=== PATIENT | female | born 1990 | race Caucasian/White ===

== ENCOUNTER → 2022-10-30 | Outpatient (CLI) | payer OTHER, SELFPAY ==
--- NOTE | 2022-10-30 09:00 | CYSPIN_PTH ---
PATIENT: JW JOHNSON LOC: CT U#:[id number] AGE/SX: 32/F ROOM: RE10/30/[address]: Dr. Kacy Mullen MD : 1990 BED: DIS: 10/30/2022 SPEC #: [id number] RECD: 10/31/22 08:38 STATUS: CARLOS MANUEL TRIMBLE #: [id number] SHIN: 10/30/22 09:[address]: Kacy Mullen DEPT: CYTOLOGY RECD BY: Rachel Henry Tissues: Urine Procedures: Pap Stain (control) Special Stain Group II Cytospin Fluid HEADER OPERATION: Not noted PRE-OP DIAGNOSIS: Not noted TISSUE SUBMITTED: Urine for cytology DIAGNOSIS CYTOLOGY Urine for cytology (cytospin): Negative for high-grade urothelial carcinoma (NHGUC), Gricelda System Category II. See comment. MAE:radha 10/31/2022 COMMENT The specimen predominantly consists of squamous epithelial cells. Clinical correlation and appropriate follow up are necessary. The Gricelda System for urine cytology diagnostic categorization was used in the evaluation of this case. CYTOLOGY STUDY Slides are reviewed. CYTOLOGY GROSS Received is 40 ml of cloudy yellow fluid labeled with the patient's name and and designated per the requisition as urine. Submitted for cytology preparation. / radha 10/30/2022 TC:4 CPT: 86415
[2022-10-30 18:26] LABS: Cytology, Body Fluid / CSF SEE PATHOLOGY REPORT
== END | disposition home or self-care (01) ==
PROVIDERS: Referring Provider Urology; Visit Provider Urology
DX: R31.0 Gross hematuria (principal)
CPT/HCPCS: 88108; 88313

== ENCOUNTER → 2022-11-09 | Outpatient (CLI) | payer SELFPAY, OTHER ==
--- NOTE | 2022-11-09 13:00 | CT_ITS ---
STUDY: CT ABDOMEN AND PELVIS WITH AND WITHOUT CONTRAST REASON FOR EXAM: Female, 32 years old. GROSS HEMATURIA RADIATION DOSAGE (If Supplied By Facility): CTDIvol = ( 21.51 ) mGy, DLP = ( 4130.71 ) mGycm TECHNIQUE: Transaxial images were obtained from the dome of the diaphragm to the symphysis pubis without oral contrast. IV 100mL Isovue-300 was administered. Sagittal and coronal images were reconstructed. Individualized dose optimization techniques were used for this CT. COMPARISON: None. FINDINGS: The visualized lung bases are unremarkable. The visualized portions of the heart are within normal limits. Normal liver. Normal gallbladder and extrahepatic biliary system. Normal spleen. Normal pancreas. Normal bilateral adrenal glands. Normal right kidney. Normal left kidney. No definite renal or ureteral stones are seen. There is no hydronephrosis on either side. Evaluation of the GI tract is limited by absence of oral contrast. Cannot exclude stomach wall thickening. No dilated loops of bowel or evidence for obstruction. Cannot exclude segmental thickening of the goodson of the small or large bowel. Cannot exclude enteritis or colitis. Appendix within normal limits. Normal abdominal aorta. Normal inferior vena cava. Normal retroperitoneum. Normal urinary bladder. Normal visualized uterus. 4.5 cm probable right ovarian cyst. Pelvic ultrasound recommended. Normal abdominal wall. Normal osseous structures. CT/CT Abd/Pelvis W/WO Contrast IMPRESSION: 4.5 cm probable right ovarian cyst. Pelvic ultrasound recommended. No other definite acute or significant abnormality seen. Electronically Signed: Merlin Gann MD at 20:01 EDT ,
== END | disposition home or self-care (01) ==
LOC: CT 12:44
PROVIDERS: PCP Physician Assistant; Referring Provider Urology; Visit Provider Urology
DX: R31.0 Gross hematuria (principal)
CPT/HCPCS: 74178; Q9967

== ENCOUNTER 2022-11-15 06:33 | Day surgery (SDC) | payer SELFPAY, OTHER ==
[2022-11-09 13:34] LABS: Hematocrit 43.4 % (37-47); Hemoglobin 13.8 g/dL (12.0-15.0); Mean Corp Hgb Conc 31.8 g/dL (32-36); Mean Corpuscular Hgb 26.8 pg (27.0-32.0); Mean Corpuscular Volume 84.3 fL (81-99); Mean Platelet Vol. 8.9 fl (6.2-12.0); Platelet Count 288 K/mm3 (150-450); RBC Distribution Width CV 14.2 % (11.6-14.6); RBC Distribution Width SD 43.7 fl (35.1-43.9); Red Blood Count 5.15 M/mm3 (4.2-5.4); White Blood Count 9.6 K/mm3 (4.4-11.0)
[2022-11-09 13:49] LABS: Prothrombin Time (Protime)PT. 12.7 SECONDS (11.7-14.9)
[2022-11-09 13:50] LABS: Partial Thromboplast Time 26.2 Seconds (24.1-36.2)
[2022-11-09 13:58] LABS: AST(SGOT) 11 U/L (15-37); Alanine Aminotransfer ALT/SGPT 22 U/L (13-56); Albumin, Serum 3.5 g/dL (3.2-5.0); Alkaline Phosphatase 71 U/L (45-117); Bilirubin, Direct 0.11 mg/dL (0.00-0.30); Globulin 3.7 g/dL (2.2-4.2); Protein, Total 7.2 g/dL (6.4-8.2)
[2022-11-15] VITALS (9 sets, daily range): BP systolic 118–145; BP diastolic 63–84; PULSE 64–82; RESP 16; TEMP 36.4–37.2; O2SAT 92–99; BMI 38.2
[2022-11-15] MEDS: Lactated Ringers 1,000 ML 15 ML IV (06:50)
[2022-11-15 07:29] LABS: Internal QC Validated? YES +Cl - CLEAR BKGD; Pregnancy, Urine Negative Negative
--- NOTE | 2022-11-15 10:10 | DCINST_ITS ---
Discharge Instructions Diet Discharge Diet: No restrictions Activity Discharge Activity: Return to Normal Activity Dressing / Incision Call your doctor if you observe: Fever of 101 or Higher, Inability to urinate and Inability to have a bowel movement Follow Up Care Please Follow Up With: Kacy Mullen MD When: The office will call the patient for follow-up appointment. Test Results: Test results from this visit will be discussed in further detail at your follow- up appointment, if applicable. Discharge Plan Admission Attending Provider: Kacy Mullen Primary Care Provider: Didi Bennett Consulting Providers: Mac Gomez Discharge Orders/Prescriptions Referrals / Follow Up: Didi Bennett PA [Primary Care Provider] - Disposition Disposition (needs filled in before D/C Order can be placed): Home, Self Care
--- NOTE | 2022-11-15 10:10 | SUR.PHASEI ---
WHEN RN ATTEMPTS TO SPEAK WITH PATIENT, SHE TURNS HER HEAD AWAY AND WILL NOT SPEAK, FACIAL EXPRESSION CONVEYS ANNOYANCE. WILL NOT ANSWER QUESTIONS.
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
== END 2022-11-15 11:34 | disposition home or self-care (01) ==
LOC: SDC 06:34 → AC 06:35
PROVIDERS: Anesthesiology; PCP Physician Assistant; Referring Provider Urology; Visit Provider Urology
PROC: 0TBB8ZX Excision of Bladder, Via Natural or Artificial Opening Endoscopic, Diagnostic (ICD-10-PCS; CPT 52000; principal; 2022-11-15 08:30)
DX: R31.0 Gross hematuria (principal); K50.90 Crohn's disease, unspecified, without complications; R35.1 Nocturia; N81.4 Uterovaginal prolapse, unspecified; E78.5 Hyperlipidemia, unspecified
CPT/HCPCS: 52000; 36415; 80076; 81025; 85027; 85610; 85730; 87086; J7120; J2405

== ENCOUNTER → 2022-11-19 | Outpatient (CLI) | payer SELFPAY, OTHER ==
--- NOTE | 2022-11-19 14:38 | US_ITS ---
INDICATION: OVARIAN CYST EXAMINATION: Ultrasound US Pelvis Non-OB Complete TECHNIQUE: Transabdominal and transvaginal pelvic ultrasound was performed. Grayscale, spectral waveform, and color flow Doppler evaluation of the adnexa. COMPARISON: CT abdomen and pelvis November 09, 2022 FINDINGS: UTERUS: Anteverted. The uterus measures 8.02 x 3.05 x 4.79 cm.. There is no uterine mass. The endometrial stripe measures 4.5 mm in AP diameter which is within normal limits. RIGHT OVARY: 2.76 x 1.67 x 2.24 cm. Non-enlarged, normal echogenicity. This includes a well-defined 1.72 x 0.65 x 1.21 cm hypoechogenicity consistent with a follicular cyst, notably smaller in size from the hypodense lesion seen by CT. There is normal arterial inflow and venous outflow present in the right ovary. LEFT OVARY: 3.03 x 1.96 x 2.12 cm.. Non-enlarged, normal echogenicity. There is normal arterial inflow and venous outflow present in the left ovary. URINARY BLADDER: At the time of scanning, the bladder measures 13.85 x 7.6 x 9.16 cm, corresponding to a volume of 445.3 mL. No bladder wall thickening. FREE FLUID: None. US/Pelvic (Non ) IMPRESSION: Unremarkable pelvic ultrasound. There is no cystic lesion in the right ovary specifically correlating to the 4.5 cm hypodense area noted by CT earlier this month. Electronically Signed: Sin Fenton MD at 16:51 EDT Reading Location ID and State: [id number] / Unknown , Service support ,
== END | disposition home or self-care (01) ==
PROVIDERS: PCP Physician Assistant; Referring Provider Urology; Visit Provider Urology
DX: N83.201 Unspecified ovarian cyst, right side (principal)
CPT/HCPCS: 76856

== ENCOUNTER → 2022-12-10 | Outpatient (CLI) | payer OTHER, SELFPAY ==
[2022-12-10 15:00] LABS: Hematocrit 44.7 % (37-47); Hemoglobin 13.9 g/dL (12.0-15.0); Mean Corp Hgb Conc 31.1 g/dL (32-36); Mean Corpuscular Hgb 26.5 pg (27.0-32.0); Mean Corpuscular Volume 85.3 fL (81-99); Mean Platelet Vol. 9.4 fl (6.2-12.0); Platelet Count 235 K/mm3 (150-450); RBC Distribution Width SD 43.5 fl (35.1-43.9); Red Blood Count 5.24 M/mm3 (4.2-5.4); White Blood Count 9.6 K/mm3 (4.4-11.0)
[2022-12-10 15:18] LABS: Follicle Stimulating Hormone 1.1 mIU/mL; Luteinizing Hormone 2.8 mIU/mL; Thyroid Stim Hormone (TSH) 0.91 uIU/mL (0.358-3.74)
[2022-12-10 15:26] LABS: Hemoglobin A1c 5.5 % (3.8-5.6)
== END | disposition home or self-care (01) ==
LOC: WOBLAB 14:13
PROVIDERS: PCP Physician Assistant; Visit Provider Student in an Organized Health Care Education/Training Program
DX: N93.9 Abnormal uterine and vaginal bleeding, unspecified (principal)
CPT/HCPCS: 36415; 83001; 83002; 83036; 84443; 85027

== ENCOUNTER 2022-12-27 08:58 | Day surgery (SDC) | payer SELFPAY, OTHER ==
[2022-12-27] VITALS (11 sets, daily range): BP systolic 110–131; BP diastolic 59–83; PULSE 52–77; RESP 12–18; TEMP 36.1–36.8; O2SAT 92–100; BMI 37.0
--- NOTE | 2022-12-27 07:19 | PCM.HP.BLA ---
History and Physical Date of Admission: 12/27/22 HPI: 32-year-old female with abnormal uterine bleeding, pelvic pain, ovarian cyst plan for hysteroscopy, dilation curettage, laparoscopic ovarian cystectomy. Denies headache or vision changes, chest pain or shortness of breath, nausea or vomiting, diarrhea constipation, fevers or chills. 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 Depression and anxiety 2. GERD Surgical history: 1. Cystoscopy Medications: 1. Omeprazole 2. Duloxetine Allergies: Adhesive tape causes a rash, succinylcholine Family history: Denies history of blood clots or bleeding disorders Social history: Denies tobacco, alcohol, drug use review of system: Negative otherwise stated above Physical exam: Blood pressure 123/83, heart rate 75, respiratory rate 16, temp 97 ?F, oxygen saturation 99% on room air General: No acute distress HEENT: Normal cephalic/atraumatic Cardiac: Regular rate rhythm Respiratory: Clear to auscultation bilaterally Abdomen: Soft, nontender Extremities: No edema Musculoskeletal: Moves all extremities equally Neurologic: No focal deficits Assessment/plan: 32-year-old female with abnormal uterine bleeding, pelvic pain, ovarian cyst plan for hysteroscopy, dilation curettage, laparoscopic ovarian cystectomy. All risk, benefits, alternatives discussed with patient. Risk include but are not limited to: Risk of bleeding to the point of transfusion, infection, injury to surrounding tissue including bowel/bladder potentially requiring prolonged Glasgow catheter use/major abdominal vessels, VTE, ICU admission. Patient aware and consented.
[2022-12-27 09:43] LABS: Internal QC Validated? YES +Cl - CLEAR BKGD; Pregnancy, Urine Negative Negative
[2022-12-27] MEDS: Lactated Ringers 1,000 ML 15 ML IV (09:52)
--- NOTE | 2022-12-27 10:12 | PCM.OPRPT ---
Report of Operation Date of Procedure: 12/27/22 Pre-Operative Diagnosis: Pelvic pain, abnormal bleeding, ovarian cyst Post-Operative Diagnosis: Pelvic pain, abnormal bleeding, ovarian cyst, endometriosis Surgery/Procedure Performed:: Hysteroscopy, dilation curettage, laparoscopic right ovarian cystectomy, lysis of adhesion Description of Surgical Findings:: Normal-appearing external genitalia. Minimal uterine descensus. Normal-appearing cervix. Thickened endometrial lining on hysteroscopy. Enlarged right simple ovarian cyst, drained clear yellow fluid. Adhesion of colon fat to left pelvic sidewall. Endometriosis present in the posterior cul-de-sac. Surgeon: Karishma Good silver buffer: Leo Chavez Type of Anesthesia: General Specimen's removed: Endometrial curetting, right ovarian cyst Estimated Blood Loss (mL): 10cc Fluids Replaced: 800cc Description of Procedure: Indication/risk/benefits: 32-year-old female with abnormal uterine bleeding, pelvic pain, ovarian cyst plan for hysteroscopy, dilation curettage, laparoscopic ovarian cystectomy. All risk, benefits, alternatives discussed with patient. Risk include but are not limited to: Risk of bleeding to the point of transfusion, infection, injury to surrounding tissue including bowel/bladder potentially requiring prolonged Glasgow catheter use/major abdominal vessels, VTE, ICU admission. Patient aware and consented. Procedure: Patient taken to the operating room and placed under general anesthesia. Prepped and draped in the usual sterile fashion in the dorsal lithotomy position. Glasgow catheter placed. Weighted speculum placed in posterior vagina and Herrera retractor used to visualize the cervix. Anterior lip of the cervix grasped with Allis clamp. Cervix sequentially dilated and hysteroscopy completed with findings above. Curettings completed in 360 degree manner. Sargis manipulator placed and Allis clamp removed. Weighted speculum removed. Gloves were changed attention turned to the anterior abdominal wall. Supraumbilical skin incision made with scalpel and trocar placed under direct visualization. Insufflation of the abdomen completed. Right and left lower quadrant trocars placed under direct visualization. Inspection of the abdominal cavity noted findings stated above. Laparoscopic scissors were utilized to dissect colonic adhesions to left pelvic sidewall. Right ovarian cyst grasped and incised, drained. Removed using LigaSure device. Dissection bed hemostatic. Roman placed. Endometriosis noted in the posterior cul-de-sac. No fulguration or excision completed due to location and proximity to left ureter. Ovarian cyst wall removed through the right 8 mm trocar. Abdomen desufflated and trocars removed. Skin closed with subcuticular stitch. Uterine manipulator removed. Glasgow catheter removed. At the end of the procedure all needle, lap, sponge counts were correct. UOP: 50cc clear yellow urine Complications None Admit VTE Documentation VTE Mechan Device Prophylaxis: SCD's
--- NOTE | 2022-12-27 10:35 | EMB_PTH ---
PATIENT: JW JOHNSON LOC: [facility] – [place] U#:[id number] AGE/SX: 32/F ROOM: RE12/27/[address]: Dr. Karishma Good, : 1990 BED: DIS: 12/27/2022 SPEC #: [id number] RECD: 12/27/22 11:49 STATUS: CARLOS MANUEL NAI #: [id number] SHIN: 12/27/22 10:[address]: Karishma Good DEPT: SURGICAL PATHOLOGY RECD BY: Rachel Henry ENTERED: 12/27/22 13:28 SP TYPE: ENDOM BX/C USZANNE DR: SAM Bond Tissues: A - Endometrium, NOS B - OVARIAN CYST Procedures: Surgery Specimen Level IV HEADER OPERATION: Hysteroscopy, dilation and curettage PRE-OP DIAGNOSIS: Abnormal uterine bleeding, pelvic pain, ovarian cyst TISSUE SUBMITTED: A. Endometrial curettings B. Right ovarian cyst MICROSCOPIC DIAGNOSIS A. Endometrial curettings: Proliferative endometrium. B. Right ovarian cyst, cystectomy: Physiologic follicular cyst. SJ: 12/28/2022 MICROSCOPIC DESCRIPTION Slides are reviewed. GROSS DESCRIPTION A. Received in formalin is one container labeled with the patient name and designated endometrial curettings. The specimen consists of multiple fragments of hemorrhagic soft tissue measuring in aggregate 5 x 3 x 0.2 cm. The specimen is totally submitted in two cassettes. B. Received in fixative is one container labeled with the patient's name and designated right ovary cyst. The specimen consists of a previously opened cyst measuring 2.5 x 1.5 x 0.5 cm. Outer surface of cyst is without any appellations. Inner cyst wall ragged. It is serially sectioned. Also present in the container multiple pieces of soft tissue measuring in aggregate1.5 x 0.5 x 0.2 cm. The specimen is totally submitted in two cassettes. /MAE:jaqueline 12/27/22 TC:4 CPT: 26091 x 2
--- NOTE | 2022-12-27 10:37 | PCM.DC ---
Discharge Instructions Diet Discharge Diet: No restrictions Activity Discharge Activity: Return to Normal Activity and May Shower May resume sexual activity in: 2 weeks Weight Bearing Status: Weight bearing as tolerated Lifting Restrictions: No greater than 15 pounds Dressing / Incision Call your doctor if your incision/area has: Continuous Slow Oozing, Increased Pain/ Swelling, Increased Redness and Foul Smelling Discharge Call your doctor if you observe: Fever of 101 or Higher, Inability to urinate, Using more than 1 pad per hour, Shortness of breath, Chest pain, Calf discomfort and Uncontrolled pain Cleanse incision/area with: Soap & Water and Keep Dressing Clean & Dry Follow Up Care Please Follow Up With: Karishma Good DO When: 2 weeks post operative visit. Test Results: Test results from this visit will be discussed in further detail at your follow-up appointment, if applicable. Discharge Plan Admission Primary Reason for Your Visit: Hysteroscopy, laparoscopy Attending Provider: Karishma Good Primary Care Provider: Didi Bennett Discharge Orders/Prescriptions Prescriptions: New oxycodone 5 mg tablet 5 mg PO Q6H PRN (Reason: pain (scale score 7-10)) 3 Days Qty: 5 0RF Continued duloxetine 30 mg capsule,delayed release(DR/EC) 30 mg PO DAILY Patient Comments: TAKE ONE CAPSULE BY MOUTH DAILY omeprazole 20 mg tablet,delayed release (DR/EC) 20 mg PO DAILY PRN (Reason: GERD) Referrals / Follow Up: Didi Bennett PA [Primary Care Provider] - Disposition Disposition (needs filled in before D/C Order can be placed): Home, Self Care
[2022-12-27] MEDS: oxyCODONE 5 MG Tablet PO (15:05)
[2022-12-27] MEDS: Acetaminophen 500 MG Tablet 1000 MG PO (15:05)
== END 2022-12-27 16:46 | disposition home or self-care (01) ==
LOC: SDC 08:59 → AC 09:00
PROVIDERS: Anesthesiology; PCP Physician Assistant; Referring Provider Student in an Organized Health Care Education/Training Program; Visit Provider Student in an Organized Health Care Education/Training Program
PROC: 0UDB8ZZ Extraction of Endometrium, Via Natural or Artificial Opening Endoscopic (ICD-10-PCS; CPT 58558; principal; 2022-12-27 10:25)
PROC: (CPT 58661; 2022-12-27 10:25)
DX: N83.01 Follicular cyst of right ovary (principal); N80.329 Endometriosis of the posterior cul-de-sac, unspecified depth; N93.9 Abnormal uterine and vaginal bleeding, unspecified; R10.2 Pelvic and perineal pain; K21.9 Gastro-esophageal reflux disease without esophagitis; F32.A Depression, unspecified; F41.9 Anxiety disorder, unspecified; Z79.899 Other long term (current) drug therapy
CPT/HCPCS: 58662; 58558; 00840; 81025; 86850; 86900; 86901; 88305; J7120; J2405

== ENCOUNTER 2023-02-07 07:43 | Day surgery (SDC) | payer SELFPAY, OTHER ==
[2023-02-07] VITALS (15 sets, daily range): BP systolic 117–146; BP diastolic 66–95; PULSE 63–87; RESP 16–22; TEMP 36.3–36.8; O2SAT 93–100; BMI 37.5
[2023-02-07 08:08] LABS: Internal QC Validated? YES +Cl - CLEAR BKGD; Pregnancy, Urine Negative Negative
--- NOTE | 2023-02-07 08:08 | PCM.OPRPT ---
Report of Operation Date of Procedure: 02/07/23 Pre-Operative Diagnosis: Gross hematuria and flank pain Post-Operative Diagnosis: Same Surgery/Procedure Performed:: Cystoscopy, bilateral selective cytology, bilateral flexible ureteroscopy, bilateral ureteral stent insertion Surgeon: Kacy Mullen Type of Anesthesia: General Specimen's removed: Bilateral renal pelvis flushings for selective cytology Description of Procedure: The patient is a 33-year-old female with gross hematuria. She has had a negative CT scan, negative cystoscopy. She also has flank and abdominal discomfort. We discussed further evaluation with ureteroscopy and she has agreed to proceed. Informed consent was obtained. The patient was taken the operating room and placed on the operating room table. Anesthesia monitored the head, neck, airway, IV access and vital signs throughout the case. Once anesthesia was appropriately administered, the patient was placed into dorsolithotomy position was prepped and draped in usual sterile fashion. The cystoscope was inserted through the urethra under direct visualization into the urinary bladder. The bladder mucosa was visualized in its entirety revealing no evidence of mass, erythema, foreign body or other abnormality. Using a Pollick catheter, 1 for each side, access was obtained to each renal pelvis and irrigations were performed and the fluid was sent for cytology. At this time a 0.035 Glidewire was inserted into the left renal pelvis as seen on fluoroscopy. The flexible ureteroscope was advanced over the wire into the distal ureter and obstruction was met. After several attempts at advancing the ureteroscope over the Glidewire, the decision was made to place a ureteral stent which was done without difficulty. This process was repeated on the patient's right side also revealing distal ureteral narrowing and inability to advance the ureteroscope past the distal 1 cm of the ureter. After the second ureteral stent was in position with good curling in the renal pelvis and urinary bladder, the patient's bladder was emptied and the case was terminated. She was awakened and taken to the recovery room in good condition. Grafts/Implants Used: 6 x 24 JJ stents x2 Complications None Admit VTE Documentation VTE Present on Admission: Yes VTE Mechan Device Prophylaxis: SCD's VTE Pharm Prophylaxis ordered?: No
[2023-02-07] MEDS: Lactated Ringers 1,000 ML 15 ML IV ×2 (08:22→11:05)
[2023-02-07] MEDS: Cefazolin 2 GM in 0.9% Normal Saline (100mL Bag) 100 ML IV (08:46)
--- NOTE | 2023-02-07 09:00 | FLU_PTH ---
PATIENT: JW JOHNSON LOC: [facility] – [place] U#:[id number] AGE/SX: 33/F ROOM: RE02/07/[address]: Dr. Kacy Mullen MD : 1990 BED: DIS: 02/07/2023 SPEC #: [id number] RECD: 02/07/23 09:30 STATUS: CARLOS MANUEL NAI #: [id number] SHIN: 02/07/23 09:[address]: Kacy Mullen DEPT: CYTOLOGY RECD BY: Rachel Henry ENTERED: 02/07/23 10:43 SP TYPE: Fluid OTHR DR: SAM Bond Tissues: A - Pelvis, NOS B - Pelvis, NOS Procedures: Special Stain Group II Surgery Specimen Level IV Cytospin Fluid HEADER OPERATION: Cysto, bilateral selective cytology, bilateral ureteroscopy PRE-OP DIAGNOSIS: Gross hematuria, overactive bladder, nocturia TISSUE SUBMITTED: A - Right renal pelvic washings, B - Left renal pelvic washings DIAGNOSIS CYTOLOGY A. Right renal pelvic washings fluid (cytospin and cell block): Negative for high-grade urothelial carcinoma (NHGUC), Gricelda System Category II. See comment. B. Left renal pelvic washings fluid (cytospin and cell block): Negative for high-grade urothelial carcinoma (NHGUC), Gricelda System Category II. See comment. SJ:rg 02/08/2023 COMMENT A & B. Clusters of benign urothelial cells are noted. Clinical correlation and appropriate follow up are necessary. The Gricelda System for urine cytology diagnostic categorization was used in the evaluation of this case. Please make reference to previous specimen ([id number]) urine for cytology with diagnosis of negative for high-grade urothelial carcinoma (NHGUC). CYTOLOGY STUDY Slides are reviewed. CYTOLOGY GROSS A - Received is 2 ml of light pink cloudy fluid labeled with the patient's name and and designated per the requisition as right renal pelvic washings. Submitted for cytology preparation including cell block. B - Received is 2 ml of light pink cloudy fluid labeled with the patient's name and and designated per the requisition as left renal pelvic washings. Submitted for cytology preparation including cell block. / radha 02/07/2023 TC:5 CPT: 48061 x2
--- NOTE | 2023-02-07 09:49 | DCINST_ITS ---
Discharge Instructions Diet Discharge Diet: No restrictions Activity Discharge Activity: Return to Normal Activity Dressing / Incision Call your doctor if you observe: Fever of 101 or Higher, Inability to urinate and Inability to have a bowel movement Follow Up Care Please Follow Up With: Kacy Mullen MD When: The office will call to make arrangements for follow-up Test Results: Test results from this visit will be discussed in further detail at your follow- up appointment, if applicable. Discharge Plan Admission Attending Provider: Kacy Mullen Primary Care Provider: Didi Bennett Discharge Orders/Prescriptions Prescriptions: New ondansetron HCl [ondansetron HCl] 8 mg tablet 8 mg PO Q8H PRN PRN (Reason: Nausea) 7 Days Qty: 20 0RF oxycodone-acetaminophen [Percocet] 5-325 mg tablet 1 tab PO Q8H PRN (Reason: pain) 5 Days Qty: 15 0RF cephalexin [cephalexin] 500 mg capsule 500 mg PO Q12 3 Days Qty: 6 0RF phenazopyridine [Pyridium] 200 mg tablet 200 mg PO TID PRN PRN (Reason: Bladder Spasms) 7 Days Qty: 30 0RF Continued duloxetine 30 mg capsule,delayed release(DR/EC) 30 mg PO DAILY Patient Comments: TAKE ONE CAPSULE BY MOUTH DAILY omeprazole 20 mg tablet,delayed release (DR/EC) 20 mg PO DAILY PRN (Reason: GERD) Referrals / Follow Up: Didi Bennett PA [Primary Care Provider] - Disposition Disposition (needs filled in before D/C Order can be placed): Home, Self Care
[2023-02-07] MEDS: Ketorolac 30 MG/ML Syringe IV (11:25)
--- NOTE | 2023-02-07 12:25 | SUR.PHASEI ---
VERY HIGH ANXIETY. ATIVAN 1 MG GIVEN TOTAL, LAST AT 1009 KEEPS STATING SHE'S VERY PAINFUL, MOANING AT INTERVALS WHEN AWAKENING. DILAUDID 1.5 MG. TORADOL GIVEN. UPSET THAT'S SHE'S HAVING ANY PAIN. WAS STARTING TO DESAT AFTER LAST DOSE NARCOTICS GIVEN 1017, BEHAVES SIMILAR TO SLEEP APNEA. NEEDS MUCH REASSURANCE, WAS TRYING TO PULL RN INTO BED FOR CONTINUOUS HUGS REPEATEDLY. PATIENT KNOWN TO THIS RN, RESPONDED TO ANESTHESIA, AWAKENING, PAIN TOLERANCE WITH PREVIOUS SURGERY WHICH THIS RN RECOVERED. DR REID WAS UPDATED, ORDERED THE TORADOL, PO PYRIDIUM AFTER TAKING PO. PATIENT STATES SHE DOES NOT HAVE A RIDE UNTIL 5 PM.
[2023-02-07] MEDS: Phenazopyridine 95 MG Tablet 190 MG PO (13:00)
[2023-02-07] MEDS: Oxycodone/Apap 5/325 Tablet PO (13:19)
[2023-02-19 14:27] LABS: Cytology, Body Fluid / CSF SEE PATHOLOGY REPORT
[2023-02-19 14:27] LABS: Cytology, Body Fluid / CSF SEE PATHOLOGY REPORT
== END 2023-02-07 17:12 | disposition home or self-care (01) ==
LOC: SDC 07:45 → AC 07:46
PROVIDERS: Anesthesiology; PCP Physician Assistant; Referring Provider Urology; Visit Provider Urology
PROC: 0TJ98ZZ Inspection of Ureter, Via Natural or Artificial Opening Endoscopic (ICD-10-PCS; CPT 52352; principal; 2023-02-07 08:50)
DX: N13.5 Crossing vessel and stricture of ureter without hydronephrosis (principal); R31.0 Gross hematuria; E78.5 Hyperlipidemia, unspecified; R35.1 Nocturia; N32.81 Overactive bladder; N83.209 Unspecified ovarian cyst, unspecified side; N80.9 Endometriosis, unspecified; Z79.899 Other long term (current) drug therapy
CPT/HCPCS: 52332; 00910; 76000; 81025; 88108; 88305; 88313; J7120; C2617; J2405

== ENCOUNTER 2023-02-14 12:04 | Inpatient (IN) | payer OTHER, SELFPAY ==
[2023-02-14] VITALS (10 sets, daily range): BP systolic 125–144; BP diastolic 54–90; PULSE 94–143; RESP 15–19; TEMP 36.8–39.4; O2SAT 91–100; BMI 37.2; BMI 37.5
--- NOTE | 2023-02-14 13:01 | EKG12_ITS ---
Test Reason : FEVER Blood Pressure : / mmHG Vent. Rate : 131 BPM Atrial Rate : 131 BPM P-R Int : 148 ms QRS Dur : 084 ms QT Int : 290 ms P-R-T Axes : 026 008 014 degrees QTc Int : 428 ms Sinus tachycardia Possible Anterior infarct , age undetermined Abnormal ECG Confirmed by KOFFI MACHADO, KENNY ([id number]), design editor MICHAEL FLORES ([id number]) on 02/18/2023 2:18:50 PM Referred By: LESLEY Confirmed By:KENNY RAIN MD
--- NOTE | 2023-02-14 13:22 | CT_ITS ---
HISTORY: bilateral flank pain. TECHNIQUE: Helically acquired images were obtained of the abdomen and pelvis after the intravenous administration of 100mL Isovue-370. A radiation dose optimization technique was used for this scan. 438 images. COMPARISON: 11/09/2022. FINDINGS: LOWER CHEST: Lung bases clear. BOWEL: Bowel nondilated. No focal inflammatory change observed. PERITONEUM: No significant ascites. LIVER: No enhancing mass. Enlarged at 20 cm in length. GALLBLADDER/BILIARY TREE: Gallbladder present. SPLEEN/PANCREAS/ADRENAL GLAND: Homogeneous and nonenlarged. KIDNEYS: Interval placement of bilateral ureteral stents without hydronephrosis. Mild left greater than right perinephric stranding. Small region of decreased cortical enhancement in the left renal cortex. 3 mm left renal cyst. VESSELS: No abdominal aortic aneurysm. PELVIC ORGANS: 1.7 cm small cyst or dominant follicle in the right ovary. BONES: Intact. CT/Abdomen/Pelvis W IV Cont ONLY IMPRESSION: Small region of decreased cortical enhancement in the left kidney, concerning for focal pyelonephritis. Left greater than right perinephric edema or inflammation status post ureteral stent placement. No hydronephrosis. Decreased size of right ovarian cyst. Electronically Signed: Court Joy MD at 14:24 EDT ,
--- NOTE | 2023-02-14 13:25 | EDS_ITS ---
HPI History of Present Illness Chief Complaint: Fever Narrative Narrative: 33-year-old female with bilateral flank pain and fever that started last night. She has had the back pain and hematuria and has been seeing urology. She had stents placed on the fifth of this month. She states her back pain worsened last night and she started develop fevers. No constipation or diarrhea. No cough or shortness of breath. PFSH PFSH Medical History Anxiety Back pain Bladder disease Dietary restriction Easy bruising Endometriosis Fatty liver Gastric reflux Gross hematuria History of Crohn's disease History of edema History of GI bleed History of pain when walking Hx of Lyme disease Injury of head and neck Leg cramps Migraine headache Non-smoker Shortness of breath on exertion Syncope Wears glasses Home Medications duloxetine 30 mg capsule,delayed release 30 mg PO DAILY 12/21/22 [History Last Taken Unknown] omeprazole 20 mg tablet,delayed release 20 mg PO DAILY PRN GERD 12/21/22 [History Last Taken Unknown] cephalexin 500 mg capsule 500 mg PO Q12 post-operative 3 days #6 CAPSULES 02/07/23 [Rx Last Taken Unknown] ondansetron HCl 8 mg tablet 8 mg PO Q8H PRN PRN Nausea 7 days #20 TABLETS 02/07/23 [Rx Last Taken Unknown] oxycodone-acetaminophen 5 mg-325 mg tablet (Percocet) 1 tab PO Q8H PRN pain 5 days #15 tabs 02/07/23 [Rx Last Taken Unknown] phenazopyridine 200 mg tablet (Pyridium) 200 mg PO TID PRN PRN Bladder Spasms 7 days #30 tabs 02/07/23 [Rx Last Taken Unknown] Allergy/AdvReac Type Severity Reaction Status Date / Time succinylcholine Allergy Unknown Other Verified 02/14/23 12:07 adhesive tape AdvReac Rash Verified 02/14/23 12:07 Surgical History History of esophagogastroduodenoscopy (EGD) History of removal of Port-a-Cath History of stapedectomy History of surgery Hx of colonoscopy Hx of local excision of skin lesion Hx of oral surgery Social History Smoking Status: Never smoker ROS ROS ED Constitutional Constitutional ED: Reports chills, fever(s) and subjective; Denies sweats Eyes Eyes: Denies blurry vision or change in vision ENT ENT ED: Denies ear pain or sore throat Cardiovascular Cardiovascular: Denies chest pain, palpitations or racing heartbeat Respiratory/Chest Respiratory/Chest: Denies cough, dyspnea or sputum Gastrointestinal Gastrointestinal: Reports abdominal pain and nausea; Denies constipation, diarrhea or vomiting Genitourinary Genitourinary ED: Reports hematuria; Denies dysuria or urinary frequency Musculoskeletal Musculoskeletal: Denies arthralgias, myalgias or neck pain Integumentary Denies abscess, Abrasions or rash Neurologic Neurologic: Denies headache(s), paresthesias or weakness Psychiatric Psychiatric: Denies anxiety, depression, suicidal ideation or suicidal thoughts Endocrine Endocrinology: Denies polydipsia or polyuria EXAM Physical Exam Const Vital Signs: 02/14/23 12:05 02/14/23 12:19 02/14/23 12:24 Temperature 102.9 F H 98.5 F Temperature Source Oral Temporal Pulse Rate 143 H 128 H Respiratory Rate 18 18 Respiratory Effort Normal Non-Labored Respiratory Pattern Normal Blood Pressure 144/90 H 132/75 H Blood Pressure Mean 108 94 Pulse Ox 95 94 Oxygen Delivery Method Room Air Room Air Positive well nourished General Appearance ED: NAD; Negative for pallor HEENT Reports moist mucous membranes Eyes PERRL and EOMs intact bilaterally Chest Wall inspection of chest normal Resp normal respiratory effort and clear to auscultation bilaterally Cardio regular rhythm Rate: tachycardic GI normal to inspection, nondistended, normoactive bowel sounds Back/Spine General Back: CVA tenderness bilateral Extremity normal to inspection Neuro oriented x3 and CN's II-XII intact bilaterally Sensorium / Orientation: alert Motor Exam: strength 5/5 throughout Psych mental status grossly normal Skin no rashes or lesions noted and no wounds General Skin Exam: Negative for jaundice or pallor MDM MDM MDM Narrative Medical decision making narrative: 33-year-old female with history of hematuria with bilateral stents placed by Dr. Mullen on the fifth. She is complaining of fever, chills. She has bilateral flank pain which is worsened. Tmax of 103 at home. She took nothing prior to arrival for a fever. She is 102.3 here. She is given Tylenol. For her flank pain she was given fentanyl and Zofran for nausea. Given that she is tachycardic and febrile sepsis work-up was pursued. Most likely she has UTI/pyelonephritis however differential includes dehydration, electrolyte abnormalities, A-fib, sepsis, pneumonia, urinary outlet obstruction. Sepsis labs were ordered. Patient pancultured. Discharge Plan Triage Chief Complaint: Fever ED Provider: Anthony Burt Dx/Rx/DC Orders Prescriptions: No Action duloxetine 30 mg capsule,delayed release(DR/EC) 30 mg PO DAILY Patient Comments: TAKE ONE CAPSULE BY MOUTH DAILY omeprazole 20 mg tablet,delayed release (DR/EC) 20 mg PO DAILY PRN (Reason: GERD) ondansetron HCl [ondansetron HCl] 8 mg tablet 8 mg PO Q8H PRN PRN (Reason: Nausea) 7 Days Qty: 20 0RF oxycodone-acetaminophen [Percocet] 5-325 mg tablet 1 tab PO Q8H PRN (Reason: pain) 5 Days Qty: 15 0RF cephalexin [cephalexin] 500 mg capsule 500 mg PO Q12 3 Days Qty: 6 0RF phenazopyridine [Pyridium] 200 mg tablet 200 mg PO TID PRN PRN (Reason: Bladder Spasms) 7 Days Qty: 30 0RF Primary Care Provider: Didi Bennett Referrals: Didi Bennett PA [Primary Care Provider] -
--- NOTE | 2023-02-14 13:25 | RAD_ITS ---
HISTORY: sepsis. TECHNIQUE: XR Chest 1 View. COMPARISON: None. FINDINGS: CARDIOMEDIASTINAL BORDERS: Cardiac silhouette within normal limits in size. Mediastinal contour unremarkable. LUNGS: Mild linear left basilar opacity. PLEURA: No pleural effusion or pneumothorax seen. OSSEOUS STRUCTURES: Unremarkable. RAD/Chest 1 View (Portable) IMPRESSION: Mild left basilar atelectasis. Electronically Signed: Court Joy MD at 13:42 EDT ,
--- NOTE | 2023-02-14 13:25 | EX.ED.DYSGE1 ---
HPI History of Present Illness Chief Complaint: Fever Narrative Narrative: 33-year-old female with bilateral flank pain and fever that started last night. She has had the back pain and hematuria and has been seeing urology. She had stents placed on the fifth of this month. She states her back pain worsened last night and she started develop fevers. No constipation or diarrhea. No cough or shortness of breath. PFSH PFSH Medical History Anxiety Back pain Bladder disease Dietary restriction Easy bruising Endometriosis Fatty liver Gastric reflux Gross hematuria History of Crohn's disease History of edema History of GI bleed History of pain when walking Hx of Lyme disease Injury of head and neck Leg cramps Migraine headache Non-smoker Shortness of breath on exertion Syncope Wears glasses Home Medications duloxetine 30 mg capsule,delayed release 30 mg PO DAILY 12/21/22 [History Last Taken Unknown] omeprazole 20 mg tablet,delayed release 20 mg PO DAILY PRN GERD 12/21/22 [History Last Taken Unknown] ondansetron HCl 8 mg tablet 8 mg PO Q8H PRN PRN Nausea 7 days #20 TABLETS 02/07/23 [Rx Last Taken 02/13/23] oxycodone-acetaminophen 5 mg-325 mg tablet (Percocet) 1 tab PO Q8H PRN pain 5 days #15 tabs 02/07/23 [Rx Last Taken 02/13/23] phenazopyridine 200 mg tablet (Pyridium) 200 mg PO TID PRN PRN Bladder Spasms 7 days #30 tabs 02/07/23 [Rx Last Taken 02/13/23] Allergy/AdvReac Type Severity Reaction Status Date / Time succinylcholine Allergy Unknown Other Verified 02/14/23 12:07 adhesive tape AdvReac Rash Verified 02/14/23 12:07 Surgical History History of esophagogastroduodenoscopy (EGD) History of removal of Port-a-Cath History of stapedectomy History of surgery Hx of colonoscopy Hx of local excision of skin lesion Hx of oral surgery Social History Smoking Status: Never smoker ROS ROS ED Constitutional Constitutional ED: Reports chills, fever(s) and subjective; Denies sweats Eyes Eyes: Denies blurry vision or change in vision ENT ENT ED: Denies ear pain or sore throat Cardiovascular Cardiovascular: Denies chest pain, palpitations or racing heartbeat Respiratory/Chest Respiratory/Chest: Denies cough, dyspnea or sputum Gastrointestinal Gastrointestinal: Reports abdominal pain and nausea; Denies constipation, diarrhea or vomiting Genitourinary Genitourinary ED: Reports hematuria; Denies dysuria or urinary frequency Musculoskeletal Musculoskeletal: Denies arthralgias, myalgias or neck pain Integumentary Denies abscess, Abrasions or rash Neurologic Neurologic: Denies headache(s), paresthesias or weakness Psychiatric Psychiatric: Denies anxiety, depression, suicidal ideation or suicidal thoughts Endocrine Endocrinology: Denies polydipsia or polyuria EXAM Physical Exam Const Vital Signs: 02/14/23 12:05 02/14/23 12:19 02/14/23 12:24 Temperature 102.9 F H 98.5 F Temperature Source Oral Temporal Pulse Rate 143 H 128 H Respiratory Rate 18 18 Respiratory Effort Normal Non-Labored Respiratory Pattern Normal Blood Pressure 144/90 H 132/75 H Blood Pressure Mean 108 94 Pulse Ox 95 94 Oxygen Delivery Method Room Air Room Air 02/14/23 13:29 02/14/23 13:29 02/14/23 14:07 Temperature 102.3 F H 99.8 F H Temperature Source Oral Oral Pulse Rate 117 H Respiratory Rate 19 H Respiratory Effort Respiratory Pattern Blood Pressure 134/71 H Blood Pressure Mean 92 Pulse Ox 92 Oxygen Delivery Method Room Air Room Air Positive well nourished General Appearance ED: NAD; Negative for pallor HEENT Reports moist mucous membranes Eyes PERRL and EOMs intact bilaterally Chest Wall inspection of chest normal Resp normal respiratory effort and clear to auscultation bilaterally Cardio regular rhythm Rate: tachycardic GI normal to inspection, nondistended, normoactive bowel sounds Back/Spine General Back: CVA tenderness bilateral Extremity normal to inspection Neuro oriented x3 and CN's II-XII intact bilaterally Sensorium / Orientation: alert Motor Exam: strength 5/5 throughout Psych mental status grossly normal Skin no rashes or lesions noted and no wounds General Skin Exam: Negative for jaundice or pallor MDM MDM MDM Narrative Medical decision making narrative: 33-year-old female with history of hematuria with bilateral stents placed by Dr. Mullen on the fifth. She is complaining of fever, chills. She has bilateral flank pain which is worsened. Tmax of 103 at home. She took nothing prior to arrival for a fever. She is 102.3 here. She is given Tylenol. For her flank pain she was given fentanyl and Zofran for nausea and 30 cc/kg of IV fluids.. Given that she is tachycardic and febrile sepsis work-up was pursued. Most likely she has UTI/pyelonephritis however differential includes dehydration, electrolyte abnormalities, A-fib, sepsis, pneumonia, urinary outlet obstruction. Sepsis labs were ordered. Patient pancultured. CBC shows white blood cell count of 18.7. Hemoglobin stable 14. Platelets normal at 264. Renal function electrolytes within normal limits. LFTs slightly elevated AST 45, ALT 95. EKG sinus tachycardia at a rate of 131 bpm without sign of ischemic change on my interpretation. High-sensitivity troponin 3. Lactic acid 1.4. Urinalysis positive for infection. Chest x-ray in my interpretation shows no obvious infiltrate. Radiologist interprets this as left basilar atelectasis. Patient's pulse ox initially 95% on room air now down to 92%. Her heart rate is come down to 117 from 143. Temperature is now down to 98.8. COVID and influenza swabs are pending. CT of the abdomen pelvis shows pyelonephritis. Discussed with Dr. Mullen from urology who recommended admission. She will admit her under her service. She requests a medicine consult which was obtained. Patient initially given Rocephin however Paz requests ciprofloxacin. This was given. Patient admitted to the floor in stable condition. Impression: 1. Pyelonephritis 2. Sepsis Lab Data Attestation: I reviewed the patient's lab results. Labs: Laboratory Results - last 24 hr 02/14/23 02/14/23 02/14/23 00:21 13:19 13:45 WBC 18.7 H RBC 5.26 Hgb 14.0 Hct 44.3 MCV 84.2 MCH 26.6 L MCHC 31.6 L RDW Std Deviation 41.9 RDW Coeff of Anita 13.7 Plt Count 264 MPV 8.7 Immature Gran % (Auto) 0.600 Neut % (Auto) 83.5 H Lymph % (Auto) 6.5 L [place] % (Auto) 8.8 Eos % (Auto) 0.1 Baso % (Auto) 0.5 Absolute Neuts (auto) 15.6 H Absolute Lymphs (auto) 1.22 Nucleated RBC % 0 Differential Comment SCANNED Diff Path Review September foll PT 13.5 INR 1.0 APTT 26.3 Sodium 137 Potassium 4.0 Chloride 106 Carbon Dioxide 26.0 Anion Gap 5 BUN 14 Creatinine 0.97 Estim Creat Clear Calc 67.60 Est GFR (MDRD) Af Amer 85 Est GFR (MDRD) Non-Af 70 BUN/Creatinine Ratio 14.5 Glucose 118 H Lactic Acid 1.4 Calcium 8.8 Total Bilirubin 1.00 AST 45 H ALT 95 H Alkaline Phosphatase 85 Troponin I High Sens 3 Total Protein 7.6 Albumin 3.5 Globulin 4.1 Albumin/Globulin Ratio 0.9 Urine Color Yellow Urine Clarity Sl. Cloudy Urine pH 6.0 Ur Specific [place] 1.015 Urine Protein 100 H Urine Glucose (UA) Normal Urine Ketones Negative Urine Occult Blood 250 H Urine Nitrite Positive H Urine Bilirubin Negative Urine Urobilinogen Normal Ur Leukocyte Esterase 500 H Urine RBC 10-25 SEEN Urine WBC >100 SEEN Ur Squamous Epith Cells 0-5 SEEN Urine Bacteria 3+ Urine Mucus 0 SEEN Radiography Diagnostic Testing: Clinical Impression(s) from Imaging Studies Abdomen/Pelvis CT 02/14/23 13:22 IMPRESSION: Small region of decreased cortical enhancement in the left kidney, concerning for focal pyelonephritis. Left greater than right perinephric edema or inflammation status post ureteral stent placement. No hydronephrosis. Decreased size of right ovarian cyst. Electronically Signed: Court Joy MD at 14:24 EDT , Chest X-Ray 02/14/23 13:25 IMPRESSION: Mild left basilar atelectasis. Electronically Signed: Court Joy MD at 13:42 EDT , Discharge Plan Triage Chief Complaint: Fever ED Provider: Anthony Burt Dx/Rx/DC Orders Primary Care Provider: Didi Bennett
[2023-02-14 13:30] LABS: Absolute Lymphocyte Count 1.22 X10^3/uL (0.83-4.51); Absolute Neutrophil Count 15.6 X10^3/uL (2.0-7.7); Basophil% 0.5 % (0-1); Eosinophil# 0.01 X10^3/uL; Eosinophils% 0.1 % (0-5); Hematocrit 44.3 % (37-47); Lymphocyte # 1.22 X10^3/ul (0.83-4.51); Lymphocyte % 6.5 % (19-41); Mean Corp Hgb Conc 31.6 g/dL (32-36); Mean Corpuscular Hgb 26.6 pg (27.0-32.0); Mean Corpuscular Volume 84.2 fL (81-99); Mean Platelet Vol. 8.7 fl (6.2-12.0); Monocyte# 1.64 X10^3/uL; Monocyte% 8.8 % (0-10); NRBC Flagged by Analyzer 0 % (0-5); Neutrophil # 15.64 X10^3/uL (2.7-7.7); Neutrophil % 83.5 % (47-70); POSITIVE DIFFERENTIAL YES; Platelet Count 264 K/mm3 (150-450); RBC Distribution Width CV 13.7 % (11.6-14.6); RBC Distribution Width SD 41.9 fl (35.1-43.9); Red Blood Count 5.26 M/mm3 (4.2-5.4); White Blood Count 18.7 K/mm3 (4.4-11.0)
[2023-02-14] MEDS: Acetaminophen 500 MG Tablet 1000 MG PO (13:36)
[2023-02-14 13:37] LABS: Differential Indicated SCAN CRITERIA MET
[2023-02-14] MEDS: 0.9% Normal Saline (1000mL) 1,000 ML 999 ML IV ×2 (13:37→15:12)
[2023-02-14] MEDS: fentaNYL 100 MCG/2 ML Ampul 25 MCG IV (13:37)
[2023-02-14] MEDS: Ondansetron 4 MG/2 ML Vial IV (13:38)
[2023-02-14 13:44] LABS: Partial Thromboplast Time 26.3 Seconds (24.1-36.2); Prothrombin Time (Protime)PT. 13.5 SECONDS (11.7-14.9)
[2023-02-14 13:53] LABS: Mucous, Urine 0 SEEN /hpf (<or=2+)
[2023-02-14 14:00] LABS: Color, Urine Yellow (Yellow); Glucose, Dipstick Normal (Normal); Ketone-Dipstick Negative (Negative); Leukocyte Esterase-Dipstick 500 /ul (Negative); Nitrite-Dipstick Positive (Negative); Occult Blood-Urine 250 /ul (Negative); Protein-Dipstick 100 mg/dl (Negative); Specific Gravity, Urine 1.015 (1.002-1.030); Urine Bilirubin Dipstick Negative (Negative); Urine Clarity Sl. Cloudy (Clear); Urine Urobilinogen Normal (Normal)
[2023-02-14 14:02] LABS: Differential Comment SCANNED
[2023-02-14 14:11] LABS: Lactic Acid 1.4 mmol/L (0.4-1.9)
[2023-02-14 14:12] LABS: Red Blood Cells-Urine 10-25 SEEN /hpf (0-5); White Blood Cells >100 SEEN /hpf (0-5)
[2023-02-14 14:13] LABS: Bacteria 3+ /hpf (None Seen); Squamous Epithelial Cells - UA 0-5 SEEN /hpf (5-10)
[2023-02-14 14:19] LABS: ALB/GLOB Ratio 0.9 RATIO (0.9-2.4); AST(SGOT) 45 U/L (15-37); Alanine Aminotransfer ALT/SGPT 95 U/L (13-56); Albumin, Serum 3.5 g/dL (3.2-5.0); Alkaline Phosphatase 85 U/L (45-117); Anion Gap 5 (5-15); BUN 14 mg/dL (7-18); BUN/Creat Ratio 14.5 RATIO (10-20); Calcium,Total 8.8 mg/dL (8.5-10.1); Chloride 106 mmol/L (98-107); Creatinine, Serum 0.97 mg/dL (0.55-1.02); EST Glomerular Filtration Rate 70 mL/min (>60); Est Glom Filt Rate - Afr Amer 85 mL/min (>60); Globulin 4.1 g/dL (2.2-4.2); Glucose 118 mg/dL (74-106); Protein, Total 7.6 g/dL (6.4-8.2); Sodium Level 137 mmol/L (136-145); Troponin-I HS 3 pg/mL (3.0-54.0)
--- NOTE | 2023-02-14 15:06 | HP.PCM.HOS_ITS ---
HPI - General HPI Narrative WJ JOHNSON, is a 33 F who presents [facility] Medical History Anxiety Back pain Bladder disease Dietary restriction Easy bruising Endometriosis Fatty liver Gastric reflux Gross hematuria History of Crohn's disease History of edema History of GI bleed History of pain when walking Hx of Lyme disease Injury of head and neck Leg cramps Migraine headache Non-smoker Shortness of breath on exertion Syncope Wears glasses Home Medications duloxetine 30 mg capsule,delayed release 30 mg PO DAILY 12/21/22 [History Last Taken Unknown] omeprazole 20 mg tablet,delayed release 20 mg PO DAILY PRN GERD 12/21/22 [History Last Taken Unknown] cephalexin 500 mg capsule 500 mg PO Q12 post-operative 3 days #6 CAPSULES 02/07/23 [Rx Last Taken Unknown] ondansetron HCl 8 mg tablet 8 mg PO Q8H PRN PRN Nausea 7 days #20 TABLETS 02/07/23 [Rx Last Taken Unknown] oxycodone-acetaminophen 5 mg-325 mg tablet (Percocet) 1 tab PO Q8H PRN pain 5 days #15 tabs 02/07/23 [Rx Last Taken Unknown] phenazopyridine 200 mg tablet (Pyridium) 200 mg PO TID PRN PRN Bladder Spasms 7 days #30 tabs 02/07/23 [Rx Last Taken Unknown] Allergy/AdvReac Type Severity Reaction Status Date / Time succinylcholine Allergy Unknown Other Verified 02/14/23 12:07 adhesive tape AdvReac Rash Verified 02/14/23 12:07 Surgical History History of esophagogastroduodenoscopy (EGD) History of removal of Port-a-Cath History of stapedectomy History of surgery Hx of colonoscopy Hx of local excision of skin lesion Hx of oral surgery Social History Smoking Status: Never smoker Vital Signs Vital Signs Vital Signs: 02/14/23 12:05 02/14/23 12:19 02/14/23 12:24 Temperature 102.9 F H 98.5 F Temperature Source Oral Temporal Pulse Rate 143 H 128 H Respiratory Rate 18 18 Respiratory Effort Normal Non-Labored Respiratory Pattern Normal Blood Pressure 144/90 H 132/75 H Blood Pressure Mean 108 94 Pulse Ox 95 94 Oxygen Delivery Method Room Air Room Air 02/14/23 13:29 02/14/23 13:29 02/14/23 14:07 Temperature 102.3 F H 99.8 F H Temperature Source Oral Oral Pulse Rate 117 H Respiratory Rate 19 H Respiratory Effort Respiratory Pattern Blood Pressure 134/71 H Blood Pressure Mean 92 Pulse Ox 92 Oxygen Delivery Method Room Air Room Air Weight Weight: 210 lb Body Mass Index (BMI) 37.2 Results Lab / Micro Data 02/14/23 00:21 02/14/23 13:19 Labs: Laboratory Results - last 24 hr 02/14/23 00:21: WBC 18.7 H, RBC 5.26, Hgb 14.0, Hct 44.3, MCV 84.2, MCH 26.6 L, MCHC 31.6 L, RDW Std Deviation 41.9, RDW Coeff of Anita 13.7, Plt Count 264, MPV 8.7, Immature Gran % (Auto) 0.600, Neut % (Auto) 83.5 H, Lymph % (Auto) 6.5 L, [place] % (Auto) 8.8, Eos % (Auto) 0.1, Baso % (Auto) 0.5, Absolute Neuts (auto) 15.6 H, Absolute Lymphs (auto) 1.22, Nucleated RBC % 0, Differential Comment SCANNED, Diff Path Review September02/14/23 13:19: PT 13.5, INR 1.0, APTT 26.3, Sodium 137, Potassium 4.0, Chloride 106, Carbon Dioxide 26.0, Anion Gap 5, BUN 14, Creatinine 0.97, Estim Creat Clear Calc 67.60, Est GFR (MDRD) Af Amer 85, Est GFR (MDRD) Non-Af 70, BUN/Creatinine Ratio 14.5, Glucose 118 H, Lactic Acid 1.4, Calcium 8.8, Total Bilirubin 1.00, AST 45 H, ALT 95 H, Alkaline Phosphatase 85, Troponin I High Sens 3, Total Protein 7.6, Albumin 3.5, Globulin 4.1, Albumin/Globulin Ratio 0.9 02/14/23 13:45: Urine Color Yellow, Urine Clarity Sl. Cloudy, Urine pH 6.0, Ur Specific [place] 1.015, Urine Protein 100 H, Urine Glucose (UA) Normal, Urine Ketones Negative, Urine Occult Blood 250 H, Urine Nitrite Positive H, Urine Bilirubin Negative, Urine Urobilinogen Normal, Ur Leukocyte Esterase 500 H, Urine RBC 10-25 SEEN, Urine WBC >100 SEEN, Ur Squamous Epith Cells 0-5 SEEN, Urine Bacteria 3+, Urine Mucus 0 SEEN Radiology Impression Abdomen/Pelvis CT 02/14/23 13:22 IMPRESSION: Small region of decreased cortical enhancement in the left kidney, concerning for focal pyelonephritis. Left greater than right perinephric edema or inflammation status post ureteral stent placement. No hydronephrosis. Decreased size of right ovarian cyst. Electronically Signed: Court Joy MD at 14:24 EDT , Chest X-Ray 02/14/23 13:25 IMPRESSION: Mild left basilar atelectasis. Electronically Signed: Court oJy MD at 13:42 EDT ,
[2023-02-14] MEDS: Ceftriaxone 1 GM/50 ML BAG IV (15:12)
--- NOTE | 2023-02-14 15:25 | PN.HOSP_ITS ---
Subjective Subjective 33-year-old female presents to the hospital with significant abdominal pain and fever that worsened last night. She states that about a week ago she had cystoscopy with bilateral ureteral stents placed secondary to gross hematuria. She was discharged on Keflex at that time but now presents with what appears to be a pyelonephritis. She is being admitted by urology however they requested assistance with medical management secondary to her sepsis and borderline low oxygen, she is sitting currently at around 90% on room air and she denies a history of asthma or other respiratory illnesses. Objective Data Objective Data Vital Signs: Vital Signs Temp Pulse Resp BP Pulse Ox O2 Del Method 99.8 F H 117 H 19 H 134/71 H 92 Room Air 02/14/23 14:07 02/14/23 14:07 02/14/23 14:07 02/14/23 14:07 02/14/23 14:07 02/14/23 14:07 Oxygen Delivery Method Room Air Weight: 210 lb Body Mass Index (BMI) 37.2 Intake & Output: Intake and Output for Last 24 Hours 02/13/23 02/14/23 02/15/23 03:59 03:59 03:59 Intake Total 1000 / 1000 Balance 1000 / 1000 Lab / Micro Data 02/14/23 00:21 02/14/23 13:19 Labs: Laboratory Results - last 24 hr 02/14/23 00:21: WBC 18.7 H, RBC 5.26, Hgb 14.0, Hct 44.3, MCV 84.2, MCH 26.6 L, MCHC 31.6 L, RDW Std Deviation 41.9, RDW Coeff of Anita 13.7, Plt Count 264, MPV 8.7, Immature Gran % (Auto) 0.600, Neut % (Auto) 83.5 H, Lymph % (Auto) 6.5 L, [place] % (Auto) 8.8, Eos % (Auto) 0.1, Baso % (Auto) 0.5, Absolute Neuts (auto) 15.6 H, Absolute Lymphs (auto) 1.22, Nucleated RBC % 0, Differential Comment SCANNED, Diff Path Review September02/14/23 13:19: PT 13.5, INR 1.0, APTT 26.3, Sodium 137, Potassium 4.0, Chloride 106, Carbon Dioxide 26.0, Anion Gap 5, BUN 14, Creatinine 0.97, Estim Creat Clear Calc 67.60, Est GFR (MDRD) Af Amer 85, Est GFR (MDRD) Non-Af 70, BUN/Creatinine Ratio 14.5, Glucose 118 H, Lactic Acid 1.4, Calcium 8.8, Total Bilirubin 1.00, AST 45 H, ALT 95 H, Alkaline Phosphatase 85, Troponin I High Sens 3, Total Protein 7.6, Albumin 3.5, Globulin 4.1, Albumin/Globulin Ratio 0.9 02/14/23 13:45: Urine Color Yellow, Urine Clarity Sl. Cloudy, Urine pH 6.0, Ur Specific [place] 1.015, Urine Protein 100 H, Urine Glucose (UA) Normal, Urine Ketones Negative, Urine Occult Blood 250 H, Urine Nitrite Positive H, Urine Bilirubin Negative, Urine Urobilinogen Normal, Ur Leukocyte Esterase 500 H, Urine RBC 10-25 SEEN, Urine WBC >100 SEEN, Ur Squamous Epith Cells 0-5 SEEN, Urine Bacteria 3+, Urine Mucus 0 SEEN Radiography Diagnostic Testing: Radiology Impression Abdomen/Pelvis CT 02/14/23 13:22 IMPRESSION: Small region of decreased cortical enhancement in the left kidney, concerning for focal pyelonephritis. Left greater than right perinephric edema or inflammation status post ureteral stent placement. No hydronephrosis. Decreased size of right ovarian cyst. Electronically Signed: Court Joy MD at 14:24 EDT , Chest X-Ray 02/14/23 13:25 IMPRESSION: Mild left basilar atelectasis. Electronically Signed: Court Joy MD at 13:42 EDT , Physical Exam Narrative General: Alert, Oriented x3, Cooperative, No apparent distress HEENT: Atraumatic, PERRLA, EOMI, Normocephalic Oral: Dry mucosa Neck: Supple, No JVD Lungs: Diminished with fine basilar crackles, Normal air movement, No rhonchi, No wheeze, No rales Cardiovascular: Tachycardic, Regular Rhythm, Normal S1, Normal S2, No murmurs Abdomen: Soft, moderate tender to palpation bilateral flanks, Non-Distended, No Hepato-splenomegaly Extremities: No edema, Capillary Refill Less than 3 Seconds Skin: No rashes, No breakdown Musculoskeletal: No Tenderness to Palpation of Joints or Extremities Neurological: Cranial nerves II-XII grossly intact, Motor Exam 5/5 strength throughout, Sensory exam intact to light touch and pain Psych/Mental Status: Normal Affect, Appropriate Assessment & Plan Assessment/Plan (1) Pyelonephritis: PLAN: Plan 1. Sepsis from UTI with pyelonephritis after cystoscopy with bilateral ureteral stents ? Continue with IV fluids and antibiotics ? Blood culture and urine cultures are pending ? I do believe that currently her low oxygen is due to atelectasis, she states that it hurts to breathe or when she tries to take a deep breath. When she gets to the floor will recommend incentive spirometry 2. Anxiety/depression ? Stable ? Can continue with her home medications 3. GERD ? Stable ? Continue with PPI Charges/Coding Visit Charges Inpatient E&M: 21019 Subs Hosp L2
[2023-02-14] MEDS: Ciprofloxacin 400 MG/200 ML BAG 200 MG IV ×2 (15:41→21:06)
--- NOTE | 2023-02-14 17:20 | PCM.HP.STD ---
HPI - General General Date of Admission: 02/14/23 Date of Service: 02/14/23 Chief Complaint: Fever and flank pain HPI Narrative JW JOHNSON, is a 33 F who underwent a cystoscopy with bilateral ureteral stent insertion 1 week ago for evaluation of gross hematuria. She was having flank pain at home with minimal hematuria and no other significant symptoms until last night when she spiked a fever over 102. When she called the office this morning we sent her into the emergency room for evaluation and management. She denies any nausea, vomiting, but has been having fever and chills. There is some mild dysuria that she says has been improving since she has been into the emergency room. She reports that she has been eating less in the last couple of days but is taking fluids okay. There has been minimal hematuria. There has been bilateral flank pain since the ureteral stents were inserted. She denies symptoms of upper respiratory infection aside from some pain with deep inspiration. We did discuss her using an incentive spirometer which will be ordered to bedside. [facility] Medical History Anxiety Back pain Bladder disease Dietary restriction Easy bruising Endometriosis Fatty liver Gastric reflux Gross hematuria History of Crohn's disease History of edema History of GI bleed History of pain when walking Hx of Lyme disease Injury of head and neck Leg cramps Migraine headache Non-smoker Shortness of breath on exertion Syncope Wears glasses Home Medications duloxetine 30 mg capsule,delayed release 30 mg PO DAILY 12/21/22 [History Last Taken Unknown] omeprazole 20 mg tablet,delayed release 20 mg PO DAILY PRN GERD 12/21/22 [History Last Taken Unknown] ondansetron HCl 8 mg tablet 8 mg PO Q8H PRN PRN Nausea 7 days #20 TABLETS 02/07/23 [Rx Last Taken 02/13/23] oxycodone-acetaminophen 5 mg-325 mg tablet (Percocet) 1 tab PO Q8H PRN pain 5 days #15 tabs 02/07/23 [Rx Last Taken 02/13/23] phenazopyridine 200 mg tablet (Pyridium) 200 mg PO TID PRN PRN Bladder Spasms 7 days #30 tabs 02/07/23 [Rx Last Taken 02/13/23] Allergy/AdvReac Type Severity Reaction Status Date / Time succinylcholine Allergy Unknown Other Verified 02/14/23 12:07 adhesive tape AdvReac Rash Verified 02/14/23 12:07 Surgical History History of esophagogastroduodenoscopy (EGD) History of removal of Port-a-Cath History of stapedectomy History of surgery Hx of colonoscopy Hx of local excision of skin lesion Hx of oral surgery Social History Smoking Status: Never smoker ROS Constitutional Constitutional: Reports chills and fever(s); Denies excessive sweating, headache(s) or weakness Eyes Eyes: Reports systems reviewed and no addt'l complaints, except as documented ENT HEENT: Reports systems reviewed and no addt'l complaints, except as documented Cardiovascular Cardiovascular: Denies chest pain, dizziness or dyspnea Respiratory/Chest Respiratory/Chest: Denies chest congestion, chest tightness, cough or dyspnea Gastrointestinal Gastrointestinal: Denies constipation, diarrhea, nausea or vomiting Genitourinary Genitourinary: Reports dysuria, flank pain, hematuria, low back pain, urinary frequency and urinary urgency; Denies urinary incontinence Musculoskeletal Musculoskeletal: Reports systems reviewed and no addt'l complaints, except as documented Integumentary Integumentary: Reports systems reviewed and no addt'l complaints, except as documented Neurologic Neurologic: Reports systems reviewed and no addt'l complaints, except as documented Psychiatric Psychiatric: Reports systems reviewed and no addt'l complaints, except as documented Endocrine Endocrinology: Reports systems reviewed and no addt'l complaints, except as documented Hematologic/Lymphatic Hematologic/Lymphatic: Reports systems reviewed and no addt'l complaints, except as documented Allergic/Immunologic Allergic/Immunologic: Reports systems reviewed and no addt'l complaints, except as documented Vital Signs Vital Signs Vital Signs: 02/14/23 12:05 02/14/23 12:19 02/14/23 12:24 Temperature 102.9 F H 98.5 F Temperature Source Oral Temporal Pulse Rate 143 H 128 H Respiratory Rate 18 18 Respiratory Effort Normal Non-Labored Respiratory Pattern Normal Blood Pressure 144/90 H 132/75 H Blood Pressure Mean 108 94 Pulse Ox 95 94 Oxygen Delivery Method Room Air Room Air 02/14/23 13:29 02/14/23 13:29 02/14/23 14:07 Temperature 102.3 F H 99.8 F H Temperature Source Oral Oral Pulse Rate 117 H Respiratory Rate 19 H Respiratory Effort Respiratory Pattern Blood Pressure 134/71 H Blood Pressure Mean 92 Pulse Ox 92 Oxygen Delivery Method Room Air Room Air 02/14/23 16:39 Temperature 99.8 F H Temperature Source Pulse Rate 113 H Respiratory Rate 18 Respiratory Effort Respiratory Pattern Blood Pressure 132/76 H Blood Pressure Mean 94 Pulse Ox 92 Oxygen Delivery Method Weight Weight: 95.254 kg Body Mass Index (BMI) 37.2 Physical Exam Const alert, oriented x3 and no apparent distress General Appearance: cooperative and comfortable HEENT normocephalic, head/scalp atraumatic, hearing grossly normal bilaterally, external ears normal and external nose normal Eyes General Eye: normal appearance of both eyes Neck supple General: normal visual inspection and trachea midline Chest inspection of chest normal Chest: symmetrical chest wall rise Resp normal respiratory effort, normal air movement and no retractions Cardio Rate: tachycardic GI soft to palpation, non-tender and non-distended Bladder / Kidney Exam: CVA tenderness bilateral Back/Spine General Back: CVA tenderness bilateral Extremity normal to inspection Skin no rashes or lesions noted, no wounds, skin turgor normal, no jaundice, no petechiae and no mottling Neuro oriented x3, CN's II-XII intact bilaterally and moves all extremities Psych mental status grossly normal, thought process normal and cooperative Results Lab / Micro Data 02/14/23 00:21 02/14/23 13:19 Labs: Laboratory Results - last 24 hr 02/14/23 00:21: WBC 18.7 H, RBC 5.26, Hgb 14.0, Hct 44.3, MCV 84.2, MCH 26.6 L, MCHC 31.6 L, RDW Std Deviation 41.9, RDW Coeff of Anita 13.7, Plt Count 264, MPV 8.7, Immature Gran % (Auto) 0.600, Neut % (Auto) 83.5 H, Lymph % (Auto) 6.5 L, [place] % (Auto) 8.8, Eos % (Auto) 0.1, Baso % (Auto) 0.5, Absolute Neuts (auto) 15.6 H, Absolute Lymphs (auto) 1.22, Nucleated RBC % 0, Differential Comment SCANNED, Diff Path Review September02/14/23 13:19: PT 13.5, INR 1.0, APTT 26.3, Sodium 137, Potassium 4.0, Chloride 106, Carbon Dioxide 26.0, Anion Gap 5, BUN 14, Creatinine 0.97, Estim Creat Clear Calc 67.60, Est GFR (MDRD) Af Amer 85, Est GFR (MDRD) Non-Af 70, BUN/Creatinine Ratio 14.5, Glucose 118 H, Lactic Acid 1.4, Calcium 8.8, Total Bilirubin 1.00, AST 45 H, ALT 95 H, Alkaline Phosphatase 85, Troponin I High Sens 3, Total Protein 7.6, Albumin 3.5, Globulin 4.1, Albumin/Globulin Ratio 0.9 02/14/23 13:45: Urine Color Yellow, Urine Clarity Sl. Cloudy, Urine pH 6.0, Ur Specific [place] 1.015, Urine Protein 100 H, Urine Glucose (UA) Normal, Urine Ketones Negative, Urine Occult Blood 250 H, Urine Nitrite Positive H, Urine Bilirubin Negative, Urine Urobilinogen Normal, Ur Leukocyte Esterase 500 H, Urine RBC 10-25 SEEN, Urine WBC >100 SEEN, Ur Squamous Epith Cells 0-5 SEEN, Urine Bacteria 3+, Urine Mucus 0 SEEN Micro: Microbiology 02/14/23 15:40 Nasal Secretion SARS-CoV-2 & FLU Antigen (Rapid) - Final Radiology Impression Abdomen/Pelvis CT 02/14/23 13:22 IMPRESSION: Small region of decreased cortical enhancement in the left kidney, concerning for focal pyelonephritis. Left greater than right perinephric edema or inflammation status post ureteral stent placement. No hydronephrosis. Decreased size of right ovarian cyst. Electronically Signed: Court Joy MD at 14:24 EDT , Chest X-Ray 02/14/23 13:25 IMPRESSION: Mild left basilar atelectasis. Electronically Signed: Court Joy MD at 13:42 EDT , Assessment & Plan Assessment/Plan (1) Urinary tract infection: (2) Sepsis: PLAN: Plan antibiotics and await culture results fluids and supportive care incentive spirometer, increase pulmonary toilet if no improvement repeat labs in the am appreciate medicine following
[2023-02-14] MEDS: Acetaminophen 325 MG Tablet 650 MG PO (18:21)
[2023-02-14] MEDS: Lactated Ringers 1,000 ML 150 ML IV (18:21)
[2023-02-14] MEDS: Docusate Sodium 100 MG Capsule PO (21:16)
[2023-02-14] MEDS: Enoxaparin 40 MG/0.4 ML Syringe SC (21:25)
[2023-02-15] VITALS (10 sets, daily range): BP systolic 117–137; BP diastolic 58–75; PULSE 95–99; RESP 15–18; TEMP 36.5–38.5; O2SAT 92–96
[2023-02-15] MEDS: Lactated Ringers 1,000 ML 150 ML IV ×3 (01:22→16:20)
[2023-02-15] MEDS: Acetaminophen 325 MG Tablet 650 MG PO ×2 (03:54→21:11)
[2023-02-15] MEDS: oxyCODONE 5 MG Tablet PO ×2 (03:54→16:28)
[2023-02-15 06:14] LABS: Absolute Lymphocyte Count 1.47 X10^3/uL (0.83-4.51); Absolute Neutrophil Count 10.7 X10^3/uL (2.0-7.7); Basophil# 0.06 X10^3/uL; Basophil% 0.4 % (0-1); Eosinophils% 0.7 % (0-5); Hematocrit 36.4 % (37-47); Hemoglobin 11.6 g/dL (12.0-15.0); Lymphocyte # 1.47 X10^3/ul (0.83-4.51); Lymphocyte % 10.8 % (19-41); Mean Corp Hgb Conc 31.9 g/dL (32-36); Mean Corpuscular Hgb 27.4 pg (27.0-32.0); Mean Corpuscular Volume 85.8 fL (81-99); Mean Platelet Vol. 9.1 fl (6.2-12.0); Monocyte# 1.21 X10^3/uL; Monocyte% 8.9 % (0-10); NRBC Flagged by Analyzer 0 % (0-5); Neutrophil # 10.72 X10^3/uL (2.7-7.7); Neutrophil % 78.5 % (47-70); Platelet Count 202 K/mm3 (150-450); RBC Distribution Width CV 14.1 % (11.6-14.6); RBC Distribution Width SD 43.8 fl (35.1-43.9); Red Blood Count 4.24 M/mm3 (4.2-5.4); White Blood Count 13.7 K/mm3 (4.4-11.0)
[2023-02-15 06:42] LABS: Anion Gap 0 (5-15); BUN 9 mg/dL (7-18); Calcium,Total 8.3 mg/dL (8.5-10.1); Chloride 111 mmol/L (98-107); Creatinine, Serum 0.69 mg/dL (0.55-1.02); EST Glomerular Filtration Rate 103 mL/min (>60); Est Glom Filt Rate - Afr Amer 125 mL/min (>60); Estimated Creatinine Clearance 95.03 ml/min; Glucose 115 mg/dL (74-106); Potassium 3.8 mmol/L (3.5-5.1); Sodium Level 138 mmol/L (136-145)
--- NOTE | 2023-02-15 07:40 | PN.HOSP_ITS ---
Subjective Subjective Feeling better, still with general myalgias and bilateral flank pains. Objective Data Objective Data Vital Signs: Vital Signs Temp Pulse Resp BP Pulse Ox O2 Del Method 37.5 C H 95 15 117/58 L 92 Room Air 02/15/23 05:37 02/15/23 05:37 02/15/23 05:37 02/15/23 05:37 02/15/23 05:45 02/15/23 05:45 Oxygen Delivery Method Room Air Weight: 96.162 kg Body Mass Index (BMI) 37.5 Intake & Output: Intake and Output for Last 24 Hours 02/13/23 02/14/23 02/15/23 23:59 23:59 23:59 Intake Total 2450 / 2650 1400 / 1400 Balance 2450 / 2650 1400 / 1400 Lab / Micro Data 02/15/23 05:48 02/15/23 05:48 Labs: Laboratory Results - last 24 hr 02/14/23 00:21: WBC 18.7 H, RBC 5.26, Hgb 14.0, Hct 44.3, MCV 84.2, MCH 26.6 L, MCHC 31.6 L, RDW Std Deviation 41.9, RDW Coeff of Anita 13.7, Plt Count 264, MPV 8.7, Immature Gran % (Auto) 0.600, Neut % (Auto) 83.5 H, Lymph % (Auto) 6.5 L, [place] % (Auto) 8.8, Eos % (Auto) 0.1, Baso % (Auto) 0.5, Absolute Neuts (auto) 15.6 H, Absolute Lymphs (auto) 1.22, Nucleated RBC % 0, Differential Comment SCANNED, Diff Path Review September02/14/23 13:19: PT 13.5, INR 1.0, APTT 26.3, Sodium 137, Potassium 4.0, Chloride 106, Carbon Dioxide 26.0, Anion Gap 5, BUN 14, Creatinine 0.97, Estim Creat Clear Calc 67.60, Est GFR (MDRD) Af Amer 85, Est GFR (MDRD) Non-Af 70, BUN/Creatinine Ratio 14.5, Glucose 118 H, Lactic Acid 1.4, Calcium 8.8, Total Bilirubin 1.00, AST 45 H, ALT 95 H, Alkaline Phosphatase 85, Troponin I High Sens 3, Total Protein 7.6, Albumin 3.5, Globulin 4.1, Albumin/Globulin Ratio 0.9 02/14/23 13:45: Urine Color Yellow, Urine Clarity Sl. Cloudy, Urine pH 6.0, Ur Specific [place] 1.015, Urine Protein 100 H, Urine Glucose (UA) Normal, Urine Ketones Negative, Urine Occult Blood 250 H, Urine Nitrite Positive H, Urine Bilirubin Negative, Urine Urobilinogen Normal, Ur Leukocyte Esterase 500 H, Urine RBC 10-25 SEEN, Urine WBC >100 SEEN, Ur Squamous Epith Cells 0-5 SEEN, Urine Bacteria 3+, Urine Mucus 0 SEEN 02/15/23 05:48: WBC 13.7 H, RBC 4.24, Hgb 11.6 L, Hct 36.4 L, MCV 85.8, MCH 27.4, MCHC 31.9 L, RDW Std Deviation 43.8, RDW Coeff of Anita 14.1, Plt Count 202, MPV 9.1, Immature Gran % (Auto) 0.700, Neut % (Auto) 78.5 H, Lymph % (Auto) 10.8 L, [place] % (Auto) 8.9, Eos % (Auto) 0.7, Baso % (Auto) 0.4, Absolute Neuts (auto) 10.7 H, Absolute Lymphs (auto) 1.47, Nucleated RBC % 0, Sodium 138, Potassium 3.8, Chloride 111 H, Carbon Dioxide 27.0, Anion Gap 0 L, BUN 9, Creatinine 0.69, Estim Creat Clear Calc 95.03, Est GFR (MDRD) Af Amer 125, Est GFR (MDRD) Non-Af 103, BUN/Creatinine Ratio 13.0, Glucose 115 H, Calcium 8.3 L Micro: Microbiology 02/14/23 15:40 Nasal Secretion SARS-CoV-2 & FLU Antigen (Rapid) - Final Radiography Diagnostic Testing: Radiology Impression Abdomen/Pelvis CT 02/14/23 13:22 IMPRESSION: Small region of decreased cortical enhancement in the left kidney, concerning for focal pyelonephritis. Left greater than right perinephric edema or inflammation status post ureteral stent placement. No hydronephrosis. Decreased size of right ovarian cyst. Electronically Signed: Court Joy MD at 14:24 EDT , Chest X-Ray 02/14/23 13:25 IMPRESSION: Mild left basilar atelectasis. Electronically Signed: Court Joy MD at 13:42 EDT , Physical Exam Const alert and no apparent distress Resp normal respiratory effort, no retractions, no use of accessory muscles and clear to auscultation bilaterally Cardio regular rate, regular rhythm, S1 normal heart sound and S2 normal heart sound GI normal to inspection, nondistended, normoactive bowel sounds GI Narrative: bilateral CVA tenderness. Neuro Sensorium / Orientation: awake and alert Assessment & Plan Assessment/Plan (1) Sepsis: QUALIFIERS: Sepsis acute organ dysfunction status: unspecified Sepsis type: sepsis due to unspecified organism Qualified Code(s): A41.9 - Sepsis, unspecified organism PLAN: POA QSOFA 0, SIRS 3/4 (temp 39.1, HR 125, WBC 18.7)\ 2/2 pyelonephritis supportive mgmt BCx pending. UCx showing presumptive E. coli. (2) Pyelonephritis: PLAN: Bilateral on Ciprofloxacin recent bilateral stent placement on 02/07. PLAN: Plan Chronic conditions: * anxiety/depression: continue duloxetine * GERD: continue PPI VTE prophylaxis: LMWH. Charges/Coding Visit Charges Inpatient E&M: 62153 Subs Hosp L2
[2023-02-15] MEDS: Docusate Sodium 100 MG Capsule PO (07:59)
[2023-02-15] MEDS: Enoxaparin 40 MG/0.4 ML Syringe SC (07:59)
[2023-02-15] MEDS: Phenazopyridine 95 MG Tablet 190 MG PO ×2 (07:59→16:30)
[2023-02-15] MEDS: Ciprofloxacin 400 MG/200 ML BAG 200 MG IV ×2 (10:00→21:10)
--- NOTE | 2023-02-15 13:16 | CHAPLAIN ---
Type of Pastoral Visit _x__ Initial Visit ___ Follow-up Visit ___ On-call Visit ___ General Patient Visit ___ Spiritual Assessment ___ Family Conference ___ Bereavement ___ Rapid Response ___ Code Blue ___ Other (describe below) Pastoral Care Referral From _x__ Patient ___ Family ___ Nurse ___ Physician ___ Photovoltaic Panel Installer ___ Polygraph Operator ___ Other (describe below) Sacrament/Intervention _x__ Active listening ___ Anointing ___ Congregational ___ Bereavement ___ Communion ___ Nory exploration ___ ___ Life review ___ Prayer ___ Reconciliation ___ Sacrament of Sick _x__ Supportive presence ___ Wedding ___ Other (describe below) Pastoral Comments patient reports feeling better since yesterday; pt has many family members in the room and states that she has no other particular needs; supportive presence and offer of ongoing support given as needed
[2023-02-15 13:25] LABS: Pathologist Review Reviewed
--- NOTE | 2023-02-15 13:55 | CASEMGMT ---
RN CM Face to Face with patient for initial transition planning/care coordination assessment. RN CM introduced self and role at [facility]. Patient lying in bed, alert and oriented, family at bedside. Patient willing to participate in assessment and is able to answer all questions appropriately. Care providers, pharmacy, and demographics verified. Patient wishes to discharge home, denies need for home health at this time. Patient states she has no further needs or concerns at this time. CM to follow for discharge planning needs that may arise. PCP: Donald Specialists: [facility] Preferred Pharmacy: [facility]; [facility] retail at discharge, Dr. Mullen at bedside and updated Insurance: [facility] Prescription Benefit: none Living Will/HPOA: none LNOK: father Living Arrangements: Patient lives alone in a first floor apartment with no steps. Patient states she is independent at home. Transportation: neighbor, friend DME/HHC: Patient denies DME in the home. No previous HHC or SNF Disposition Plan: Patient to discharge home with family support and follow-up plans in place. Monserrat HUFFMAN, RN, CM
--- NOTE | 2023-02-15 14:03 | PN.URO_ITS ---
Subjective Subjective Feeling better today. Still with intermittent chills, myalgia and flank pain. She is having intermittent dysuria. There is no nausea, vomiting or diarrhea. Objective Data Objective Data Vital Signs: Vital Signs Temp Pulse Resp BP Pulse Ox O2 Del Method 99.5 F H 95 15 117/58 L 92 Room Air 02/15/23 10:00 02/15/23 10:00 02/15/23 10:00 02/15/23 10:00 02/15/23 10:00 02/15/23 10:00 Oxygen Delivery Method Room Air Weight: 96.162 kg Body Mass Index (BMI) 37.5 Intake & Output: Intake and Output for Last 24 Hours 02/13/23 02/14/23 02/15/23 23:59 23:59 23:59 Intake Total 2450 / 2650 2897.5 / 2897.5 Balance 2450 / 2650 2897.5 / 2897.5 Lab / Micro Data 02/15/23 05:48 02/15/23 05:48 Labs: Laboratory Results - last 24 hr 02/14/23 00:21: Differential Comment SCANNED, Diff Path Review Reviewed 02/14/23 13:19: Sodium 137, Potassium 4.0, Chloride 106, Carbon Dioxide 26.0, Anion Gap 5, BUN 14, Creatinine 0.97, Estim Creat Clear Calc 67.60, Est GFR (MDRD) Af Amer 85, Est GFR (MDRD) Non-Af 70, BUN/Creatinine Ratio 14.5, Glucose 118 H, Lactic Acid 1.4, Calcium 8.8, Total Bilirubin 1.00, AST 45 H, ALT 95 H, Alkaline Phosphatase 85, Troponin I High Sens 3, Total Protein 7.6, Albumin 3.5, Globulin 4.1, Albumin/Globulin Ratio 0.9 02/14/23 13:45: Urine Color Yellow, Urine Clarity Sl. Cloudy, Urine pH 6.0, Ur Specific [place] 1.015, Urine Protein 100 H, Urine Glucose (UA) Normal, Urine Ketones Negative, Urine Occult Blood 250 H, Urine Nitrite Positive H, Urine Bilirubin Negative, Urine Urobilinogen Normal, Ur Leukocyte Esterase 500 H, Urine RBC 10-25 SEEN, Urine WBC >100 SEEN, Ur Squamous Epith Cells 0-5 SEEN, Urine Bacteria 3+, Urine Mucus 0 SEEN 02/15/23 05:48: WBC 13.7 H, RBC 4.24, Hgb 11.6 L, Hct 36.4 L, MCV 85.8, MCH 27.4, MCHC 31.9 L, RDW Std Deviation 43.8, RDW Coeff of Anita 14.1, Plt Count 202, MPV 9.1, Immature Gran % (Auto) 0.700, Neut % (Auto) 78.5 H, Lymph % (Auto) 10.8 L, [place] % (Auto) 8.9, Eos % (Auto) 0.7, Baso % (Auto) 0.4, Absolute Neuts (auto) 10.7 H, Absolute Lymphs (auto) 1.47, Nucleated RBC % 0, Sodium 138, Potassium 3 .8, Chloride 111 H, Carbon Dioxide 27.0, Anion Gap 0 L, BUN 9, Creatinine 0.69, Estim Creat Clear Calc 95.03, Est GFR (MDRD) Af Amer 125, Est GFR (MDRD) Non-Af 103, BUN/Creatinine Ratio 13.0, Glucose 115 H, Calcium 8.3 L Micro: Microbiology 02/14/23 13:45 Urine, Clean Catch Urine Culture - Preliminary Presumptive E. coli 02/14/23 15:40 Nasal Secretion SARS-CoV-2 & FLU Antigen (Rapid) - Final Radiography Diagnostic Testing: Radiology Impression Abdomen/Pelvis CT 02/14/23 13:22 IMPRESSION: Small region of decreased cortical enhancement in the left kidney, concerning for focal pyelonephritis. Left greater than right perinephric edema or inflammation status post ureteral stent placement. No hydronephrosis. Decreased size of right ovarian cyst. Electronically Signed: Court Joy MD at 14:24 EDT , Physical Exam Const alert, oriented x3 and no apparent distress HEENT normocephalic and head/scalp atraumatic Eyes conjunctivae normal General Eye: normal appearance of both eyes Neck General: normal visual inspection and trachea midline Lymph Lymphatic: no lymphedema noted Chest inspection of chest normal Resp normal respiratory effort, normal air movement and no retractions Cardio regular rate and regular rhythm GI soft to palpation, non-tender and non-distended Bladder / Kidney Exam: CVA tenderness bilateral Extremity normal to inspection Extremity Narrative: SCDs are in place Skin no rashes or lesions noted, no wounds, skin turgor normal, no jaundice, no petechiae and no mottling Neuro oriented x3, CN's II-XII intact bilaterally and moves all extremities Psych mental status grossly normal and thought process normal Assessment & Plan Assessment/Plan (1) Sepsis: QUALIFIERS: Sepsis type: sepsis due to unspecified organism Sepsis acute organ dysfunction status: unspecified Qualified Code(s): A41.9 - Sepsis, unspecified organism (2) Pyelonephritis: (3) Gross hematuria: PLAN: Plan Continue antibiotics, cultures appear to be growing presumably E. coli from the urine, blood cultures are still completely pending Continue supportive care Ambulation Discharge planning for tomorrow pending blood work and vital signs
--- NOTE | 2023-02-15 14:08 | DCINST_ITS ---
Discharge Instructions Diet Discharge Diet: No restrictions Activity Discharge Activity: Return to Normal Activity Dressing / Incision Call your doctor if you observe: Fever of 101 or Higher, Inability to urinate and Inability to have a bowel movement Follow Up Care Please Follow Up With: Kacy Mullen MD When: the office will call to make arrangements Test Results: Test results from this visit will be discussed in further detail at your follow- up appointment, if applicable. Discharge Plan Admission Admit Date/Time: 02/14/23 15:21 Attending Provider: Kacy Mullen Primary Care Provider: Didi Bennett Discharge Orders/Prescriptions Prescriptions: New ciprofloxacin HCl [ciprofloxacin HCl] 500 mg tablet 500 mg PO BID Qty: 16 0RF Continued duloxetine 30 mg capsule,delayed release(DR/EC) 30 mg PO DAILY Hold Instructions: Ordered Patient Comments: TAKE ONE CAPSULE BY MOUTH DAILY omeprazole 20 mg tablet,delayed release (DR/EC) 20 mg PO DAILY PRN (Reason: GERD) ondansetron HCl 8 mg tablet 8 mg PO Q8H PRN PRN (Reason: Nausea) 7 Days Qty: 20 0RF oxycodone-acetaminophen [Percocet] 5-325 mg tablet 1 tab PO Q8H PRN (Reason: pain) 5 Days Qty: 15 0RF phenazopyridine [Pyridium] 200 mg tablet 200 mg PO TID PRN PRN (Reason: Bladder Spasms) 7 Days Qty: 30 0RF Referrals / Follow Up: Didi Bennett PA [Primary Care Provider] - Disposition Disposition (needs filled in before D/C Order can be placed): Home, Self Care
[2023-02-16] VITALS (7 sets, daily range): BP systolic 131–146; BP diastolic 80–88; PULSE 76–92; RESP 15–18; TEMP 36.4–37.4; O2SAT 94–97
[2023-02-16] MEDS: oxyCODONE 5 MG Tablet PO ×2 (01:13→09:18)
[2023-02-16] MEDS: Lactated Ringers 1,000 ML 150 ML IV ×4 (01:15→20:58)
[2023-02-16] MEDS: Acetaminophen 325 MG Tablet 650 MG PO ×2 (05:39→20:52)
[2023-02-16 07:58] LABS: Absolute Lymphocyte Count 0.95 X10^3/uL (0.83-4.51); Absolute Neutrophil Count 5.2 X10^3/uL (2.0-7.7); Basophil# 0.03 X10^3/uL; Basophil% 0.4 % (0-1); Eosinophil# 0.13 X10^3/uL; Eosinophils% 1.9 % (0-5); Hematocrit 35.2 % (37-47); Lymphocyte # 0.95 X10^3/ul (0.83-4.51); Lymphocyte % 13.6 % (19-41); Mean Corp Hgb Conc 31.3 g/dL (32-36); Mean Corpuscular Hgb 26.9 pg (27.0-32.0); Mean Corpuscular Volume 86.1 fL (81-99); Mean Platelet Vol. 9.1 fl (6.2-12.0); Monocyte# 0.65 X10^3/uL; Monocyte% 9.3 % (0-10); NRBC Flagged by Analyzer 0 % (0-5); Neutrophil # 5.19 X10^3/uL (2.7-7.7); Neutrophil % 74.4 % (47-70); Platelet Count 173 K/mm3 (150-450); RBC Distribution Width SD 44.2 fl (35.1-43.9); Red Blood Count 4.09 M/mm3 (4.2-5.4)
[2023-02-16 08:14] LABS: Anion Gap 6 (5-15); BUN 7 mg/dL (7-18); BUN/Creat Ratio 11.3 RATIO (10-20); Calcium,Total 8.3 mg/dL (8.5-10.1); Chloride 112 mmol/L (98-107); Creatinine, Serum 0.62 mg/dL (0.55-1.02); EST Glomerular Filtration Rate 118 mL/min (>60); Est Glom Filt Rate - Afr Amer 142 mL/min (>60); Estimated Creatinine Clearance 105.76 ml/min; Glucose 98 mg/dL (74-106); Potassium 3.6 mmol/L (3.5-5.1); Sodium Level 141 mmol/L (136-145)
--- NOTE | 2023-02-16 08:59 | PCM.PN.HOSP ---
Reason for Visit Reason for Visit: Diagnoses Sepsis, unspecified organism (02/14/23) Tubulo-interstitial nephritis, not specified as acute or chronic (02/14/23) Urinary tract infection, site not specified (02/14/23) Gross hematuria (02/14/23) Subjective Subjective Fever overnight. Still complains of myalgias and weakness. Very anxious about going home where she lives by herself Objective Data Objective Data Vital Signs: Vital Signs Temp Pulse Resp BP Pulse Ox O2 Del Method 37.4 C H 86 15 131/88 H 96 Room Air 02/16/23 03:27 02/16/23 03:27 02/16/23 03:27 02/16/23 03:27 02/16/23 07:55 02/16/23 07:56 Oxygen Delivery Method Room Air Weight: 96.162 kg Body Mass Index (BMI) 37.5 Intake & Output: Intake and Output for Last 24 Hours 02/14/23 02/15/23 02/16/23 23:59 23:59 23:59 Intake Total 2450 / 2650 5600.0 / 5600.0 1050 / 1050 Balance 2450 / 2650 5600.0 / 5600.0 1050 / 1050 Lab / Micro Data 02/16/23 07:07 02/16/23 07:07 Labs: Laboratory Results - last 24 hr 02/14/23 00:21: Diff Path Review Reviewed 02/16/23 07:07: WBC 7.0 02/16/23 07:07: WBC Cancelled, Corrected WBC Cancelled, RBC 4.09 L 02/16/23 07:07: RBC Cancelled, Hgb 11.0 L 02/16/23 07:07: Hgb Cancelled, Hct 35.2 L 02/16/23 07:07: Hct Cancelled, MCV 86.1 02/16/23 07:07: MCV Cancelled, MCH 26.9 L 02/16/23 07:07: MCH Cancelled, MCHC 31.3 L 02/16/23 07:07: MCHC Cancelled, RDW Std Deviation 44.2 H 02/16/23 07:07: RDW Std Deviation Cancelled, RDW Coeff of Anita 14.0 02/16/23 07:07: RDW Coeff of Anita Cancelled, Plt Count 173 02/16/23 07:07: Plt Count Cancelled, MPV 9.1 02/16/23 07:07: MPV Cancelled, Immature Gran % (Auto) 0.400 02/16/23 07:07: Immature Gran % (Auto) Cancelled, Neut % (Auto) 74.4 H 02/16/23 07:07: Neut % (Auto) Cancelled, Lymph % (Auto) 13.6 L 02/16/23 07:07: Lymph % (Auto) Cancelled, [place] % (Auto) 9.3 02/16/23 07:07: [place] % (Auto) Cancelled, Eos % (Auto) 1.9 02/16/23 07:07: Eos % (Auto) Cancelled, Baso % (Auto) 0.4 02/16/23 07:07: Baso % (Auto) Cancelled, Absolute Neuts (auto) 5.2 02/16/23 07:07: Absolute Neuts (auto) Cancelled, Absolute Lymphs (auto) 0.95 02/16/23 07:07: Absolute Lymphs (auto) Cancelled, Total Counted Cancelled, Neutrophils % (Manual) Cancelled, Band Neutrophils % Cancelled, Lymphocytes % (Manual) Cancelled, Monocytes % (Manual) Cancelled, Eosinophils % (Manual) Cancelled, Basophils % (Manual) Cancelled, Metamyelocytes % Cancelled, Myelocytes % Cancelled, Promyelocytes % Cancelled, Blast Cells % Cancelled, Plasma Cell % (Manual) Cancelled, Other Cells % Cancelled, Nucleated RBC % 0 02/16/23 07:07: Nucleated RBC % Cancelled, Nucleated RBCs/100 WBC Cancelled, Differential Comment Cancelled, Diff Path Review Cancelled, Hypersegmented Neuts Cancelled, Atypical Lymphocytes Cancelled, Reactive Lymphocytes Cancelled, Smudge Cells Cancelled, Toxic Granulation Cancelled, Toxic Vacuolation Cancelled, Dohle Bodies Cancelled, Subhash Rods Cancelled, Platelet Estimate Cancelled, Plt Morphology Comment Cancelled, RBC Morphology Cancelled 02/16/23 07:07: RBC Morphology Cancelled, Polychromasia Cancelled, Hypochromasia Cancelled, Poikilocytosis Cancelled, Basophilic Stippling Cancelled, Anisocytosis Cancelled, Microcytosis Cancelled, Macrocytosis Cancelled, Spherocytes Cancelled, Sickle Cells Cancelled, Target Cells Cancelled, Tear Drop Cells Cancelled, Ovalocytes Cancelled, Stomatocytes Cancelled, Neri-[place] Bodies Cancelled, [place] Cells Cancelled, Bite Cells Cancelled, Crenated Cell Cancelled, Acanthocytes (Spur) Cancelled, Rouleaux Cancelled, Schistocytes Cancelled, Sodium 141, Potassium 3.6, Chloride 112 H, Carbon Dioxide 23.0, Anion Gap 6, BUN 7, Creatinine 0.62, Estim Creat Clear Calc 105.76, Est GFR (MDRD) Af Amer 142, Est GFR (MDRD) Non-Af 118, BUN/Creatinine Ratio 11.3, Glucose 98, Calcium 8.3 L Micro: Microbiology 02/14/23 13:45 Urine, Clean Catch Urine Culture - Final Presumptive E. coli 02/14/23 15:40 Nasal Secretion SARS-CoV-2 & FLU Antigen (Rapid) - Final Physical Exam Const alert and no apparent distress HEENT head/scalp atraumatic and moist oral mucous membranes Resp normal respiratory effort, no retractions, no use of accessory muscles and clear to auscultation bilaterally Cardio regular rate, regular rhythm, S1 normal heart sound and S2 normal heart sound GI normal to inspection, nondistended, normoactive bowel sounds GI Narrative: Bilateral CVA tenderness Extremity normal to inspection Assessment & Plan Assessment/Plan (1) Sepsis: QUALIFIERS: Sepsis acute organ dysfunction status: unspecified Sepsis type: sepsis due to unspecified organism Qualified Code(s): A41.9 - Sepsis, unspecified organism PLAN: POA QSOFA 0, SIRS 3/4 (temp 39.1, HR 125, WBC 18.7) 2/2 pyelonephritis supportive mgmt BCx pending. UCx showing presumptive E. coli, pansensitive. Given the serevity of her illness, recent instumentation, would recommend treatment with ciprofloxacin 500 BID through the (total of 14 days including her time here) (2) Pyelonephritis: PLAN: Bilateral on Ciprofloxacin recent bilateral stent placement on 02/07. 2/2 E. coli Antibiotic recommendations as above. PLAN: Plan Chronic conditions: anxiety/depression: continue duloxetine GERD: continue PPI VTE prophylaxis: LMWH. Medically stable for discharge. Tentative plan for discharge on the . Charges/Coding Visit Charges Inpatient E&M: 10866 Subs Hosp L2
[2023-02-16] MEDS: Ciprofloxacin 400 MG/200 ML BAG 200 MG IV ×2 (09:18→20:59)
--- NOTE | 2023-02-16 11:14 | PCM.PN.GU ---
Subjective Subjective The patient had a rough night with fever, pain and some nausea, no vomiting. She is anxious about being discharged as she lives alone. She is complaining of some left lower extremity burning pain that started last night. No shortness of breath, upper respiratory symptoms. Objective Data Objective Data Vital Signs: Vital Signs Temp Pulse Resp BP Pulse Ox O2 Del Method 97.6 F L 76 18 144/84 H 94 Room Air 02/16/23 09:20 02/16/23 09:20 02/16/23 09:20 02/16/23 09:20 02/16/23 09:20 02/16/23 09:20 Oxygen Delivery Method Room Air Weight: 96.162 kg Body Mass Index (BMI) 37.5 Intake & Output: Intake and Output for Last 24 Hours 02/14/23 02/15/23 02/16/23 23:59 23:59 23:59 Intake Total 2450 / 2650 5600.0 / 5600.0 1457.5 / 1457.5 Balance 2450 / 2650 5600.0 / 5600.0 1457.5 / 1457.5 Lab / Micro Data 02/16/23 07:07 02/16/23 07:07 Labs: Laboratory Results - last 24 hr 02/14/23 00:21: Diff Path Review Reviewed 02/16/23 07:07: WBC 7.0 02/16/23 07:07: WBC Cancelled, Corrected WBC Cancelled, RBC 4.09 L 02/16/23 07:07: RBC Cancelled, Hgb 11.0 L 02/16/23 07:07: Hgb Cancelled, Hct 35.2 L 02/16/23 07:07: Hct Cancelled, MCV 86.1 02/16/23 07:07: MCV Cancelled, MCH 26.9 L 02/16/23 07:07: MCH Cancelled, MCHC 31.3 L 02/16/23 07:07: MCHC Cancelled, RDW Std Deviation 44.2 H 02/16/23 07:07: RDW Std Deviation Cancelled, RDW Coeff of Anita 14.0 02/16/23 07:07: RDW Coeff of Anita Cancelled, Plt Count 173 02/16/23 07:07: Plt Count Cancelled, MPV 9.1 02/16/23 07:07: MPV Cancelled, Immature Gran % (Auto) 0.400 02/16/23 07:07: Immature Gran % (Auto) Cancelled, Neut % (Auto) 74.4 H 02/16/23 07:07: Neut % (Auto) Cancelled, Lymph % (Auto) 13.6 L 02/16/23 07:07: Lymph % (Auto) Cancelled, [place] % (Auto) 9.3 02/16/23 07:07: [place] % (Auto) Cancelled, Eos % (Auto) 1.9 02/16/23 07:07: Eos % (Auto) Cancelled, Baso % (Auto) 0.4 02/16/23 07:07: Baso % (Auto) Cancelled, Absolute Neuts (auto) 5.2 02/16/23 07:07: Absolute Neuts (auto) Cancelled, Absolute Lymphs (auto) 0.95 02/16/23 07:07: Absolute Lymphs (auto) Cancelled, Total Counted Cancelled, Neutrophils % (Manual) Cancelled, Band Neutrophils % Cancelled, Lymphocytes % (Manual) Cancelled, Monocytes % (Manual) Cancelled, Eosinophils % (Manual) Cancelled, Basophils % (Manual) Cancelled, Metamyelocytes % Cancelled, Myelocytes % Cancelled, Promyelocytes % Cancelled, Blast Cells % Cancelled, Plasma Cell % (Manual) Cancelled, Other Cells % Cancelled, Nucleated RBC % 0 02/16/23 07:07: Nucleated RBC % Cancelled, Nucleated RBCs/100 WBC Cancelled, Differential Comment Cancelled, Diff Path Review Cancelled, Hypersegmented Neuts Cancelled, Atypical Lymphocytes Cancelled, Reactive Lymphocytes Cancelled, Smudge Cells Cancelled, Toxic Granulation Cancelled, Toxic Vacuolation Cancelled, Dohle Bodies Cancelled, Subhash Rods Cancelled, Platelet Estimate Cancelled, Plt Morphology Comment Cancelled, RBC Morphology Cancelled 02/16/23 07:07: RBC Morphology Cancelled, Polychromasia Cancelled, Hypochromasia Cancelled, Poikilocytosis Cancelled, Basophilic Stippling Cancelled, Anisocytosis Cancelled, Microcytosis Cancelled, Macrocytosis Cancelled, Spherocytes Cancelled, Sickle Cells Cancelled, Target Cells Cancelled, Tear Drop Cells Cancelled, Ovalocytes Cancelled, Stomatocytes Cancelled, Neri-[place] Bodies Cancelled, [place] Cells Cancelled, Bite Cells Cancelled, Crenated Cell Cancelled, Acanthocytes (Spur) Cancelled, Rouleaux Cancelled, Schistocytes Cancelled, Sodium 141, Potassium 3.6, Chloride 112 H, Carbon Dioxide 23.0, Anion Gap 6, BUN 7, Creatinine 0.62, Estim Creat Clear Calc 105.76, Est GFR (MDRD) Af Amer 142, Est GFR (MDRD) Non-Af 118, BUN/Creatinine Ratio 11.3, Glucose 98, Calcium 8.3 L Micro: Microbiology 02/14/23 13:45 Urine, Clean Catch Urine Culture - Final Presumptive E. coli 02/14/23 15:40 Nasal Secretion SARS-CoV-2 & FLU Antigen (Rapid) - Final Physical Exam Const alert, oriented x3 and no apparent distress HEENT normocephalic and head/scalp atraumatic Eyes General Eye: normal appearance of both eyes Neck General: normal visual inspection Lymph Lymphatic: no lymphedema noted Chest inspection of chest normal Resp normal respiratory effort, normal air movement, no retractions and no use of accessory muscles Cardio regular rate and regular rhythm GI soft to palpation, non-tender and non-distended Narrative: Bilateral CVA tenderness on exam, no Glasgow catheter in place Extremity Extremity Narrative: SCDs are in place. The left leg is not edematous and there is no tenderness on calf palpation. Skin no rashes or lesions noted, no wounds and skin turgor normal Neuro oriented x3 and CN's II-XII intact bilaterally Psych mental status grossly normal and thought process normal Assessment & Plan Assessment/Plan (1) Pyelonephritis: (2) Sepsis: QUALIFIERS: Sepsis type: sepsis due to unspecified organism Sepsis acute organ dysfunction status: unspecified Qualified Code(s): A41.9 - Sepsis, unspecified organism PLAN: Plan Urine cultures are back, continue Cipro Blood cultures are pending She continues to be febrile today with normalization of her blood work Left lower extremity Doppler Discharge planning for tomorrow morning
--- NOTE | 2023-02-16 11:22 | VDLE_ITS ---
Reason For Study: Pain LLE Procedure LEFT This is a venous duplex using B-mode, color GSV is normal. flow and spectral Doppler. CFV is compressible, spontaneous, phasic, Exam performed portable in patient room. competent, and demonstrates normal A preliminary report was called and/or faxed augmentation. to Jesus Manuel ARREOLA. FV is compressible, spontaneous, phasic, competent and demonstrates normal augmentation. POP V is compressible, spontaneous, phasic, competent and demonstrates normal augmentation. T/P Trunk is compressible. PTV is compressible. LT PerV is compressible. VL/Venous Duplex US, Unilateral Interpretation Summary Deep veins of the left lower extremity are patent and compressible segmentally. There is no evidence of left lower extremity deep vein thrombosis. The left great saphenous vein malik ears patent and compressible segmentally. Ordering Physician: Kacy Mullen Referring Physician: Didi Bennett Performed By: Molly Avitia, JOSÉ, RVT
[2023-02-16] MEDS: Enoxaparin 40 MG/0.4 ML Syringe SC (11:34)
[2023-02-16] MEDS: Docusate Sodium 100 MG Capsule PO (20:54)
[2023-02-17 02:56] VITALS: BP 129/72; PULSE 78; RESP 18; TEMP 36.7; O2SAT 97
[2023-02-17] MEDS: Lactated Ringers 1,000 ML 150 ML IV (05:18)
[2023-02-17] MEDS: 0.9% Saline Lock 10 ML Syringe IV (05:19)
[2023-02-17] MEDS: Acetaminophen 325 MG Tablet 650 MG PO (05:24)
[2023-02-17] MEDS: Phenazopyridine 95 MG Tablet 190 MG PO (05:24)
[2023-02-17] MEDS: Ciprofloxacin 400 MG/200 ML BAG 200 MG IV (08:48)
[2023-02-17] MEDS: Enoxaparin 40 MG/0.4 ML Syringe SC (08:51)
[2023-02-17 08:55] VITALS: BP 140/96; PULSE 81; RESP 18; TEMP 36.4; O2SAT 97
--- NOTE | 2023-02-17 09:11 | PCM.PN.GU ---
Subjective Subjective No issues overnight, feeling much better this morning. Objective Data Objective Data Vital Signs: Vital Signs Temp Pulse Resp BP Pulse Ox O2 Del Method 97.6 F L 81 18 140/96 H 97 Room Air 02/17/23 08:55 02/17/23 08:55 02/17/23 08:55 02/17/23 08:55 02/17/23 08:55 02/17/23 08:55 Oxygen Delivery Method Room Air Weight: 96.162 kg Body Mass Index (BMI) 37.5 Intake & Output: Intake and Output for Last 24 Hours 02/15/23 02/16/23 02/17/23 23:59 23:59 23:59 Intake Total 5600.0 / 5600.0 3862.5 / 3862.5 997.5 / 997.5 Balance 5600.0 / 5600.0 3862.5 / 3862.5 997.5 / 997.5 Lab / Micro Data Attestation: I reviewed the patient's lab results. Lab results narrative: Lower extremity Dopplers negative for clot or abnormality 02/16/23 07:07 02/16/23 07:07 Micro: Microbiology 02/14/23 14:15 Blood Culture (Wb) - Venous Blood Culture - Preliminary No growth in 48 hours. 02/14/23 13:15 Blood Culture (Wb) - Venous Blood Culture - Preliminary No growth in 48 hours. 02/14/23 13:45 Urine, Clean Catch Urine Culture - Final Presumptive E. coli 02/14/23 15:40 Nasal Secretion SARS-CoV-2 & FLU Antigen (Rapid) - Final Physical Exam Narrative Alert and oriented x3, no acute distress Abdomen soft nontender nondistended Assessment & Plan Assessment/Plan (1) Sepsis: QUALIFIERS: Sepsis type: sepsis due to unspecified organism Sepsis acute organ dysfunction status: unspecified Qualified Code(s): A41.9 - Sepsis, unspecified organism (2) Urinary tract infection: (3) Pyelonephritis: (4) Gross hematuria: PLAN: Plan Discharge home on Cipro Plan to postpone surgical intervention with ureteroscopy by 1 week Will repeat urine culture later this week
--- NOTE | 2023-02-17 09:12 | PCM.DC.SUM ---
Providers Date of Admission: 02/14/23 Date of Discharge: 02/17/23 Primary Care Physician: SAM Bond Reason For Visit: PYELONEPHRITIS Diagnosis Discharge Diagnosis (1) Sepsis: Status: Acute Code(s): A41.9 - Sepsis, unspecified organism Qualifiers: Sepsis type: sepsis due to unspecified organism Sepsis acute organ dysfunction status: unspecified Qualified Code(s): A41.9 - Sepsis, unspecified organism (2) Urinary tract infection: Status: Acute Code(s): N39.0 - Urinary tract infection, site not specified Qualifiers: Urinary tract infection type: acute pyelonephritis Qualified Code(s): N10 - Acute pyelonephritis (3) Pyelonephritis: Status: Acute Code(s): N12 - Tubulo-interstitial nephritis, not specified as acute or chronic (4) Gross hematuria: Status: Acute Code(s): R31.0 - Gross hematuria Plan Discharge home on Cipro Plan to postpone surgical intervention with ureteroscopy by 1 week Will repeat urine culture later this week Medications at Discharge Home Medications duloxetine 30 mg capsule,delayed release 30 mg PO DAILY 12/21/22 omeprazole 20 mg tablet,delayed release 20 mg PO DAILY PRN GERD 12/21/22 ondansetron HCl 8 mg tablet 8 mg PO Q8H PRN PRN Nausea 7 days #20 TABLETS 02/07/23 oxycodone-acetaminophen 5 mg-325 mg tablet (Percocet) 1 tab PO Q8H PRN pain 5 days #15 tabs 02/07/23 phenazopyridine 200 mg tablet (Pyridium) 200 mg PO TID PRN PRN Bladder Spasms 7 days #30 tabs 02/07/23 ciprofloxacin HCl 500 mg tablet 500 mg PO BID #16 TABLETS 02/15/23 Hospital Course Operations None Procedures None Summary of Care Provided Hospital Course: Rossy was admitted with a diagnosis of acute pyelonephritis which was confirmed by urine cultures. She was treated with intravenous antibiotic administration, intravenous fluids and supportive care. She complained of left lower extremity discomfort on 02/16 and Dopplers revealed no abnormalities. She was discharged home in good condition on 02/17. Physical Exam Const alert, oriented x3 and no apparent distress HEENT normocephalic and head/scalp atraumatic Eyes General Eye: normal appearance of both eyes Neck General: normal visual inspection and trachea midline Lymph Lymphatic: no lymphedema noted Chest inspection of chest normal Resp normal respiratory effort, normal air movement and no retractions Cardio regular rate and regular rhythm GI soft to palpation, non-tender and non-distended Narrative: Mild bilateral CVA tenderness to palpation Extremity normal to inspection Skin no rashes or lesions noted, no wounds, skin turgor normal, no jaundice, no petechiae and no mottling Neuro oriented x3, CN's II-XII intact bilaterally and moves all extremities Psych mental status grossly normal Psych Narrative: She has a lot of anxiety at baseline and this has continued Weight / BMI Weight Weight: 96.162 kg Body Mass Index (BMI) 37.5 ABG / Lab / Microbiology Data 02/16/23 07:07 02/16/23 07:07 Microbiology: Microbiology 02/14/23 14:15 Blood Culture (Wb) - Venous Blood Culture - Preliminary No growth in 48 hours. 02/14/23 13:15 Blood Culture (Wb) - Venous Blood Culture - Preliminary No growth in 48 hours. 02/14/23 13:45 Urine, Clean Catch Urine Culture - Final Presumptive E. coli 02/14/23 15:40 Nasal Secretion SARS-CoV-2 & FLU Antigen (Rapid) - Final D/C Instructions Discharge Diet: No restrictions Call your doctor if you observe: Fever of 101 or Higher, Inability to urinate and Inability to have a bowel movement Please Follow Up With: Kacy Mullen MD When: the office will call to make arrangements Meaningful Use Info Meaningful Use Diagnoses (Choose all that apply): None applicable Discharge Plan Admission Admit Date/Time: 02/14/23 15:21 Attending Provider: Kacy Mullen Primary Care Provider: Didi Bennett Discharge Orders/Prescriptions Prescriptions: New ciprofloxacin HCl [ciprofloxacin HCl] 500 mg tablet 500 mg PO BID Qty: 16 0RF Continued duloxetine 30 mg capsule,delayed release(DR/EC) 30 mg PO DAILY Hold Instructions: Ordered Patient Comments: TAKE ONE CAPSULE BY MOUTH DAILY omeprazole 20 mg tablet,delayed release (DR/EC) 20 mg PO DAILY PRN (Reason: GERD) ondansetron HCl 8 mg tablet 8 mg PO Q8H PRN PRN (Reason: Nausea) 7 Days Qty: 20 0RF oxycodone-acetaminophen [Percocet] 5-325 mg tablet 1 tab PO Q8H PRN (Reason: pain) 5 Days Qty: 15 0RF phenazopyridine [Pyridium] 200 mg tablet 200 mg PO TID PRN PRN (Reason: Bladder Spasms) 7 Days Qty: 30 0RF Referrals / Follow Up: Didi Bennett PA [Primary Care Provider] - Disposition Disposition (needs filled in before D/C Order can be placed): Home, Self Care
[2023-02-17 10:11] VITALS: BP 140/96; PULSE 81; RESP 18; TEMP 36.4; O2SAT 97
== END 2023-02-17 13:24 | disposition home or self-care (01) | DRG 862 ==
LOC: ED 13:43 → PCU 02-15 08:25
PROVIDERS: Admitting Provider Urology; Emergency Provider Student in an Organized Health Care Education/Training Program; PCP Physician Assistant; Visit Provider Urology
DX: T81.44XA Sepsis following a procedure, initial encounter (principal); A41.9 Sepsis, unspecified organism; N10 Acute pyelonephritis; F32.A Depression, unspecified; K21.9 Gastro-esophageal reflux disease without esophagitis; F41.9 Anxiety disorder, unspecified; Y83.8 Other surgical procedures as the cause of abnormal reaction of the patient, or of later complication, without mention of misadventure at the time of the procedure; R31.0 Gross hematuria
CPT/HCPCS: 36415; 71045; 74177; 80048; 80053; 81001; 83605; 84484; 85025; 85610; 85730; 87040; 87086; 87088; 87186; 87428; 93005; 93971; 94668; 99285; J7030; J7120; Q9967; A4216; J0744; J2405

== ENCOUNTER 2023-02-28 09:33 | Day surgery (SDC) | payer SELFPAY, OTHER ==
[2023-02-28] VITALS (8 sets, daily range): BP systolic 104–135; BP diastolic 64–97; PULSE 66–96; RESP 16–18; TEMP 36.1–36.6; O2SAT 92–97; BMI 37.8
[2023-02-28] MEDS: Lactated Ringers 1,000 ML 15 ML IV (10:19)
--- NOTE | 2023-02-28 10:21 | PCM.OPRPT ---
Problems Associated Problem List Diagnoses (1) Gross hematuria: Report of Operation Date of Procedure: 02/28/23 Pre-Operative Diagnosis: Gross hematuria Post-Operative Diagnosis: Same Surgery/Procedure Performed:: Cystoscopy, bilateral ureteral stent removal, bilateral ureteroscopy Surgeon: Kacy Mullen Type of Anesthesia: General Description of Procedure: The patient is a 33-year-old female with episodes of gross hematuria without etiology known. She underwent a cystoscopy and attempt at bilateral ureteroscopy, however she ended up with stent secondary to inability to advance the ureteroscope easily. At this time she presents for the ureteroscopic portion of the evaluation. Informed consent was obtained. The patient was taken to the operating room placed on the operating room table. Anesthesia monitored the head, neck, airway, IV access and vital signs throughout the case. Once anesthesia was appropriately ministered, the patient was placed into dorsolithotomy position was prepped and draped in usual sterile fashion. At this time the cystoscope was inserted through the urethra under direct visualization into the urinary bladder. The left ureteral stent was identified and grasped with grasping forceps. It was pulled to the urethral meatus where it was loaded with an 0.035 Glidewire and then removed. At this time the flexible ureteroscope was placed over the Glidewire and easily advanced all the way to the renal pelvis. Direct visualization of the entire renal pelvis and the entire length of the left ureter was performed revealing no evidence of mass, erythema, foreign body, stone or other etiology for hematuria. This process was repeated on the patient's right side with same findings. The patient's bladder was then emptied and the procedure was terminated. She was awakened and taken to the recovery room in good condition. There were no complications during this procedure. Complications None Admit VTE Documentation VTE Present on Admission: Yes VTE Mechan Device Prophylaxis: SCD's VTE Pharm Prophylaxis ordered?: No Reason prophylaxis not ordered:: Treatment Not Indicated
[2023-02-28 10:23] LABS: Internal QC Validated? YES +Cl - CLEAR BKGD; Pregnancy, Urine Negative Negative; Record Kit Lot#,Urine Preg HCG0000667200
--- NOTE | 2023-02-28 10:23 | EX.PCM.DISCH ---
Discharge Instructions Diet Discharge Diet: No restrictions Activity Discharge Activity: Return to Normal Activity Dressing / Incision Call your doctor if you observe: Fever of 101 or Higher, Inability to urinate and Inability to have a bowel movement Follow Up Care Please Follow Up With: Kacy Mullen MD When: The office will call the patient to set up follow-up appointment Test Results: Test results from this visit will be discussed in further detail at your follow-up appointment, if applicable. Discharge Plan Admission Attending Provider: Kacy Mullen Primary Care Provider: Didi Bennett Discharge Orders/Prescriptions Prescriptions: New oxycodone-acetaminophen [Percocet] 5-325 mg tablet 1 tab PO Q8H PRN (Reason: pain) 2 Days Qty: 6 0RF cephalexin [cephalexin] 500 mg capsule 500 mg PO Q12 3 Days Qty: 6 0RF Continued duloxetine 30 mg capsule,delayed release(DR/EC) 30 mg PO DAILY Hold Instructions: MD Ordered Patient Comments: TAKE ONE CAPSULE BY MOUTH DAILY omeprazole 20 mg tablet,delayed release (DR/EC) 20 mg PO DAILY PRN (Reason: GERD) ondansetron HCl 8 mg tablet 8 mg PO Q8H PRN PRN (Reason: Nausea) 7 Days Qty: 20 0RF oxycodone-acetaminophen [Percocet] 5-325 mg tablet 1 tab PO Q8H PRN (Reason: pain) 5 Days Qty: 15 0RF phenazopyridine [Pyridium] 200 mg tablet 200 mg PO TID PRN PRN (Reason: Bladder Spasms) 7 Days Qty: 30 0RF Discontinued ciprofloxacin HCl [ciprofloxacin HCl] 500 mg tablet 500 mg PO BID Qty: 16 0RF Referrals / Follow Up: Didi Bennett PA [Primary Care Provider] - Disposition Disposition (needs filled in before D/C Order can be placed): Home, Self Care
[2023-02-28] MEDS: Cefazolin 2 GM in 0.9% Normal Saline (100mL Bag) 100 ML IV (11:33)
== END 2023-02-28 15:40 | disposition home or self-care (01) ==
LOC: SDC 09:35 → AC 09:36
PROVIDERS: Anesthesiology; PCP Physician Assistant; Referring Provider Urology; Visit Provider Urology
PROC: (CPT 52310; principal; 2023-02-28 10:55)
DX: Z46.6 Encounter for fitting and adjustment of urinary device (principal); R31.0 Gross hematuria; E78.5 Hyperlipidemia, unspecified; Z79.899 Other long term (current) drug therapy
CPT/HCPCS: 52310; 00910; 76000; 81025; J7120; J2405

== ENCOUNTER 2023-03-03 20:29 | Emergency (ER) | payer OTHER, SELFPAY ==
[2023-03-03 20:30] VITALS: BP 145/91; PULSE 112; RESP 16; TEMP 36.2; O2SAT 94; BMI 38.2
--- NOTE | 2023-03-03 21:12 | ED.VIS.LOWEX ---
HPI History of Present Illness Chief Complaint: Lower Extremity Injury Detail of Chief Complaint: Right calf pain and swelling that started last evening Informant: patient Occured/Mechanism Comment: There is no history of trauma Onset/Context/Timing Onset: Yesterday Context: Sudden Onset Timing: Continuous Quality of Pain: Dull and Aching Location: Right lower extremity pain is located in the calf Current Severity: Mild Maximum Severity: Moderate Worsened by: Walking and palpation Relieved by: Nothing Associated Symptoms Associated Symptoms: Negative for Parasthesia, Weakness or Loss of Funtion Narrative Narrative: Patient is a 33-year-old woman who was admitted on February 14 and discharged on February 17. She was admitted for sepsis due to pyelonephritis. She required stents per Dr. Kacy Garcia. Stents were removed February 28. Patient has not been active. She now presents with atraumatic right calf pain. She denies shortness of breath. She denies hemoptysis. She denies pleuritic chest pain. She denies fever, chills night sweats. Denies headache, visual, ocular auditory symptoms. She denies GI symptoms. She denies urologic symptoms. Tetanus Immunization: 5-10 years Prior similar symptoms: No Recent Illness/Hospitalization: [facility] Medical History Anxiety Back pain Bladder disease Dietary restriction Easy bruising Endometriosis Fatty liver Gastric reflux Gross hematuria History of Crohn's disease History of edema History of GI bleed History of pain when walking Hx of Lyme disease Injury of head and neck Leg cramps Migraine headache Non-smoker Shortness of breath on exertion Syncope Wears glasses Home Medications duloxetine 30 mg capsule,delayed release 30 mg PO DAILY 12/21/22 [History Last Taken Unknown] omeprazole 20 mg tablet,delayed release 20 mg PO DAILY PRN GERD 12/21/22 [History Last Taken Unknown] ondansetron HCl 8 mg tablet 8 mg PO Q8H PRN PRN Nausea 7 days #20 TABLETS 02/07/23 [Rx Last Taken 02/13/23] oxycodone-acetaminophen 5 mg-325 mg tablet (Percocet) 1 tab PO Q8H PRN pain 5 days #15 tabs 02/07/23 [Rx Last Taken 02/13/23] phenazopyridine 200 mg tablet (Pyridium) 200 mg PO TID PRN PRN Bladder Spasms 7 days #30 tabs 02/07/23 [Rx Last Taken 02/13/23] cephalexin 500 mg capsule 500 mg PO Q12 post-operative 3 days #6 CAPSULES 02/28/23 [Rx Last Taken Unknown] oxycodone-acetaminophen 5 mg-325 mg tablet (Percocet) 1 tab PO Q8H PRN pain 2 days #6 tabs 02/28/23 [Rx Last Taken Unknown] Allergy/AdvReac Type Severity Reaction Status Date / Time succinylcholine Allergy Unknown Other Verified 03/03/23 20:30 adhesive tape AdvReac Rash Verified 03/03/23 20:30 Surgical History History of cystoscopy History of esophagogastroduodenoscopy (EGD) History of removal of Port-a-Cath History of stapedectomy History of surgery Hx of colonoscopy Hx of local excision of skin lesion Hx of oral surgery Social History Smoking Status: Never smoker ROS ROS ED Constitutional Constitutional ED: Denies chills, fever(s), subjective, sweats or weight loss Eyes Eyes: Denies blurry vision, change in vision or diplopia ENT ENT ED: Denies ear pain, rhinorrhea or sore throat Cardiovascular Cardiovascular: Denies chest pain or palpitations Respiratory/Chest Respiratory/Chest: Denies cough, dyspnea or dyspnea on exertion Gastrointestinal Gastrointestinal: Denies abdominal pain, nausea or vomiting Genitourinary Genitourinary ED: Denies dysuria, hematuria or urinary frequency Musculoskeletal Musculoskeletal: Denies arthralgias, back pain or myalgias Integumentary Denies rash Neurologic Neurologic: Denies paresthesias or weakness Hematologic/Lymphatic Hematologic/Lymphatic: Denies easy bleeding or easy bruising EXAM Physical Exam Const Vital Signs: 03/03/23 20:30 Temperature 97.2 F L Temperature Source Temporal Pulse Rate 112 H Respiratory Rate 16 Blood Pressure 145/91 H Blood Pressure Mean 109 Pulse Ox 94 Positive well nourished, well developed and obese General Appearance ED: well developed and NAD Nutritional Appearance: obese HEENT normocephalic and atraumatic Eyes PERRL Eyes Narrative: Extract muscles are intact. Sclera is anicteric. Conjunctive is pink. Neck full ROM and supple Resp normal respiratory effort, no retractions and clear to auscultation bilaterally Cardio regular rate, regular rhythm, S1 normal heart sound, S2 normal heart sound and no murmurs Cardio Narrative: Patient is not tachycardic when examined by me. GI non-tender, non-distended and no masses Auscultation: normoactive bowel sounds Palpation: soft Extremity full ROM; Negative for normal to inspection Extremity Narrative: The right lower extremity is significantly swollen in comparison to the left. There is tenderness on the distribution deep venous system. There may be slight leg vein distention. There is no palpable cords. Neuro oriented x3, CN's II-XII intact bilaterally, moves all extremities and no sensory deficits noted Motor Exam: strength 5/5 throughout Psych Mood & Affect: anxious Skin no wounds Lesions: no lesions Rashes: no rashes MDM MDM MDM Narrative Medical decision making narrative: Wells criteria for DVT is significant and patient has high pretest probability. D-dimer is not indicated. Patient has venous duplex study. Venous duplex study is not available at this hour. Since patient has no contraindication to anticoagulation she received 10 mg of Eliquis in the department. She was scheduled for venous duplex study in the morning. Treatment and Re-Evaluation Narrative: Patient was informed that there is a concern that she has a blood clot in her leg. She will was started on anticoagulation therapy since she has no contraindication. She was instructed to return if she develops acute shortness of breath, chest pain with breathing or coughing that is productive of blood or streaks of blood. Discharge Plan Triage Chief Complaint: Lower Extremity Injury ED Provider: Abdelrahman Gomez Dx/Rx/DC Orders Clinical Impression: Pain and swelling of right lower extremity Instructions: ED Peripheral Edema, Unilateral Prescriptions: No Action oxycodone-acetaminophen [Percocet] 5-325 mg tablet 1 tab PO Q8H PRN (Reason: pain) 2 Days Qty: 6 0RF cephalexin [cephalexin] 500 mg capsule 500 mg PO Q12 3 Days Qty: 6 0RF duloxetine 30 mg capsule,delayed release(DR/EC) 30 mg PO DAILY Hold Instructions: MD Ordered Patient Comments: TAKE ONE CAPSULE BY MOUTH DAILY omeprazole 20 mg tablet,delayed release (DR/EC) 20 mg PO DAILY PRN (Reason: GERD) ondansetron HCl 8 mg tablet 8 mg PO Q8H PRN PRN (Reason: Nausea) 7 Days Qty: 20 0RF oxycodone-acetaminophen [Percocet] 5-325 mg tablet 1 tab PO Q8H PRN (Reason: pain) 5 Days Qty: 15 0RF phenazopyridine [Pyridium] 200 mg tablet 200 mg PO TID PRN PRN (Reason: Bladder Spasms) 7 Days Qty: 30 0RF Primary Care Provider: Didi Bennett Referrals: Didi Bennett PA [Primary Care Provider] - 1-2 Weeks Activity Restrictions/Additional Instructions: You will need to contact the venous duplex quality assurance/r&d lab technician in the morning to rule out a clot. They will contact you in the morning. If you do not hear from them by 9 AM please call [phone] and ask for the nurse he supervisor reclamation. If you have abrupt onset of shortness of breath or chest pain or cough and you note blood return to the emergency department immediately. The medication you received this evening will make you bleed more easily. Disposition Disposition: Home, Self Care
[2023-03-03] MEDS: APIXABAN 5 MG TABLET 10 MG PO (21:48)
== END 2023-03-03 21:55 | disposition home or self-care (01) ==
PROVIDERS: Emergency Provider Emergency Medicine; PCP Physician Assistant; Visit Provider Emergency Medicine
DX: M79.89 Other specified soft tissue disorders (principal); M79.661 Pain in right lower leg; E66.9 Obesity, unspecified
CPT/HCPCS: 99282

== ENCOUNTER → 2023-03-04 | Outpatient (CLI) | payer SELFPAY, OTHER ==
--- NOTE | 2023-03-04 11:12 | VDLE_ITS ---
Reason For Study: Right leg pain RIGHT GSV is normal. CFV is compressible, spontaneous, phasic, competent and demonstrates normal augmentation. FV is compressible, spontaneous, phasic, competent and demonstrates normal augmentation. POP V is compressible, spontaneous, phasic, competent and demonstrates normal augmentation. T/P Trunk is compressible. PTV is compressible. RT PerV is compressible. Procedure This is a venous duplex using B-mode, color flow and spectral Doppler. Exam performed in department. A preliminary report was called and/or faxed to PCP: Donald VARGAS. VL/Venous Duplex US, Unilateral Interpretation Summary Deep veins of the right lower extremity are patent and compressible segmentally . There is no evidence of right lower extremity deep vein thrombosis. Valvular competence malik ears intact within the proximal deep venous system on the right . The right great saphenous vein a ppears patent and compressible segmentally. Ordering Physician: Abdelrahman Gomez Referring Physician: Didi Bennett Performed By: Monserrat Navarro RVT
== END | disposition home or self-care (01) ==
PROVIDERS: PCP Physician Assistant; Referring Provider Emergency Medicine; Visit Provider Emergency Medicine
DX: M79.661 Pain in right lower leg (principal)
CPT/HCPCS: 93971

== ENCOUNTER 2023-04-28 21:26 | Emergency (ER) | payer OTHER, SELFPAY ==
[2023-04-28 21:27] VITALS: BP 138/84; PULSE 125; RESP 16; TEMP 36.8; O2SAT 97; BMI 36.1
--- NOTE | 2023-04-28 22:03 | EX.ED.DYSGE1 ---
HPI History of Present Illness Chief Complaint: Allergic Reaction Informant: patient Onset/Context/Timing Onset: Days (3) Context: Sudden Onset Timing: Continuous Quality: Numbness, swelling Location: Mouth and lips Worsened by: Nothing Relieved by: Baking soda and vinegar Narrative Narrative: Patient presents with hives that have been getting worse over the past 3 days. Patient states it began rather suddenly. Patient states that tonight she noticed some numbness and swelling of her mouth and lips. Patient denies any difficulty breathing or difficulty swallowing. Patient states she took a bath and baking soda and vinegar which did help with some of the itching and hives. Patient denies any new soaps, laundry detergents, foods, or other exposures. Patient admits to nausea but denies any vomiting. [facility] Medical History Anxiety Back pain Bladder disease Dietary restriction Easy bruising Endometriosis Fatty liver Gastric reflux Gross hematuria History of Crohn's disease History of edema History of GI bleed History of pain when walking Hx of Lyme disease Injury of head and neck Leg cramps Migraine headache Non-smoker Shortness of breath on exertion Syncope Wears glasses Home Medications duloxetine 30 mg capsule,delayed release 30 mg PO DAILY 12/21/22 [History Last Taken Unknown] omeprazole 20 mg tablet,delayed release 20 mg PO DAILY PRN GERD 12/21/22 [History Last Taken Unknown] ondansetron HCl 8 mg tablet 8 mg PO Q8H PRN PRN Nausea 7 days #20 TABLETS 02/07/23 [Rx Last Taken 02/13/23] oxycodone-acetaminophen 5 mg-325 mg tablet (Percocet) 1 tab PO Q8H PRN pain 5 days #15 tabs 02/07/23 [Rx Last Taken 02/13/23] phenazopyridine 200 mg tablet (Pyridium) 200 mg PO TID PRN PRN Bladder Spasms 7 days #30 tabs 02/07/23 [Rx Last Taken 02/13/23] cephalexin 500 mg capsule 500 mg PO Q12 post-operative 3 days #6 CAPSULES 02/28/23 [Rx Last Taken Unknown] oxycodone-acetaminophen 5 mg-325 mg tablet (Percocet) 1 tab PO Q8H PRN pain 2 days #6 tabs 02/28/23 [Rx Last Taken Unknown] Allergy/AdvReac Type Severity Reaction Status Date / Time succinylcholine Allergy Unknown Other Verified 04/28/23 21:29 adhesive tape AdvReac Rash Verified 04/28/23 21:29 Surgical History History of cystoscopy History of esophagogastroduodenoscopy (EGD) History of removal of Port-a-Cath History of stapedectomy History of surgery Hx of colonoscopy Hx of local excision of skin lesion Hx of oral surgery Social History Smoking Status: Never smoker ROS ROS ED Constitutional Constitutional ED: Denies chills or fever(s) Eyes Eyes: Denies blurry vision or change in vision ENT ENT ED: Reports sore throat; Denies rhinorrhea Cardiovascular Cardiovascular: Denies chest pain or palpitations Respiratory/Chest Respiratory/Chest: Denies cough or dyspnea Gastrointestinal Gastrointestinal: Reports nausea; Denies vomiting Genitourinary Genitourinary ED: Denies dysuria or hematuria Musculoskeletal Musculoskeletal: Reports back pain; Denies neck pain Integumentary Reports rash; Denies abscess Neurologic Neurologic: Reports headache(s); Denies weakness Allergic/Immunologic Allergic/Immunologic ED: Reports mouth swelling and urticaria EXAM Physical Exam Const Vital Signs: 04/28/23 21:27 Temperature 98.2 F Temperature Source Temporal Pulse Rate 125 H Respiratory Rate 16 Blood Pressure 138/84 H Blood Pressure Mean 102 Pulse Ox 97 Oxygen Delivery Method Room Air Positive well nourished, well developed and obese General Appearance ED: well developed and NAD Nutritional Appearance: obese HEENT Reports moist mucous membranes HEENT Narrative: Oropharynx is clear. Airway is patent. There is some mild edema of the lips. Neck is supple. Trachea is midline. There is no JVD noted. Neck supple and no JVD Resp normal respiratory effort and clear to auscultation bilaterally Cardio regular rate and regular rhythm GI non-tender and non-distended Palpation: soft Neuro oriented x3, CN's II-XII intact bilaterally and no sensory deficits noted Sensorium / Orientation: alert Motor Exam: strength 5/5 throughout Psych mental status grossly normal Skin Skin Narrative: There is patchy urticarial rash noted. There are no vesicles or pustules. There is no involvement of the palms or soles. There is no involvement of mucous membranes. There are no petechia noted. MDM MDM MDM Narrative Medical decision making narrative: Differential diagnosis includes allergic reaction, urticaria, infection, and electrolyte abnormality. CBC will be obtained to assess for leukocytosis and anemia. Basic metabolic profile will be obtained to assess for electrolyte abnormality and renal function. Urinalysis will be obtained to assess for urinary tract infection and hematuria. Lab Data Attestation: I reviewed the patient's lab results. Lab results narrative: CBC was reviewed. There is a slight leukocytosis of 11.7. The remainder was within normal limits. Basic metabolic profile was reviewed. Glucose was slightly elevated at 122. Potassium slightly low at 3.0 and chloride was 108. Urinalysis was reviewed. There is no evidence of urinary tract infection or hematuria. Labs: Laboratory Results - last 24 hr 04/28/23 22:14 WBC 11.7 H RBC 4.97 Hgb 13.3 Hct 40.7 MCV 81.9 MCH 26.8 L MCHC 32.7 RDW Std Deviation 41.3 RDW Coeff of Anita 14.1 Plt Count 276 MPV 8.9 Immature Gran % (Auto) 0.300 Neut % (Auto) 79.5 H Lymph % (Auto) 16.2 L [place] % (Auto) 3.3 Eos % (Auto) 0.6 Baso % (Auto) 0.1 Absolute Neuts (auto) 9.3 H Absolute Lymphs (auto) 1.90 Nucleated RBC % 0 Treatment and Re-Evaluation :: Patient was given a dose of Solu-Medrol and Benadryl here. Patient was given a dose of potassium. Patient was advised of her findings. Patient is feeling better on reevaluation. Patient was given a prescription for a short course of prednisone. Patient was instructed to follow-up with her primary care physician in 3 to 5 days for reevaluation. Patient understood and was agreeable with the plan. All questions were answered. Discharge Plan Triage Chief Complaint: Allergic Reaction ED Provider: Mac Devine Dx/Rx/DC Orders Clinical Impression: Urticaria, Hypokalemia Instructions: ED Hives (Adult) Prescriptions: No Action oxycodone-acetaminophen [Percocet] 5-325 mg tablet 1 tab PO Q8H PRN (Reason: pain) 2 Days Qty: 6 0RF cephalexin [cephalexin] 500 mg capsule 500 mg PO Q12 3 Days Qty: 6 0RF duloxetine 30 mg capsule,delayed release(DR/EC) 30 mg PO DAILY Hold Instructions: MD Ordered Patient Comments: TAKE ONE CAPSULE BY MOUTH DAILY omeprazole 20 mg tablet,delayed release (DR/EC) 20 mg PO DAILY PRN (Reason: GERD) ondansetron HCl 8 mg tablet 8 mg PO Q8H PRN PRN (Reason: Nausea) 7 Days Qty: 20 0RF oxycodone-acetaminophen [Percocet] 5-325 mg tablet 1 tab PO Q8H PRN (Reason: pain) 5 Days Qty: 15 0RF phenazopyridine [Pyridium] 200 mg tablet 200 mg PO TID PRN PRN (Reason: Bladder Spasms) 7 Days Qty: 30 0RF Primary Care Provider: Didi Bennett Referrals: Didi Bennett PA [Primary Care Provider] - 3-5 Days Disposition Disposition: Home, Self Care
[2023-04-28 22:21] LABS: Absolute Neutrophil Count 9.3 X10^3/uL (2.0-7.7); Basophil# 0.01 X10^3/uL; Basophil% 0.1 % (0-1); Eosinophil# 0.07 X10^3/uL; Eosinophils% 0.6 % (0-5); Hematocrit 40.7 % (37-47); Hemoglobin 13.3 g/dL (12.0-15.0); Lymphocyte % 16.2 % (19-41); Mean Corp Hgb Conc 32.7 g/dL (32-36); Mean Corpuscular Hgb 26.8 pg (27.0-32.0); Mean Corpuscular Volume 81.9 fL (81-99); Mean Platelet Vol. 8.9 fl (6.2-12.0); Monocyte# 0.39 X10^3/uL; Monocyte% 3.3 % (0-10); NRBC Flagged by Analyzer 0 % (0-5); Neutrophil # 9.29 X10^3/uL (2.7-7.7); Neutrophil % 79.5 % (47-70); Platelet Count 276 K/mm3 (150-450); RBC Distribution Width CV 14.1 % (11.6-14.6); RBC Distribution Width SD 41.3 fl (35.1-43.9); Red Blood Count 4.97 M/mm3 (4.2-5.4); White Blood Count 11.7 K/mm3 (4.4-11.0)
[2023-04-28] MEDS: MethylPREDNISolone 125 MG/2 ML Vial 60 MG IV (22:22)
[2023-04-28] MEDS: 0.9% Normal Saline (1000mL) 1,000 ML 1000 ML IV (22:22)
[2023-04-28] MEDS: DiphenhydrAMINE 50 MG/ML Syringe 25 MG IV (22:23)
[2023-04-28 22:27] VITALS: PULSE 104
[2023-04-28 22:38] LABS: Anion Gap 6 (5-15); BUN 13 mg/dL (7-18); BUN/Creat Ratio 17.7 RATIO (10-20); Calcium,Total 8.9 mg/dL (8.5-10.1); Chloride 108 mmol/L (98-107); Creatinine, Serum 0.74 mg/dL (0.55-1.02); EST Glomerular Filtration Rate 96 mL/min (>60); Est Glom Filt Rate - Afr Amer 116 mL/min (>60); Estimated Creatinine Clearance 88.61 ml/min; Glucose 122 mg/dL (74-106); Sodium Level 139 mmol/L (136-145)
[2023-04-28 22:40] LABS: White Blood Cells 0 SEEN /hpf (0-5)
[2023-04-28 22:45] LABS: Color, Urine Yellow (Yellow); Glucose, Dipstick Normal (Normal); Ketone-Dipstick 15 mg/dl (Negative); Leukocyte Esterase-Dipstick 25 /ul (Negative); Nitrite-Dipstick Negative (Negative); Occult Blood-Urine 25 /ul (Negative); Protein-Dipstick 15 mg/dl (Negative); Specific Gravity, Urine 1.025 (1.002-1.030); Urine Bilirubin Dipstick Negative (Negative); Urine Clarity Clear (Clear); Urine Urobilinogen Normal (Normal)
[2023-04-28 22:54] LABS: Bacteria RARE /hpf (None Seen); Mucous, Urine 1+ /hpf (<or=2+); Red Blood Cells-Urine 0-5 SEEN /hpf (0-5); Squamous Epithelial Cells - UA 0-5 SEEN /hpf (5-10)
[2023-04-28] MEDS: Potassium Chloride Oral Tablet 20 MEQ 40 MEQ PO (23:02)
[2023-04-29 00:28] VITALS: BP 130/65; PULSE 99; RESP 18; O2SAT 98
== END 2023-04-29 00:28 | disposition home or self-care (01) ==
PROVIDERS: Emergency Provider Emergency Medicine; PCP Physician Assistant; Visit Provider Emergency Medicine
DX: L50.9 Urticaria, unspecified (principal); R60.9 Edema, unspecified; E87.6 Hypokalemia; R11.0 Nausea; E66.9 Obesity, unspecified; Z79.899 Other long term (current) drug therapy
CPT/HCPCS: 80048; 81001; 85025; 96361; 96374; 96375; 99283; J7030; A4216

== ENCOUNTER → 2023-06-04 | Outpatient (CLI) | payer SELFPAY, OTHER ==
--- OUTSIDE RECORDS SUMMARY | 2023-06-04 10:52 | XMS RPT_ITS | CCD ---
Author Name Unknown Address [address] [place] [address] Organization [facility] Care Team Providers Care Extension Forester Name Role Phone Unavailable Primary Care Provider Unavailabl e [facility], Sean J Unavailable [facility], Sean J Unavailable [phone] [facility] Unavailable Gastroenterology Provider Unavailable Elizabeth Krause JIG AND FIXTURE REPAIRER, Anna Unavailable Unavailable [facility] [employer] SOFTWARE TESTERRosa M Unavailable Unavailab le Infectious Disease Provider Unavailable Unav ailable Rheumatolgy Provider Unavailable Unavailable LEONARDO GRIGGS DR Admitting Unavailable LEONARDO GRIGGS DR Primary Care Unavailable LEONARDO GRIGGS DR Attending Unavailable BENNETT, SEAN J Consulting Unavailable PROVIDER, UNKNOWN Consulting Unavailable LEONARDO GRIGGS DR Admitting Unavailable LEONARDO RGIGGS DR Primary Care Unavailable LEONARDO GRIGGS DR Attending Unavailable BENNETT, SEAN J Consulting Unavailable PROVIDER, UNKNOWN Consulting Unavailable OMISMAEL, YANCI A Admitting Unavailable OMLOR, YANCI A Primary Care Unavailable OMISMAEL, YANCI A Attending Unavailable BENNETT, SEAN J Consulting Unavailable PROVIDER, UNKNOWN Consulting Unavailable BENNETTSEAN J Attending Unavailable BENNETT, SEAN J Admitting Unavailable BENNETT, SEAN J Primary Care Unavailable BENNETT, SEAN J Consulting Unavailable PROVIDER, UNKNOWN Consulting Unavailable ROSA CLARKE Admitting Unavailable TRICIA ROSA Primary Care Unavailable LINDA CLARKEA Attending Unavailable BENNETT, SEAN J Consulting Unavailable PROVIDER, UNKNOWN Consulting Unavailable RICHA MARINO Admitting Unavailable RICHA MARINO Primary Care Unavailable RICHA MARINO Attending Unavailable BENNETT, SEAN J Consulting Unavailable PROVIDER, UNKNOWN Consulting Unavailable Unavailable Unavailable BENNETT, SEAN J Referring Unavailable BENNETT, SEAN J Primary Care Unavailable SETH COLMENARES I Attending Unavailable BENNETT, SEAN J Referring Unavailable SETH COLMENARES I Attending Unavailable SEAN BENNETT Primary Care Unavailable SETH COLMENARES I Attending Unavailable SEAN BENNETT Primary Care Unavailable SETH COLMENARES I Referring Unavailable SETH COLMENARES I Attending Unavailable Medications Current Medications Medication Drug Class(es) Dates Sig (Normalized) Sig (Original) Cholecalciferol (7 sources) Vitamin D Vitamin D doxycycline hyclate 100 mg oral tablet (6 sources) Tetracycline-cla ss Drug Start: 05-08-2023 doxycycline hyclate 100 mg tablet ; 1 (one) tablet BID for 28 days Quantity: 56 {Tablet} Refills: 0 Ordered: 08-May-2023 JENI Bennett Start: 08-May-2023 omeprazole 40 mg delayed release oral capsule (4 sources) Proton Pump Inhibitor Start: 05-17-2023 omeprazole 40 mg capsule,delayed release ; 1 (one) capsule daily for 0 days Quantity: 30 {Capsule} Refills: 0 Ordered: 17-May-2023 ALESSIA Graves Start: 17-May-2023 Completed/Discontinued Medications Medication Drug Class(es) Dates Sig (Normalized) Sig (Original) amoxicillin 875 mg / clavulanate 125 mg oral tablet (7 sources) Penicillin-class Antibacterial Start: 09-13-2021 End: 09-23-2021 take 1 tablet by mouth twice daily Amoxicillin-Pot Clavulanate 875-125 MG Oral Tablet ; 1 (one) Tablet BID for 10 days Quantity: 20 {Tablet} Refills: 0 Ordered: 13-Sep-2021 JENI Bennett Start: 13-Sep-2021 End: 23-Sep-2021 Status: Inactive DULoxetine 30 mg delayed release oral capsule (2 sources) Serotonin and Norepinephrine Reuptake Inhibitor Start: 02-28-2021 take 1 capsule by mouth once daily DULoxetine (CYMBALTA) 30 mg capsule Take 1 capsule by mouth once daily. 14 capsule 0 02/28/2021 Active Problems Active Problems Problem Classification Problem Date Documented Date Episodic/Chronic Abdominal pain (8 sources) Abdominal pain; Translations: [Unspecified abdominal pain] 05-17-2023 Episodic Allergic reactions (14 sources) Urticaria; Translations: [Urticaria, unspecified] 05-02-2023 Episodic Diseases of white blood cells (20 sources) Leukocytosis; Translations: [Elevated white blood cell count, unspecified] 05-02-2023 Chronic Fever of unknown origin (14 sources) Fever; Translations: [Fever, unspecified] 05-02-2023 Episodic Fluid and electrolyte disorders (14 sources) Hypokalemia; Translations: [Hypokalemia] 05-02-2023 Episodic Headache; including migraine (1 source) Refractory migraine without aura; Translations: [Chronic migraine without aura, intractable, with status migrainosus] Chronic Immunizations and screening for infectious disease (18 sources) Bacterial antibody present; Translations: [Other specified abnormal immunological findings in serum] 05-08-2023 Episodic Menstrual disorders (3 sources) Irregular menstruation, unspecified; Translations: [Irregular menstruation, unspecified] Onset: 09-12-2022 Chronic Nutritional deficiencies (14 sources) Vitamin D deficiency; Translations: [Vitamin D deficiency, unspecified] 05-02-2023 Chronic Open wounds of head; neck; and trunk (20 sources) Open wound; Translations: [Open wound(s) (multiple) of unspecified site(s), without mention of complication] 05-02-2023 Episodic Other connective tissue disease (1 source) Fibromyalgia; Translations: [Fibromyalgia] Onset: 05-29-2023 Episodic Other endocrine disorders (14 sources) Hyperprolactinemia; Translations: [Hyperprolactinemia] 05-02-2023 Chronic Other non-traumatic joint disorders (20 sources) Multiple joint pain; Translations: [Pain in unspecified joint] 05-02-2023 Episodic Other non-traumatic joint disorders (1 source) Pain in unspecified joint; Translations: [Pain in unspecified joint] Onset: 05-29-2023 Episodic Other skin disorders (1 source) Rash and other nonspecific skin eruption; Translations: [Rash and other nonspecific skin eruption] Onset: 05-29-2023 Episodic Regional enteritis and ulcerative colitis (14 sources) Crohn's disease; Translations: [Crohn's disease, unspecified, without complications] 05-02-2023 Chronic Residual codes; unclassified (20 sources) H/O: neoplasm; Translations: [Other specified postprocedural states] 02-19-2022 Episodic Spondylosis; intervertebral disc disorders; other back problems (1 source) Neck pain; Translations: [Cervicalgia] Episodic Thyroid disorders (14 sources) Thyroid nodule; Translations: [Nontoxic single thyroid nodule] 05-02-2023 Chronic Unclassified (5 sources) Follow up consultation - The patient is here to follow-up after Emergency Room/Urgent Care on : (04/28/2023). Note for Consultation follow-up : Pt went to the ER for hives, was given Prednisone and is taking Benadryl and Claritin. Swelling is better but still has some of the rash; pt has swelling in her wrists and pain in her hands (has also had in hips and ankles at times). Pt was treated for Lyme in [place] with their Lyme program (last would have been 1st 2 weeks in April; said she was on IV abx x 14 days - doesn't know what it was). Rash started at joints and then spread to the rest of her body. Rash started on Saturday night. Joint pain started on Saturday (chronic x years; worsened in February). Worse in the evenings.No recent change in anything.Diagnosed at ER with urticaria and hypokalemia.Scheduled to go back to [place] Jun 30.Had ovarian cyst removed by Karishma Griggs - has endometriosis and said that in order to remove completely she would need hysterectomy vs OCP and she doesn't want to do OCP. Does have a lot of pain with menses. 05-02-2023 Unclassified (5 sources) [ADDITIONAL REASON] Transition into care - The patient is transitioning into care from an emergency room and a summary of care was reviewed. 05-02-2023 Unclassified (7 sources) Swelling of Left side of face - Developed swelling of left side of face x10 days ago (improved). Then developed sores inside of her mouth and nose, sores in her mouth cleared up and the one remaining in the nose is almost gone. No tooth pain. Did have swollen left lower gums at one point but she worked with them and pus came out and they are better now. Had a fever yesterday around noon of 103 and then it went up to 105 last night. No medication taken today. No tick bites, etc. No cold symptoms. No urinary symptoms.Did have some intermittent blisters on hands and feet but says these are chronic/intermittent for her.In regard to non-healing wound on head - she says she went down to [place] and followed up with the surgeon and everything healed up. 11-01-2021 Unclassified (2 sources) Transition into care - The patient is transitioning into care from an emergency room and a summary of care was reviewed. 05-02-2023 Unclassified (2 sources) [ADDITIONAL REASON] Follow up consultation - The patient is here to follow-up after Emergency Room/Urgent Care on : (04/28/2023). Note for Consultation follow-up : Pt went to the ER for hives, was given Prednisone and is taking Benadryl and Claritin. Swelling is better but still has some of the rash; pt has swelling in her wrists and pain in her hands (has also had in hips and ankles at times). Pt was treated for Lyme in [place] with their Lyme program (last would have been 1st 2 weeks in April; said she was on IV abx x 14 days - doesn't know what it was). Rash started at joints and then spread to the rest of her body. Rash started on Saturday night. Joint pain started on Saturday (chronic x years; worsened in February). Worse in the evenings.No recent change in anything.Diagnosed at ER with urticaria and hypokalemia.Scheduled to go back to [place] Jun 30.Had ovarian cyst removed by Karishma Griggs - has endometriosis and said that in order to remove completely she would need hysterectomy vs OCP and she doesn't want to do OCP. Does have a lot of pain with menses. 05-02-2023 Past or Other Problems Problem Classification Problem Date Documented Da te Episodic/Chronic Genitourinary symptoms and ill-defined conditions (1 source) Asymptomatic microscopic hematuria; Translations: [Asymptomatic microscopic hematuria] Onset: 09-12-2022 Episodic Other connective tissue disease (1 source) Bursitis of right shoulder; Translations: [Bursitis of right shoulder] Onset: 08-17-2022 Episodic Other non-traumatic joint disorders (3 sources) Pain in right shoulder; Translations: [Pain in right shoulder] Onset: 08-17-2022 Episodic Sprains and strains (1 source) Other sprain of right shoulder joint, initial encounter; Translations: [Other sprain of right shoulder joint, initial encounter] Onset: 08-17-2022 Episodic Unclassified (7 sources) suture removal - Pt is here to have 2 sutures removed from posterior aspect of left ear lobe. Pt had surgery due to hearing loss - details are unknown but was to have the sutures removed today. Doing well with no concerns. 02-19-2022 Unclassified (7 sources) follow from [place] - Pt had went to [place] and had large lesion (lipoma) removed from her head on July 12. At about 2 weeks she had an infection. Since then she has been having the [facility] burn team manage. Currently only putting B&W ointment on it which has been helping but no change noted over the past month; still has some drainage. Sutures were removed by the surgeon before she left. No fever, chills, etc.Had a colonoscopy in Dec 2020 and then again 07/12/21 - diagnosed with Crohn's disease. No longer having rectal bleeding. No longer taking medication for this.Also diagnosed and treated for Lyme and Shanique clarke virus. Prolactin level was high - was treated with cabergoline and repeat level was normal but then it was 55 in July. 09-13-2021 Results Test Name Value Interpretation Reference Range Facil ity Vital Signs Date Time Vital Sign Value Performing Clinician Hiren figueroa 05-02-2023 13:27-0500 Body height 158.75 cm Rosa Graves LPN [facility] 05-02-2023 13:27-0500 Body mass index (BMI) [Ratio] 37.08 kg/m2 Rosa Graves LPN [facility] 05-02-2023 13:27-0500 Body surface area Derived from formula 1.95 m2 Rosa Graves LPN [facility] [employer] 05-02-2023 13:27-0500 Body weight 93.44 kg Rosa Graves LPN [facility] 05-02-2023 13:27-0500 Diastolic blood pressure 86 mm[Hg] Rosa Graves LPN [facility] [employer] [employer] Encounters Encounter Date Encounter Type Care Provider Facility Start: 06-21-2023 ambulatory [facility] Start: 05-29-2023 ambulatory [facility] Start: 05-29-2023 End: 05-29-[address] [facility] Start: 05-24-2023 ambulatory SEAN BENNETT [facility] Start: 05-17-2023 End: 05-17-2023 Medication Sean Ortizer PA-C Work Phone: [employer] Start: 05-16-2023 End: 05-16-2023 ambulatory SEAN BENNETT [facility] Start: 05-15-2023 End: 05-15-2023 Orders Sean Bennett PA-C Work Phone: [employer]. Start: 05-08-2023 End: 05-08-2023 Orders Sean Bennett PA-C Work Phone: [employer] Start: 05-08-2023 End: 05-08-2023 Medication Sean Bennett PA-C Work Phone: [employer] Start: 05-02-2023 End: 05-02-2023 Office outpatient visit 25 minutes Sean Bennett PA-C Work Phone: [employer] Start: 02-18-2023 End: 02-19-2023 Telephone follow-up Sean Bennett PA-C Work Phone: [employer]. Start: 11-06-2022 ambulatory LEONARDO [facility] Start: 10-09-2022 End: 10-09-2022 ambulatory RICHA MARINO [facility] Start: 09-12-2022 End: 09-12-2022 ambulatory ROSA CLARKE [facility] Start: 08-17-2022 End: 11-05-2022 ambulatory LEONARDO GRIGGS [facility] Start: 02-19-2022 End: 02-19-2022 Office outpatient visit 5 minutes Sean Bennett PA-C Work Phone: [employer]. Start: 11-01-2021 End: 11-01-2021 Patient encounter procedure Sean Donald NGO Work Phone: [employer] Start: 09-18-2021 End: 09-18-2021 Orders Sean Bennett JENI Work Phone: [employer] Start: 09-13-2021 End: 09-13-2021 Patient encounter procedure Sean Donald NGO Work Phone: [employer] Start: 02-28-2021 End: 02-28-2021 Patient encounter procedure Paramjit Langford MD Work Phone: Neurology Procedures Date Procedure Procedure Detail Performing Clinician Start: 05-02-2023 End: 05-17-2023 Us soft tissue head & neck real time imge docm Sean Drake [facility] Work Phone: Start: 09-12-2022 Urinalysis LEONARDO FENTON Plan of Treatment Date Care Activity Detail Author Start: 05-23-2023 Nursing evaluation of patient and report Medical; Nurse visit - labs [employer] Start: 23-May-2023 14:00 NURSE, FLOAT Appointment Request [employer]. Start: 05-15-2023 Assay of ferritin FERRITIN (92939) Start: 15-May-2023 15:24 Request [employer]; [employer] Start: 05-15-2023 Sedimentation rate rbc automated ESR (SED RATE) (21829) Start: 15-May-2023 15:24 Request [employer] [employer] Start: 05-15-2023 C-reactive protein C-REACTIVE PROTEIN (34655) Start: 15-May-2023 15:24 Request [employer]; [employer] Start: 05-02-2023 Comprehensive metabolic panel CMP w/ GFR* (61321) Start: 02-May-2023 14:11 Request [employer] [employer] Start: 05-02-2023 Blood count complete auto&auto difrntl wbc CBC, PLATELETS & AUT DIFF (F) (04531) Start: 02-May-2023 14:11 Request [facility] Start: 05-02-2023 Rheumatoid factor quantitative RHEUMATOID FACTOR-QUANT (17954) Start: 02-May-2023 14:11 Request [employer] [employer] Start: 05-02-2023 Antibody borrelia burgdorferi lyme disease Lyme Titer/EIA, reflex IgM and IgG (47870) Start: 02-May-2023 14:11 Request [employer] [employer] Start: 05-02-2023 Antinuclear antibodies clyde CLYDE TITER AND PATTERN (17104) Start: 02-May-2023 14:11 Request [employer]; [employer] Start: 05-02-2023 Us soft tissue head & neck real time imge docm Thyroid Ultrasound (23518) Start: 02-May-2023 Intent [employer]; [employer] Start: 01-04-2021 Influenza vaccination INFLUENZA (#1) [facility] Start: 2019 HPV TESTING HPV TESTING [facility] Start: 2010 PAP TESTING PAP TESTING [facility] Start: 01-22-2008 Urine microalbumin profile DTAP,TDAP,TD (1 - Tdap) [facility] Start: 2007 HEPATITIS C SCREENING HEPATITIS C SCREENING [facility] Start: 2007 HIV SCREENING HIV SCREENING [facility] Start: 2001 Adult depression screening assessment DEPRESSION SCREENING [facility] Start: 2001 COVID-19 VACCINE (1) COVID-19 VACCINE (1) [facility] Payers Date Payer Category Payer Unknown [employer] P AY [employer] PAY GENERIC [id number] 2020-Present Other [id number] 1989 Unknown [id number] 1989 Unknown [id number] 1989 Unknown [id number] 1989 Unknown [id number] 1989 Unknown [id number] 1989 Unknown [id number] Unknown 22 3 Unknown Unknown 22-3 Social History Date Type Detail Facility Start: 02-28-2021 Tobacco smoking stat [facility] Never smoker [facility] Start: 02-28-2021 Tobacco use and exposure Never used [facility] Start: 1989 Sex Assigned At Not on file C [facility] Caffeine Use Caffeine Use [employer]; [employer] Tobacco Use: Tobacco Use: ; N ever smoker. [employer]; [employer] Female [employer]; [employer] Work Phone: Instructions 02-28-2021 Patient Instructions Note Date & Type Note Facility 02-28-2021 Instructions Paramjit Langford MD - 02/28/2021 1:55 PM EDT Cymbalta daily for migraine prevention Maxalt as needed for migraine rescue Continue massage therapy as needed Follow up in 4 months documented in this encounter [facility] History of Present illness Narrative 02-28-2021 Paramjit Langford MD - 02/28/2021 1:41 PM EDT Note Date & Type Note Facility 02-28-2021 History of Presen t illness Narrative Images from the original note were not included. Neurology Outpatient Clinic Date: February 28, 2021 Patient Name: Rossy Hayes Referring physician: SELF Reason for Evaluation: Headaches HPI: 31-year-old female presents for evaluation of headaches. She has had headaches since childhood. They worsened in her teenage years before improving somewhat but have worsened again over the last 2 to 3 years. Headaches have been daily for many years but intensity has gotten worse. Headaches can be holocephalic but most often are bitemporal with radiation to the top of the head. She has exacerbations 4 days/week on average. During exacerbations, she has photophobia, phonophobia, and nausea. Headaches are not positional. The only trigger she has identified is exertion. She has frequent neck pain. She does not get auras. Headache intensity gets up to 8 out of 10. Headache exacerbations last 2 to 3 days on average. She has a history of head trauma stemming from 5 years ago when she was hit with a softball in the left lutheran. No obvious worsening of headaches at that time. She gets regular menstrual periods. She is not on any oral contraceptives and has no plans for . She has been doing chiropractic manipulation and massage therapy with modest benefit. She saw a neurologist when she was a teenager and was given natural supplements which did not help. She has tried Aleve which also did not help. She is not currently taking any medications for her headaches. She has no other complaints at this time. 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 No current facility-administered medications on file prior to visit. MEDICAL HISTORY Chronic pain SURGICAL HISTORY None FAMILY HISTORY Sister with headaches ALLERGIES ALLERGIES No Known Allergies REVIEW OF SYSTEMS: A 10-point review of systems was obtained and is negative except as per HPI above. KP review: No flowsheet data found. No flowsheet data found. No flowsheet data found. No flowsheet data found. No flowsheet data found. OBJECTIVE PHYSICAL EXAM: BP 102/69 Pulse 82 Ht 160 cm (5' 3 ) Wt 91.1 kg (200 lb 14.4 oz) LMP 02/26/2021 BMI 35.59 kg/m Mental Status: Alert and oriented to person, place and time. Affect is blunted. Speech is normal in rate, volume and articulation. Short and long term care administrator memory, cognition and general fund of knowledge are good. Attention span and concentration are excellent. Cranial Nerves: II-Visual roth are full. Funduscopic examination reveals no papilledema. Venous pulsations present. III, IV, -EOMI, PERRL, nystagmus absent, V-normal facial sensation to light touch. VII-face is symmetric without evidence of weakness. VIII-hearing intact. IX, X-palate elevates symmetrically. XI-SCM 5/5. XII-tongue protrudes midline with normal movements. No atrophy or fasciculations of the tongue. Motor: Normal muscle tone and bulk. No evidence of atrophy or fasciculations. Strength is normal, 5/5. Sensation: normal light touch in the upper and lower extremities. Cerebellar: No ataxia. Tremor: absent. Normal finger to nose, heel to hernandez and rapid alternating movements. Muscle stretch reflexes are 2+ and symmetrical. No evidence of ankle clonus. Plantar responses are flexor. Pathologic reflexes: absent. Gait examination is normal. The patient had no difficulty with heel, toe or tandem walking. Romberg testing is normal. ASSESSMENT: 31-year-old female presenting for evaluation of headaches which are most consistent with chronic migraines without aura. I discussed different treatment options with her. I emphasized the importance of adequate hydration, limiting caffeine, and good sleep hygiene. I would refer her to physical therapy for her neck pain but she is already undergoing massage therapy which seems to help. I think she would benefit from both a prophylactic and an abortive medication. Her exam is normal with the exception of a fairly flat affect, raising concern for possible underlying depression although patient did not endorse this today. I would like to start her on Cymbalta. This should help her headaches and neck pain. She also endorses diffuse pain throughout her body and Cymbalta should hopefully help with this, and may help her mood as well. I will give her Maxalt to use as needed. I counseled her to use this 2 to 3 days/week at most. I also explained that these medication should not be used during and that if she were to become or to try and become , she should contact us immediately so we can discontinue them and discuss other treatment options. I will see her back in 3 to 4 months. All questions were answered. PLAN: Cymbalta daily for migraine prevention Maxalt as needed for migraine rescue Continue massage therapy as needed Follow up in 4 months - to call sooner if any questions or concerns I spent 50 minutes in this visit, with more than 50% of the time devoted to patient counseling and coordination of care. My impression and recommendations were discussed at length with the patient (and family members, if present). The patient and family (if present) voiced understanding to my recommendations. All questions were answered. The patient was provided with a detailed after visit summary highlighting my impression and recommendations (if seen in outpatient setting). Paramjit Langford MD [facility] General Neurology Associate Staff Board Certified in Adult Neurology by ABPN Board Certified in Headache Medicine by RUST Portions of this note have been composed using voice recognition and may contain restaurant hourly team member errors CC: Referring Physician: SELF PCP: To use this Smartlink, specify the provider ID whose address you want to display, e.g., .PROVADDR[1 (where 1 is the provider ID). documented in this encounter [facility] Evaluation note Note Date & Type Note Facility documented in this encounter [facility] Summary Purpose Family History No Family History Records FoundNo Family History Records FoundNo Family History Records FoundNo Family History Records FoundNo Family History Records Found Advance Directives No Advanced Directives Records FoundNo Advanced Directives Records FoundNo Advanced Directives Records FoundNo Advanced Directives Records FoundNo Advanced Directives Records Found Additional Source Comments INFORMATION SOURCE (unrecogn ized section and content) DATE CREATED AUTHOR AUTHOR'S ORGANIZ ATION 09/17/2021 [facility] DATE CREATED AUTHOR AUTHOR'S ORGANIZ ATION 09/14/2022 [facility] DATE CREATED AUTHOR AUTHOR'S ORGANIZ ATION 05/18/2023 [facility] DATE CREATED AUTHOR AUTHOR'S ORGANIZ ATION 06/01/2023 [facility] Source Comments (unrecognize d section and content) In the event this informatio n is protected by the Federal Confidentiality of Alcohol and Drug Abuse Patient Records regulations: The Federal rules restrict any use of the information to criminally investigate or prosecute any alcohol or drug abuse patient.[facility] Reason for Visit (unrecogniz ed section and content) Status Reason Specialty Diagnoses / Procedures Referred By Contact Referred To Contact Closed 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 Diagnoses headaches Procedures NEW PATIENT VISIT LEVEL 4 new patient Self [facility] [place] [address] [place] [address] FOR RECORDS PERTAINING TO PATIENTS WHO ARE OR HAVE BEEN ENROLLED IN A CHEMICAL DEPENDENCY/SUBSTANCEABUSE PROGRAM, SOME INFORMATION MAY BE OMITTED. This clinical summary was aggregated from multiple sources. Caution should be exercised in using it in the provision of clinical care. This summary normalizes information from multiple sources, and as a consequence, information in this document may materially change the coding, format and clinical context of patient data. In addition, data may be omitted in some cases. CLINICAL DECISIONS SHOULD BE BASED ON THE PRIMARY CLINICAL RECORDS. [facility] [employer] provides no warranty or guarantee of the accuracy or completeness of information in this document.
== END | disposition home or self-care (01) ==
LOC: PSN 10:17
PROVIDERS: PCP Physician Assistant; Referring Provider Internal Medicine Infectious Disease; Visit Provider Internal Medicine Infectious Disease
DX: R06.00 Dyspnea, unspecified (principal)
CPT/HCPCS: 93005

== ENCOUNTER → 2023-08-15 | Outpatient (CLI) | payer SELFPAY, OTHER ==
--- NOTE | 2023-08-15 08:44 | ECHOCS_ITS ---
Reason For Study: DYSPNEA Procedure This was a 2D Doppler, Color Flow transthoracic echocardiogram. The study was technically difficult. Contrast injection was performed. Due to body habitus. Exam performed in department. Left Ventricle Normal LV size. The estimated ejection fraction is 55 %. No evidence for diastolic dysfunction. No regional wall motion abnormalities noted. Right Ventricle Normal RV size. Normal systolic function. Atria Normal left atrium. Normal right atrium. No doppler evidence for ASD. Mitral Valve There is no mitral valve stenosis. No mitral valve insufficiency. Tricuspid Valve There is no tricuspid stenosis. Trivial tricuspid valve insufficiency. Unable to estimate RV systolic pressure due to insufficient tricuspid regurgitant envelope. Aortic Valve Trisinus/trileaflet aortic valve. There is no aortic stenosis. No aortic valve insufficiency. Pulmonic Valve There is no pulmonic valvular stenosis. No pulmonic valve insufficiency. Great Vessels Normal aortic root. Pericardium/Pleural No pericardial effusion. Medication 22 gauge I.V. with prn adaptor inserted into right arm. Diluted definity 2.0ml given slow IV push to enhance endocardial definition. Performed a rapid injection of agitated mix of 9 cc saline and 1cc air to assess for atrial septal defect. MMode/2D Measurements & Calculations LVIDd: 4.2 cm IVSd: 0.84 cm Ao root diam: 2.6 cm LVIDs: 2.9 cm LVPWd: 0.87 cm RVDd: 3.5 cm FS: 30.8 % LAV(MOD-bp): 38.3 ml LVAd ap4: 30.6 cm2 SV(MOD-sp4): 52.3 ml LAV(MOD-bp) Indexed: 19.7 ml/m2 LVLd ap4: 8.2 cm LAV(MOD-sp2): 37.7 ml EDV(MOD-sp4): 94.1 ml LAV(MOD-sp4): 35.4 ml EDV(sp4-el): 96.3 ml LVAs ap4: 18.5 cm2 LVLs ap4: 6.9 cm ESV(MOD-sp4): 41.8 ml ESV(sp4-el): 42.4 ml EF(MOD-sp4): 55.6 % EF(sp4-el): 55.9 % SV(sp4-el): 53.9 ml LA A4 area: 14.4 cm2 LA dimension(2D): 3.5 cm RA A4 area: 10.1 cm2 TAPSE: 2.2 cm Time Measurements MV dec time: 0.20 sec Doppler Measurements & Calculations MV E max baron: 72.0 cm/sec Lat Peak E' Baron: 15.4 cm/sec Med Peak E' Baron: 9.2 cm/sec MV A max baron: 42.9 cm/sec E/E' lat: 4.7 E/E' med: 7.9 MV E/A: 1.7 MV V2 max: 100.2 cm/sec MV P1/2t max baron: 100.2 cm/sec Ao V2 max: 134.5 cm/sec MV max P.0 mmHg MV P1/2t: 71.6 msec Ao max P.2 mmHg MV V2 mean: 49.4 cm/sec MV dec slope: 410.2 cm/sec2 Ao V2 mean: 93.6 cm/sec MV mean P.2 mmHg MVA(P1/2t): 3.1 cm2 Ao mean P.0 mmHg MV V2 VTI: 25.9 cm Ao V2 VTI: 29.5 cm AV (velocity ratio): 0.86 LV V1 max: 120.4 cm/sec PA V2 max: 119.9 cm/sec TR max baron: 226.5 cm/sec LV V1 max P.8 mmHg PA V2 mean: 78.4 cm/sec TR max P.5 mmHg LV V1 mean P.0 mmHg LV V1 mean: 80.8 cm/sec LV V1 VTI: 25.4 cm ECHO/Echo Complete W/ Contrast Interpretation Summary The estimated ejection fraction is 55 %. No evidence for diastolic dysfunction. Ordering Physician: Dinh Lechuga Referring Physician: Didi Bennett Performed By: Kaitlin Ricardo, RDCS, RVT
== END | disposition home or self-care (01) ==
LOC: CVS 08:42
PROVIDERS: PCP Physician Assistant; Referring Provider Internal Medicine Infectious Disease; Visit Provider Internal Medicine Infectious Disease
DX: R06.00 Dyspnea, unspecified (principal)
CPT/HCPCS: 93306; Q9957; A4216; C8929

== ENCOUNTER → 2024-03-03 | Outpatient (CLI) | payer SELFPAY, OTHER ==
--- NOTE | 2024-03-03 18:50 | CT_ITS ---
HISTORY: Left flank pain, history of UTI. TECHNIQUE: Helically acquired images were obtained of the abdomen and pelvis without oral or IV contrast. A radiation dose optimization technique was used for this scan. 490 images. COMPARISON: 02/14/2023 FINDINGS: LOWER CHEST: Lung bases clear. BOWEL: Bowel including appendix nondilated. No focal pericolonic inflammatory change. PERITONEUM: No significant free fluid. LIVER: Unremarkable. GALLBLADDER/BILIARY TREE: Gallbladder present. SPLEEN/PANCREAS/ADRENAL GLANDS: Nonenlarged. KIDNEYS AND URETERS: No nephrolithiasis or obstructing ureteral calculus on either side. Interval removal of ureteral stents. VESSELS: No abdominal aortic aneurysm. PELVIC ORGANS: Unremarkable. ABDOMINAL WALL: Small fat-containing umbilical hernia. BONES: Intact. CT/Abdomen/Pelvis without Cont IMPRESSION: Negative examination for renal stone. No acute abnormality identified. Electronically Signed: Court Joy MD at 8:43 EDT ,
--- OUTSIDE RECORDS SUMMARY | 2024-03-03 20:06 | XMS RPT_ITS | CCD ---
Author Organization [facility] Care Team Providers Care Research And Evaluation Manager Name Role Phone Unavailable Primary Care Provider Unavailabl e Donald [facility] Sean J Unavailable [facility] Sean J Unavailable [facility] Unavailable Gastroenterology Provider Unavailable Unarach Krause CMA, Anna Unavailable Unavailable Chelsi Graves LPN Unavailable Unavailab le Infectious Disease Provider Unavailable Unav ailable Rheumatolgy Provider Unavailable Unavailable Unavailable Unavailable Sean Bennett PA-C Primary Care Provider Jenny Garcia LPN Unavailable Unavailabl e Unavailable Unavailable COUETTE, SETH I Attending Unavailable BENNETT, SEAN J Referring Unavailable BENNETT, SEAN J Attending Unavailable BENNETT, SEAN J Primary Care Unavailable BENNETT, SEAN J Referring Unavailable BENNETT, SEAN J Primary Care Unavailable BENNETT, SEAN J Referring Unavailable BENNETT, SEAN J Attending Unavailable COUETTE, SETH I Attending Unavailable BENNETT, SEAN J Primary Care Unavailable COUETTE, SETH I Referring Unavailable BENNETT, SEAN J Primary Care Unavailable COUETTE, SETH I Attending Unavailable COUETTE, SETH I Attending Unavailable BENNETT, SEAN J Primary Care Unavailable BENNETT, SEAN J Referring Unavailable BENNETT, SEAN J Primary Care Unavailable COUETTE, SETH I Admitting Unavailable COUETTE, SETH I Referring Unavailable COUETTE, SETH I Attending Unavailable Physical Therapy Provider Unavailable Unavai clover BENNETT, SEAN J Admitting Unavailable BENNETT, SEAN J Attending Unavailable BENNETT, SEAN J Primary Care Unavailable BENNETT, SEAN J Consulting Unavailable PROVIDER, UNKNOWN Consulting Unavailable BENNETT, SEAN J Admitting Unavailable BENNETT, SEAN J Attending Unavailable SEAN BENNETT Primary Care Unavailable SEAN BENNETT Consulting Unavailable PROVIDER, UNKNOWN Consulting Unavailable Medications Current Medications Medication Drug Class(es) Dates Sig (Normalized) Sig (Original) Dlykczcte-Sxiwscqnelm-W it D (GLUCOSAMINE COMPLEX -BOSWELLIA PO) (1 source) Boswellia-Glucos a mine-Vit D (GLUCOSAMINE COMPLEX -BOSWELLIA PO) Take by mouth. 0 Active Cholecalciferol (20 sources) Vitamin D Vitamin D omeprazole 20 mg delayed release oral capsule (19 sources) Proton Pump Inhibitor Start: 12-13-2023 omeprazole 20 mg capsule,delayed release ; 1 (one) capsule daily for 0 days Quantity: 30 {Capsule} Refills: 1 Ordered: 13-Dec-2023 JENI Bennett Start: 13-Dec-2023 Start: 12-13-2023 omeprazole 20 mg capsule,delayed release ; 1 (one) capsule daily for 0 days Quantity: 30 {Capsule} Refills: 1 Ordered: 13-Dec-2023 JENI Bennett Start: 13-Dec-2023 Start: 08-09-2023 omeprazole 20 mg capsule,delayed release ; 1 (one) capsule daily for 0 days Quantity: 30 {Capsule} Refills: 1 Ordered: 09-Aug-2023 JENI Bennett Start: 09-Aug-2023 Start: 06-14-2023 omeprazole 20 mg capsule,delayed release ; 1 (one) capsule daily for 0 days Quantity: 14 {Capsule} Refills: 0 Ordered: 14-Jun-2023 JENI Bennett Start: 14-Jun-2023 Start: 05-17-2023 omeprazole 40 mg capsule,delayed release ; 1 (one) capsule daily for 0 days Quantity: 30 {Capsule} Refills: 0 Ordered: 17-May-2023 ALESSIA Graves Start: 17-May-2023 Probiotic Product (PROBIOMAX 350 DF) PACK (1 source) Probiotic Produc t (PROBIOMAX 350 DF) PACK Take by mouth. 0 Active Completed/Discontinued Medications Medication Drug Class(es) Dates Sig (Normalized) Sig (Original) amoxicillin 875 mg / clavulanate 125 mg oral tablet (20 sources) Penicillin-class Antibacterial Start: 09-13-2021 End: 09-23-2021 take 1 tablet by mouth twice daily Amoxicillin-Pot Clavulanate 875-125 MG Oral Tablet ; 1 (one) Tablet BID for 10 days Quantity: 20 {Tablet} Refills: 0 Ordered: 13-Sep-2021 JENI Bennett Start: 13-Sep-2021 End: 23-Sep-2021 Status: Inactive Azithromycin (14 sources) Macrolide Antimicrobial Start: 06-14-2023 End: 08-09-2023 Zithromax Z-Andry 250 mg tablet ; 2 (two) tablet today and then 1 tablet daily x 4 days for 0 days Quantity: 1 {Packet} Refills: 0 Ordered: 09-Aug-2023 ALESSIA Garcia Start: 14-Jun-2023 End: 09-Aug-2023 Status: Inactive Start: 06-14-2023 Zithromax Z-Pa k 250 mg tablet ; 2 (two) tablet today and then 1 tablet daily x 4 days for 0 days Quantity: 1 {Packet} Refills: 0 Ordered: 14-Jun-2023 JENI Bennett Start: 14-Jun-2023 doxycycline hyclate 100 mg oral tablet (20 sources) Tetracycline-class Drug Start: 05-08-2023 End: 06-05-2023 doxycycline hyclate 100 mg tablet ; 1 (one) tablet BID for 28 days Quantity: 56 {Tablet} Refills: 0 Ordered: 08-May-2023 JENI Bennett Start: 08-May-2023 End: 05-Jun-2023 Status: Inactive DULoxetine 30 mg delayed release oral capsule (10 sources) Serotonin and Norepinephrine Reuptake Inhibitor Start: 02-28-2021 take 1 capsule by mouth once daily DULoxetine (CYMBALTA) 60 mg capsule Take 1 capsule by mouth once daily. Start after completing 30mg course. 90 capsule 1 02/28/2021 Active Start: 02-28-2021 take 1 capsule by mo [facility] once daily DULoxetine (CYMBALTA) 30 mg capsule Take 1 capsule by mouth once daily. 14 capsule 0 02/28/2021 Active Comment on above: Take 1 capsule by mo ut once daily. Take 1 capsule by mo ut once daily. Start after completing 30mg course. FA/mv,Ca,iron,min/lyco pene/lut (MULTIVITAL ORAL) (1 source) take 1 scoop(s) by mouth once daily FA/mv,Ca,iron,min/lyc opene/lut (MULTIVITAL ORAL) Take 1 Scoop by mouth once daily. 0 Active Comment on above: Take 1 Scoop by mout h once daily. ondansetron 8 mg disintegrating oral tablet (1 source) Serotonin-3 Receptor Antagonist Start: 02-29-20 take 1 tablet by mouth every eight hours as needed ondansetron orally disintegrating (ZOFRAN ODT) 8 mg disintegrating tablet Take 1 tablet by mouth every 8 hours as needed for nausea/vomiting. Dissolve on tongue. 60 tablet 2 02/28/2021 Active Comment on above: Take 1 tablet by nicolas th every 8 hours as needed for nausea/vomiting. Dissolve on tongue. rizatriptan 10 mg oral tablet (1 source) Serotonin-1b and Serotonin-1d Receptor Agonist Start: 02-29-20 take 1 tablet by mouth every two hours as needed for headache rizatriptan (MAXALT) 10 mg tablet Take 1 tablet by mouth as needed (at onset of headache. May repeat after 2 hours.). Do not exceed 20 mg per day. 10 tablet 6 02/28/2021 Active Comment on above: Take 1 tablet by nicolas th as needed (at onset of headache. May repeat after 2 hours.). Do not exceed 20 mg per day. Problems Active Problems Problem Classification Problem Date Documented Da te Episodic/Chronic Abdominal pain (20 sources) Abdominal pain; Translations: [Unspecified abdominal pain] 05-17-2023 Episodic Allergic reactions (20 sources) Urticaria; Translations: [Urticaria, unspecified] 05-02-2023 Episodic Diseases of white blood cells (20 sources) Leukocytosis; Translations: [Elevated white blood cell count, unspecified] 05-02-2023 Chronic Esophageal disorders (20 sources) Gastroesophageal reflux disease; Translations: [Gastro-esophageal reflux disease without esophagitis] 06-14-2023 Chronic Fever of unknown origin (20 sources) Fever; Translations: [Fever, unspecified] 05-02-2023 Episodic Fluid and electrolyte disorders (20 sources) Hypokalemia; Translations: [Hypokalemia] 05-02-2023 Episodic Headache; including migraine (1 source) Refractory migraine without aura; Translations: [Chronic migraine without aura, intractable, with status migrainosus] Chronic Immunizations and screening for infectious disease (20 sources) Bacterial antibody present; Translations: [Other specified abnormal immunological findings in serum] 05-08-2023 Episodic Nutritional deficiencies (20 sources) Vitamin D deficiency; Translations: [Vitamin D deficiency, unspecified] 05-02-2023 Chronic Open wounds of head; neck; and trunk (20 sources) Open wound; Translations: [Open wound(s) (multiple) of unspecified site(s), without mention of complication] 05-02-2023 Episodic Other connective tissue disease (1 source) Fibromyalgia; Translations: [Fibromyalgia] 06-10-2023 Episodic Other connective tissue disease (1 source) Fibromyalgia; Translations: [Fibromyalgia] Onset: Episodic Other endocrine disorders (20 sources) Hyperprolactinemia; Translations: [Hyperprolactinemia] 05-02-2023 Chronic Other gastrointestinal disorders (20 sources) Diarrhea; Translations: [Diarrhea, unspecified] 06-14-2023 Episodic Other gastrointestinal disorders (1 source) Diarrhea, unspecified; Translations: [Diarrhea, unspecified] Onset: Episodic Other non-traumatic joint disorders (20 sources) Multiple joint pain; Translations: [Pain in unspecified joint] 05-02-2023 Episodic Other non-traumatic joint disorders (1 source) Pain in unspecified joint; Translations: [Pain in unspecified joint] Onset: Episodic Other non-traumatic joint disorders (4 sources) Pain in right shoulder; Translations: [Pain in joint, shoulder region] 12-13-2023 Episodic Other skin disorders (1 source) Rash and other nonspecific skin eruption; Translations: [Rash and other nonspecific skin eruption] Onset: Episodic Regional enteritis and ulcerative colitis (20 sources) Crohn's disease; Translations: [Crohn's disease, unspecified, without complications] 05-02-2023 Chronic Residual codes; unclassified (20 sources) H/O: neoplasm; Translations: [Other specified postprocedural states] 02-19-2022 Episodic Spondylosis; intervertebral disc disorders; other back problems (1 source) Neck pain; Translations: [Cervicalgia] Episodic Thyroid disorders (20 sources) Thyroid nodule; Translations: [Nontoxic single thyroid nodule] 05-02-2023 Chronic Unclassified (16 sources) Follow up consultation - The patient [...] times). Pt was treated for Lyme in [place] with their Lyme program (last would have [...] urticaria and hypokalemia.Scheduled to go back to [place] Jun 30.Had ovarian cyst removed by Karishma Good - has endometriosis and said that in order to remove completely she would need hysterectomy vs OCP and she doesn't want to do OCP. Does have a lot of pain with menses. 05-02-2023 Unclassified (16 sources) [ADDITIONAL REASON] Transition into care - The patient is transitioning into care from an emergency room and a summary of care was reviewed. 05-02-2023 Unclassified (20 sources) Swelling of Left side of face [...] - she says she went down to [place] and followed up with the surgeon and everything healed up. 11-01-2021 Unclassified (5 sources) Transition into care - The patient is transitioning into care from an emergency room and a summary of care was reviewed. 05-02-2023 Unclassified (5 sources) [ADDITIONAL REASON] Follow up consultation - [...] times). Pt was treated for Lyme in [place] with their Lyme program (last would have [...] urticaria and hypokalemia.Scheduled to go back to [place] Jun 30.Had ovarian cyst removed by Karishma Good - has endometriosis and said that in order to remove completely she would need hysterectomy vs OCP and she doesn't want to do OCP. Does have a lot of pain with menses. 05-02-2023 Past or Other Problems Problem Classification Problem Date Documented Da te Episodic/Chronic Unclassified (20 sources) suture removal - Pt is here to have 2 sutures removed from posterior aspect of left ear lobe. Pt had surgery due to hearing loss - details are unknown but was to have the sutures removed today. Doing well with no concerns. 02-19-2022 Unclassified (20 sources) follow from [place] - Pt had went to [place] and had large lesion (lipoma) removed from her head on July 12. At about 2 weeks she had an infection. Since then she has been having the [facility] burn team manage. Currently only putting [employer] [...] diagnosed and treated for Lyme and Shanique calderon virus. Prolactin level was high - was treated with cabergoline and repeat level was normal but then it was 55 in July. 09-13-2021 Unclassified (14 sources) Fever - The onset of the fever has been gradual , and it has been occurring in an intermittent pattern for 9 days. The course has been recurrent. The patient has had a temperature of up to 100 F. The fever is relieved by analgesics. There has been associated fatigue and headache. Note for Fever : Pt states she is dealing with low grade fevers 99-100F for about 9 days now. Comes and goes, not constant. Also has complains of elevated HR at times.No antipyretics taken today. No cold symptoms.Had been at a .Has had diarrhea but no vomiting or abd pain. Didn't start until after the fever had already started. 06-14-2023 Unclassified (7 sources) Fever - The onset of the fever has been acute , and it has been occurring in a persistent pattern for 1 week. The course has been recurrent. The patient has had a temperature of up to 100 F. There has been associated headache. Note for Fever : Patient states she has been dealing with low grade fevers for about a week now. States they are normally 99-100. States she talked with a clinic in [place] and they suggested she be checked out due to dx of lyme disease last month.No recent cold symptoms.No urinary symptoms.No GI symptoms - had colonoscopy in July in [place]. Hasn't need to take any anti-pyrectics. Still having heartburn. 08-09-2023 Unclassified (1 source) Follow up heartburn - Patient is here for a refill for omeprazole. States it has worked well for her heartburn. Wants to ask about a prescription she got from [place] as well. 12-13-2023 Unclassified (2 sources) Follow up heartburn - Patient is here for a refill for omeprazole. States it has worked well for her heartburn. She has been off of it for awhile now and symptoms have returned. Had endoscopy in [place] - per patient it was normal.Wants to ask about a referral she got from [place] as well. 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 No Panel Informationon 12-12 [facility] [employer] assistant.; [employer]. [facility] [employer]ER[employer] assistant.; [employer]. No Panel Informationon 08-14 [employer].; [employer]. [employer].; [employer]. C-REACTIVE PROTEINon 024 CRP [Mass/Vol] 8.9 mg/L High <8.0 [facility] Comment on above: Performed By: #### 4 418, 249, 8593, 81083, 6399 #### [facility] [place] [address] Mixer Helper: Kaz Cannon MD CBC (INCLUDES DIFF/PLT)on Basophils (Bld) [#/Vol] 0.037 10*3/uL Normal 0-200 [facility] Comment on above: Performed By: #### 4 418, 249, 8593, 56814, 6399 #### [facility] [place] [address] Mixer Helper: Kaz Cannon MD Basophils/100 WBC (Bld) 0.6 % Normal [facility] Comment on above: Performed By: #### 4 418, 249, 8593, 72489, 6399 #### [facility] [place] [address] Mixer Helper: Kaz Cannon MD Eosinophils (Bld) [#/Vol] 0.093 10*3/uL Normal 15-500 [facility] Comment on above: Performed By: #### 4 418, 249, 8593, 65525, 6399 #### [facility] [place] [address] Mixer Helper: Kaz Cannon MD Eosinophils/100 WBC (Bld) 1.5 % Normal [facility] Comment on above: Performed By: #### 4 418, 249, 8593, 28638, 6399 #### [facility] of [place] [address] Mixer Helper: Kaz Cannon MD Erythrocyte distribution width (RBC) [Ratio] 14.6 % Normal 11.0-15.0 [facility] Comment on above: Performed By: #### 4 418, 249, 8593, 60198, 6399 #### [facility] of [place] [address] Mixer Helper: Kaz Cannon MD Hematocrit (Bld) [Volume fraction] 41.8 % Normal 35.0-45.0 [facility] Comment on above: Performed By: #### 4 418, 249, 8593, 85999, 6399 #### [facility] of [place] [address] Mixer Helper: Kaz Cannon MD Hemoglobin (Bld) [Mass/Vol] 13.5 g/dL Normal 11.7-15.5 [facility] Comment on above: Performed By: #### 4 418, 249, 8593, 91667, 6399 #### [facility] of [place] [address] Mixer Helper: Kaz Cannon MD Lymphocytes (Bld) [#/Vol] 2.114 10*3/uL Normal 850-3900 [facility] Comment on above: Performed By: #### 4 418, 249, 8593, 40703, 6399 #### [facility] of [place] [address] Mixer Helper: Kaz Cannon MD Lymphocytes/100 WBC (Bld) 34.1 % Normal [facility] Comment on above: Performed By: #### 4 418, 249, 8593, 95341, 6399 #### [facility] of [place] [address] Mixer Helper: Kaz Cannon MD MCH (RBC) [Entitic mass] 26.5 pg Low 27.0-33.0 [facility] Comment on above: Performed By: #### 4 418, 249, 8593, 37827, 6399 #### [facility] of [place] [address] Mixer Helper: Kaz Cannon MD MCHC (RBC) [Mass/Vol] 32.3 g/dL Normal 32.0-36.0 [facility] Comment on above: Performed By: #### 4 418, 249, 8593, 37055, 6399 #### [facility] of [place] [address] Mixer Helper: Kaz Cannon MD MCV (RBC) [Entitic vol] 82.1 fL Normal 80.0-100.0 [facility] Comment on above: Performed By: #### 4 418, 249, 8593, 73098, 6399 #### [facility] of [place] [address] Mixer Helper: Kaz Cannon MD Monocytes (Bld) [#/Vol] 0.403 10*3/uL Normal 200-950 [facility] Comment on above: Performed By: #### 4 418, 249, 8593, 40236, 6399 #### [facility] of [place] [address] Mixer Helper: Kaz Cannon MD Monocytes/100 WBC (Bld) 6.5 % Normal [facility] Comment on above: Performed By: #### 4 418, 249, 8593, 57513, 6399 #### [facility] of [place] [address] Mixer Helper: Kaz Cannon MD Neutrophils (Bld) [#/Vol] 3.553 10*3/uL Normal 1611-6459 [facility] Comment on above: Performed By: #### 4 418, 249, 8593, 20462, 6399 #### [facility] of [place] [address] Mixer Helper: Kaz Cannon MD Neutrophils/100 WBC (Bld) 57.3 % Normal [facility] Comment on above: Performed By: #### 4 418, 249, 8593, 80667, 6399 #### [facility] of [place] [address] Mixer Helper: Kaz Cannon MD Platelet mean volume (Bld) [Entitic vol] 9.1 fL Normal 7.5-12.5 [facility] Comment on above: Performed By: #### 4 418, 249, 8593, 49121, 6399 #### [facility] of [address], [address] [place] [address] Mixer Helper: Kaz Cannon MD Platelets (Bld) [#/Vol] 298 10*3/uL Normal 140-400 [facility] Comment on above: Performed By: #### 4 418, 249, 8593, 49221, 6399 #### [facility] of [place] [address] Mixer Helper: Kaz Cannon MD RBC (Bld) [#/Vol] 5.09 10*6/uL Normal 3.80-5.10 [facility] Comment on above: Performed By: #### 4 418, 249, 8593, 58350, 6399 #### [facility] of [place] [address] Mixer Helper: Kaz Cannon MD WBC (Bld) [#/Vol] 6.2 10*3/uL Normal 3.8-10.8 [facility] Comment on above: Performed By: #### 4 418, 249, 8593, 32050, 6399 #### [facility] of [place] [address] Mixer Helper: Kaz Cannon MD SED RATE BY STEPHANIE Graf 08-12-2023 SED RATE BY STEPHANIE MCADAMS 2 mm/h Normal < OR = 20 [facility] Comment on above: Performed By: #### 6 399, 809 #### [facility] of [place] [address] Mixer Helper: Kaz Cannon MD Laboratory - Chemistry and C hemistry - challengeon 08-09-2023 CRP [Mass/Vol] 8.9 mg/L Abnormal [facility].; [employer] [facility]. Laboratory - Hematology and Cell countson 08-09-2023 Basophils (Bld) [#/Vol] 0.037 10*3/uL Normal 0 - 200 {cells/uL} [facility], [facility].; [facility] [facility] Basophils/100 WBC (Bld) 0.6 % Normal [facility] Services[facility].; [place] [employer], [employer]. Eosinophils (Bld) [#/Vol] 0.093 10*3/uL Normal 15 - 500 {cells/uL} [facility].; [place] [employer], [employer]. Eosinophils/100 WBC (Bld) 1.5 % Normal [facility].; [employer], [employer] Erythrocyte distribution width (RBC) [Ratio] 14.6 % Normal 11.0 - 15.0 % [facility].; [place] [employer], [employer]. Hematocrit (Bld) [Volume fraction] 41.8 % Normal 35.0 - 45.0 % [facility].; [employer], [employer]. Hemoglobin (Bld) [Mass/Vol] 13.5 g/dL Normal 11.7 - 15.5 g/dL [facility].; [employer], [employer]. Lymphocytes (Bld) [#/Vol] 2.114 10*3/uL Normal 850 - 3900 {cells/uL} [facility].; [employer]. Lymphocytes/100 WBC (Bld) 34.1 % Normal [facility].; [employer], [employer]. MCH (RBC) [Entitic mass] 26.5 pg Abnormal 27.0 - 33.0 pg [facility] SHERPA assistant.; [employer], [employer]. MCHC (RBC) [Mass/Vol] 32.3 g/dL Normal 32.0 - 36.0 g/dL [facility] [facility], [employer].; [employer], [employer]. MCV (RBC) [Entitic vol] 82.1 fL Normal 80.0 - 100.0 fL [facility] [employer] [facility] Monocytes (Bld) [#/Vol] 0.403 10*3/uL Normal 200 - 950 {cells/uL} [facility], [employer] Monocytes/100 WBC (Bld) 6.5 % Normal [facility] [employer] Neutrophils (Bld) [#/Vol] 3.553 10*3/uL Normal 1500 - 7800 {cells/uL} [employer] Neutrophils/100 WBC (Bld) 57.3 % Normal [facility] [employer] Platelet mean volume (Bld) [Entitic vol] 9.1 fL Normal 7.5 - 12.5 fL [facility] [employer] Platelets (Bld) [#/Vol] 298 10*3/uL Normal 140 - 400 [place] [employer], [employer].; [employer] RBC (Bld) [#/Vol] 5.09 10*6/uL Normal 3.80 - 5.1 0 {Million/uL} [employer] WBC (Bld) [#/Vol] 6.2 10*3/uL Normal 3.8 - 10.8 [facility] [employer] No Panel Informationon 08-08 [facility] [employer] SED RATE BY MODIFIED WESTERGREN 2 mm/h Normal [facility] [employer] [facility].; [employer], [employer]. No Panel Informationon 06-25 [employer] No Panel Informationon 06-23 [employer], [employer].; [employer], [employer] C. DIFFICILE PCRon C. DIFFICILE PCR C. DIFFICILE PCR Negative Negative C DIFF 027 PCR Presumptive Negative Presumptive Negative Normal Presumptive Negative [facility] Comment on above: Performed By: #### C DIFP #### [facility] [address] [place] [address] GIARDIA ANTIGENon 06-21-2023 Giardia Antigen Not detected Normal [facility].; [facility]. Comment on above: Performed By: #### 4 [id number] #### RASHIDA CASTELLANOS (2012) [facility] [address] [place] [address] [facility]-21-2023 TEST RESULT COMMENT [facility] Comment on above: Order Comment: Perfo rmed At: 01 [facility] [place], [place] [id number] Vincent PhD Ph:[phone] Result Comment: Test Ordered: [id number] Ova + Parasite Exam Ova + Parasite Exam Note: 01 Final report These results were obtained using wet preparation(s) and trichrome stained smear. This test does not include testing for Cryptosporidium parvum, Cyclospora, or Microsporidia. Result 1 Comment 01 No ova, cysts, or parasites seen. One negative specimen does not rule out the possibility of a parasitic infection. Performed By: #### 4 [id number] #### RASHIDA CASTELLANOS (2012) [facility] [address] [place] [address] STOOL CULTURE [[id number]]on Stool culture NO SALMONELLA, SHIGE LLA, OR YERSINIA ISOLATED NO E. COLI 0157:H7 ISOLATED UNABLE TO EVALUATE FOR CAMPYLOBACTER DUE TO UNAVAILABILITY OF REAGENT [facility] Comment on above: Performed By: #### 4 [id number] #### RASHIDA CASTELLANOS (2012) [facility] [address] [place] [address] CBC AND DIFFERENTIALon 06-20 ABSOLUTE BASOPHIL 0.0 x10*3/uL Normal 0.0-0.1 [facility] Comment on above: Performed By: #### 4 [id number] #### RASHIDA CASTELLANOS (2012) [facility] [address] [place] [address] ABSOLUTE EOSINOPHIL 0.1 x10*3/uL Normal 0.1-0.3 [facility] Comment on above: Performed By: #### 4 [id number] #### RASHIDA CASTELLANOS (2012) [facility] [address] [place] [address] ABSOLUTE IMMATURE GRANULOCYTES 0.0 x10*3/uL Normal 0.0-0.1 [facility] Comment on above: Performed By: #### 4 [id number] #### RASHIDA CASTELLANOS (2012) [facility] [address] [place] [address] ABSOLUTE LYMPH 3.0 x10*3/uL Normal 1.2-3.3 [facility] Comment on above: Performed By: #### 4 [id number] #### RASHIDA CASTELLANOS (2012) [facility] [address] [place] [address] ABSOLUTE MONO 0.5 x10*3/uL Normal 0.2-0.6 [facility] Comment on above: Performed By: #### 4 [id number] #### RASHIDA CASTELLANOS (2012) [facility] [address] [place] [address] ABSOLUTE NEUTROPHIL 4.7 x10*3/uL Normal 2.4-6.6 [facility] Comment on above: Performed By: #### 4 [id number] #### RASHIDA CASTELLANOS (2012) [facility] [address] [place] [address] Basophils/100 WBC (Bld) 0.5 % Normal 0.0 - 2.0 % [facility].; [facility]. Comment on above: Performed By: #### 4 [id number] #### RASHIDA CASTELLANOS (2012) [facility] [address] [place] [address] Eosinophils/100 WBC (Bld) 1.6 % Normal 0.0 - 6.0 % [facility], [facility].; [facility], [facility]. Comment on above: Performed By: #### 4 [id number] #### RASHIDA CASTELLANOS (2012) [facility] [address] [place] [address] Erythrocyte distribution width (RBC) [Ratio] 13.7 % Normal 12.0 - 15.6 % [facility].; [facility], [facility]. Comment on above: Performed By: #### 4 [id number] #### RASHIDA CASTELLANOS (2012) [facility] [address] [place] [address] Hematocrit (Bld) [Volume fraction] 41.3 % Normal 34 - 44 % [facility].; [facility]. Comment on above: Performed By: #### 4 [id number] #### RASHIDA CASTELLANOS (2012) [facility] [address] [place] [address] Hemoglobin (Bld) [Mass/Vol] 13.3 g/dL Normal 11.5 - 14.2 g/dL [facility].; [facility], [facility] Comment on above: Performed By: #### 4 [id number] #### RASHIDA CASTELLANOS (2012) [facility] [address] [place] [address] Immature granulocytes/100 WBC (Bld) 0.1 % Normal [facility] Comment on above: Performed By: #### 4 [id number] #### RASHIDA CASTELLANOS (2012) [facility] [address] [place] [address] Lymphocytes/100 WBC (Bld) 36.0 % Normal 20.0 - 45.0 % [facility]; [facility]. Comment on above: Performed By: #### 4 [id number] #### RASHIDA CASTELLANOS (2012) [facility] [address] [place] [address] MCH (RBC) [Entitic mass] 25.9 pg Abnormal 27 - 33 pg [facility].; [facility], [facility]. Comment on above: Performed By: #### 4 [id number] #### RASHIDA CASTELLANOS (2012) [facility] [address] [place] [address] MCHC (RBC) [Mass/Vol] 32.2 g/dL Normal 32 - 36 g/dL [facility].; [facility], [facility]. Comment on above: Performed By: #### 4 [id number] #### RASHIDA CASTELLANOS (2012) [facility] [address] [place] [address] MCV (RBC) [Entitic vol] 80.4 fL Normal 80 - 99 fL [facility].; [facility], [facility] Comment on above: Performed By: #### 4 [id number] #### RASHIDA CASTELLANOS (2012) [facility] [address] [place] [address] Monocytes/100 WBC (Bld) 5.6 % Normal 2.0 - 13.0 % [facility]; [facility] Comment on above: Performed By: #### 4 [id number] #### RASHIDA CASTELLANOS (2012) [facility] [address] [place] [address] Neutrophils/100 WBC (Bld) 56.2 % Normal 46 - 76 % [facility]; [facility] Comment on above: Performed By: #### 4 [id number] #### RASHIDA CASTELLANOS (2012) [facility] [address] [place] [address] PLATELET COUNT 308 x10*3/uL Normal 150-400 [facility] Comment on above: Performed By: #### 4 [id number] #### RASHIDA CASTELLANOS (2012) [facility] [address] [place] [address] RED BLOOD CELL COUNT 5.14 x10*6/uL Normal 3.60-5.[address] [facility] Comment on above: Performed By: #### 4 [id number] #### RASHIDA CASTELLANOS (2012) [facility] [address] [place] [address] WHITE BLOOD CELLS 8.3 x10*3/uL Normal 4.3-10.3 [facility] Comment on above: Performed By: #### 4 [id number] #### RASHIDA CASTELLANOS (2012) [facility] [address] [place] [address] COMPREHENSIVE METABOLIC PANE [place] 06-20-2023 Albumin [Mass/Vol] 3.9 g/dL Normal 3.5 - 5.0 g/dL [facility].; [facility] Comment on above: Performed By: #### 4 [id number] #### RASHIDA CASTELLANOS (2012) [facility] [address] [place] [address] ALK PHOS 76 U/L Normal 24-126 [facility] Comment on above: Performed By: #### 4 [id number] #### RASHIDA CASTELLANOS (2012) [facility] [address] [place] [address] ALT [Catalytic activity/Vol] 27 U/L Normal 4-35 [facility] Comment on above: Performed By: #### 4 [id number] #### RASHIDA CASTELLANOS (2012) [facility] [address] [place] [address] AST [Catalytic activity/Vol] 24 U/L Normal 3-47 [facility] Comment on above: Performed By: #### 4 [id number] #### RASHIDA CASTELLANOS (2012) [facility] [address] [place] [address] Bilirubin [Mass/Vol] 0.4 mg/dL Normal 0.3 - 1.0 mg/dL [facility].; [facility]. Comment on above: Performed By: #### 4 [id number] #### RASHIDA CASTELLANOS (2012) [facility] [address] [place] [address] Calcium [Mass/Vol] 8.9 mg/dL Normal 8.4 - 10. 6 mg/dL [facility].; [facility]. Comment on above: Performed By: #### 4 [id number] #### RASHIDA CASTELLANOS (2012) [facility] [address] [place] [address] Chloride [Moles/Vol] 105 mmol/L Normal 98 - 110 mmol/L [facility].; [facility]. Comment on above: Performed By: #### 4 [id number] #### RASHIDA CASTELLANOS (2012) [facility] [address] [place] [address] CO2 [Moles/Vol] 25 mmol/L Normal 22-30 [facility] Comment on above: Performed By: #### 4 [id number] #### RASHIDA CASTELLANOS (2012) [facility] [address] [place] [address] Creatinine [Mass/Vol] 0.68 mg/dL Normal 0.6 - 1.4 mg/dL [facility].; [facility]. Comment on above: Performed By: #### 4 [id number] #### RASHIDA CASTELLANOS (2012) [facility] [address] [place] [address] GLOMERULAR FILTRATION RATE ML/MIN/1.73 SQ M.PREDICTED 117.4 mL/min/1.73m*2 Normal >=60.0 [facility] Comment on above: Result Comment: eGFR calculation based on the Chronic Kidney Disease Epidemiology Collaboration (CKD-EPI) equation refit without adjustment for race. Categories in Chronic Kidney Disease (CKD) Category: GFR(mL/min/1.73m^2) Interpretation: G1* 90 or greater Normal or high G2* 60-89 Mild decrease G3a 45-59 Mild to moderate decrease G3b 30-44 Moderate to severe decrease G4 15-29 Severe decrease G5 14 or less Kidney failure *G1&G2: In the absence of evidence of kidney damage, neither GFR category G1 nor G2 fulfill the criteria for CKD Kidney Int Suppl.2013;3:1-150 Performed By: #### 4 [id number] #### RASHIDA CASTELLANOS (2012) [facility] [address] [place] [address] Glucose [Mass/Vol] 97 mg/dL Normal 75 - 105 mg/dL [facility].; [facility]. Comment on above: Performed By: #### 4 [id number] #### RASHIDA CASTELLANOS (2012) [facility] [address] [facility] [place] [address] Potassium [Moles/Vol] 4.4 mmol/L Normal 3.50 - 5.00 meq/L [facility].; [facility]. Comment on above: Performed By: #### 4 [id number] #### RASHIDA CASTELLANOS (2012) [facility] [address] [facility] [place] [address] Protein [Mass/Vol] 7.0 g/dL Normal 6.4 - 8.2 g/dL [facility].; [facility]. Comment on above: Performed By: #### 4 [id number] #### RASHIDA CASTELLANOS (2012) [facility] [address] [facility] [place] [address] Sodium [Moles/Vol] 138 mmol/L Normal 136 - 145 mmol/L [facility] [email or web address], [employer]. Comment on above: Performed By: #### 4 [id number] #### RASHIDA CASTELLANOS (2012) [facility] [address] [place] [address] Urea nitrogen [Mass/Vol] 13 mg/dL Normal 7.0 - 20.0 mg/dL [facility], [employer].; [employer] Comment on above: Performed By: #### 4 [id number] #### RASHIDA CASTELLANOS (2012) [facility] [address] [place] [address] Laboratory - Chemistry and C hemistry - challengeon 06-20-2023 Albumin/Globulin [Mass ratio] - Normal [facility] [email or web address] ALP [Catalytic activity/Vol] 76 U/L Normal 50 - 136 U/L [facility] [employer], [facility].; [employer] ALT [Catalytic activity/Vol] 24 mmol/L Normal 12 - 49 mmol/L [place] [employer], [employer].; [employer] AST [Catalytic activity/Vol] 27 U/L Normal 15 - 37 U/L [place] [employer], [employer].; [employer] CO2 [Moles/Vol] 25 {austin/L} Normal 22.0 - 32.0 {austin/L} [employer], [employer].; [employer] Globulin (S) [Mass/Vol] - Normal 1.5 - 3.8 g/dL [place] [employer], [facility].; [employer] Urea nitrogen/Creatinin e [Mass ratio] - Normal 0 - 30 [facility] [employer].; [employer], [employer]. Laboratory - Hematology and Cell countson 06-20-2023 Basophils/100 WBC (Bld) 0.0 % Normal 0.00 - 0.10 [employer] Eosinophils/100 WBC (Bld) 0.1 % Normal 0.00 - 0.50 [place], [employer].; [employer] Lymphocytes/100 WBC (Bld) 3.0 % Abnormal [employer]. Monocytes/100 WBC (Bld) 0.5 % Normal [facility]; [employer] Platelet mean volume (Bld) [Entitic vol] - Normal 6.6 - 10.5 fL [facility].; [employer]. Platelets (Bld) [#/Vol] 308 10*9{Cells}/L Normal 150 - 450 10*9{Cells}/L [employer].; [employer]. RBC (Bld) [#/Vol] 5.14 10*6/uL Normal 4.10 - 5.3 0 10*6/uL [employer].; [employer]. WBC (Bld) [#/Vol] 8.3 10*9{Cells}/L Normal 4.5 - 10.8 10*9{Cells}/L [employer].; [employer]. No Panel Informationon 06-20 GFR 117.4 Normal [employer]; [employer]. GFR2 - Normal [employer]; [employer] NEUTROPHILS 4.7 10*6/uL Normal 1.5 - 7.1 10*6/uL [employer].; [employer]. Laboratory - Microbiology an d Antimicrobial susceptibilityon 06-19-2023 C. difficile glutamate dehydrogenase Ql (Stl) Negitive Normal [employer]; [employer] XR FOOT LEFT MIN 3 VIEW (ROU RIVERA)on 06-10-2023 XR FOOT LEFT MIN 3 VIEW (ROUTINE) EXAM: XR FOOT LEFT MIN 3 VIEW (ROUTINE), XR FOOT RIGHT MIN 3 VIEW (ROUTINE) HISTORY: Pain in unspecified joint:Fibromyalgia: COMPARISON: None. TECHNIQUE: 3 views of each foot FINDINGS: Left foot: There is no fracture or dislocation. There are no lytic or blastic bony lesions. There is normal mineralization. Mild osteophytic changes are noted. These are most pronounced at the tarsometatarsal joints. Right foot: There is no fracture or dislocation. There are no lytic or blastic bony lesions. There is normal mineralization. The soft tissues appear unremarkable. There is no evidence of significant arthropathy. IMPRESSION: No evidence of fracture. Mild left foot DJD. Polyarthralgia, Fibromyalgia Normal [employer] XR FOOT RIGHT MIN 3 VIEW (RO UTINE)on 06-10-2023 XR FOOT RIGHT MIN 3 VIEW (ROUTINE) EXAM: XR FOOT LEFT MIN 3 VIEW (ROUTINE), XR FOOT RIGHT MIN 3 VIEW (ROUTINE) HISTORY: Pain in unspecified joint:Fibromyalgia: COMPARISON: None. TECHNIQUE: 3 views of each foot FINDINGS: Left foot: There is no fracture or dislocation. There are no lytic or blastic bony lesions. There is normal mineralization. Mild osteophytic changes are noted. These are most pronounced at the tarsometatarsal joints. Right foot: There is no fracture or dislocation. There are no lytic or blastic bony lesions. There is normal mineralization. The soft tissues appear unremarkable. There is no evidence of significant arthropathy. IMPRESSION: No evidence of fracture. Mild left foot DJD. Polyarthralgia, Fibromyalgia Normal [employer] XR HAND BILATERAL 2 VIEW (AR THRITIS)on 06-10-2023 XR HAND BILATERAL 2 VIEW (ARTHRITIS) EXAM: XR HAND BILATERAL 2 VIEW (ARTHRITIS) HISTORY: Pain in unspecified joint: Fibromyalgia: COMPARISON: None. FINDINGS/ No acute fracture or dislocation. No significant degeneration. No inflammatory arthropathy. Polyarthralgia, Fibromyalgia Normal [employer] C-REACTIVE PROTEIN (INFLAMMA TORY)on 05-29-2023 CRP [Mass/Vol] 11.6 mg/L High <=9.9 [employer] Comment on above: Performed By: #### 4 [id number], [id number], [id number], [id number], [id number], 14813064, 15910400, 82709920, 30997580, 54829328, 52498635, 85373639, [id number] #### [place] [address] C3 COMPLEMENTon 05-29-2023 C3 COMPLEMENT 167.0 mg/dL High 88.0-165.0 [employer] Comment on above: Performed By: #### 4 [id number] #### RASHIDA CASTELLANOS (2013) [facility] [address] [place] [address] C4 COMPLEMENTon 05-29-2023 C4 COMPLEMENT 34.9 mg/dL Normal 14.0-44.0 [facility] Comment on above: Performed By: #### 4 [id number] #### RASHIDA CASTELLANOS (2012) [facility] [address] [place] [address] CBC AND DIFFERENTIALon 05-29 ABSOLUTE BASOPHIL 0.1 x10*3/uL Normal 0.0-0.1 [facility] Comment on above: Performed By: #### 4 [id number], [id number] #### [address] ABSOLUTE EOSINOPHIL 0.2 x10*3/uL Normal 0.1-0.3 [facility] Comment on above: Performed By: #### 4 [id number], [id number] #### [address] ABSOLUTE IMMATURE GRANULOCYTES 0.0 x10*3/uL Normal 0.0-0.1 [facility] Comment on above: Performed By: #### 4 [id number], [id number] #### [address] ABSOLUTE LYMPH 2.9 x10*3/uL Normal 1.2-3.3 [facility] Comment on above: Performed By: #### 4 [id number], [id number] #### [address] ABSOLUTE MONO 0.5 x10*3/uL Normal 0.2-0.6 [facility] Comment on above: Performed By: #### 4 [id number], [id number] #### [address] ABSOLUTE NEUTROPHIL 5.0 x10*3/uL Normal 2.4-6.6 [facility] Comment on above: Performed By: #### 4 [id number], [id number] #### [place] [address] [place] Basophils/100 WBC (Bld) 0.6 % Normal [facility] Comment on above: Performed By: #### 4 [id number], [id number] #### [place] [address] [place] Eosinophils/100 WBC (Bld) 2.1 % Normal [facility] Comment on above: Performed By: #### 4 [id number], [id number] #### [address] Erythrocyte distribution width (RBC) [Ratio] 13.8 % Normal 11.5-14.5 [facility] Comment on above: Performed By: #### 4 [id number], [id number] #### [address] Hematocrit (Bld) [Volume fraction] 42.9 % Normal 33.6-46.8 [facility] Comment on above: Performed By: #### 4 [id number], [id number] #### [address] Hemoglobin (Bld) [Mass/Vol] 13.7 g/dL Normal 11.7-15.8 [facility] Comment on above: Performed By: #### 4 [id number], [id number] #### [address] Immature granulocytes/100 WBC (Bld) 0.3 % Normal [facility] Comment on above: Performed By: #### 4 [id number], [id number] #### [address] Lymphocytes/100 WBC (Bld) 33.8 % Normal [facility] Comment on above: Performed By: #### 4 0591140, [id number] #### [address] MCH (RBC) [Entitic mass] 25.8 pg Low 27.5-32.3 [facility] Comment on above: Performed By: #### 4 [id number], [id number] #### [address] MCHC (RBC) [Mass/Vol] 31.9 g/dL Normal 30.7-35.5 [facility] Comment on above: Performed By: #### 4 [id number], [id number] #### [address] MCV (RBC) [Entitic vol] 80.9 fL Normal 80.2-99 [facility] Comment on above: Performed By: #### 4 [id number], [id number] #### [address] Monocytes/100 WBC (Bld) 5.9 % Normal [facility] Comment on above: Performed By: #### 4 [id number], [id number] #### [address] Neutrophils/100 WBC (Bld) 57.3 % Normal [facility] Comment on above: Performed By: #### 4 8494700, [id number] #### [address] NUCLEATED RED BLOOD CELLS AUTO 0.0 % Normal 0.0-1.0 [facility] Comment on above: Performed By: #### 4 [id number], [id number] #### [address] PLATELET COUNT 324 x10*3/uL Normal 150-400 [facility] Comment on above: Performed By: #### 4 [id number], [id number] #### [address] RED BLOOD CELL COUNT 5.30 x10*6/uL High 3.60-5.20 [facility] Comment on above: Performed By: #### 4 [id number], [id number] #### [address] WHITE BLOOD CELLS 8.6 x10*3/uL Normal 4.3-10.3 [facility] Comment on above: Performed By: #### 4 [id number], [id number] #### [address] CCP ANTIBODIES IGG/IGAon CCP IGG/IGA ABS 6 units Normal 0-19 [facility] Comment on above: Order Comment: Perfo rmed at: 01 - [address] [id number] Director: Dave Renteria PhD, Phone: [phone] Result Comment: Nega tive <20 Weak positive 20 - 39 Moderate positive 40 - 59 Strong positive >59 Performed By: #### 4 [id number] #### RASHIDA CASTELLANOS (2013) [facility] [address] [place] [address] CELIAC REFLEX PANELon 2023 IgA [Mass/Vol] 120 mg/dL Normal 87-352 [facility] Comment on above: Order Comment: Perfo rmed at: 01 - [facility] [id number] [place], [place] [id number] Director: Dave Renteria PhD, Phone: [phone] Performed By: #### 4 [id number] #### RASHIDA CASTELLANOS (2012) [facility] [address] [place] [address] TTG IGA <2 Normal 0-3 [facility] Comment on above: Order Comment: Perfo rmed at: 01 - [facility] [id number] [place], [place] [id number] Director: Dave Renteria PhD, Phone: [phone] Result Comment: Nega tive 0 - 3 Weak Positive 4 - 10 Positive >10 Tissue Transglutaminase (tTG) has been identified as the endomysial antigen. Studies have demonstr- ated that endomysial IgA antibodies have over 99% specificity for gluten sensitive enteropathy. Performed By: #### 4 [id number] #### RASHIDA CASTELLANOS (2012) [facility] [address] [place] [address] CKon 05-29-2023 CK [Catalytic activity/Vol] 35 U/L Normal 0-164 [facility] Comment on above: Performed By: #### 4 8036058, [id number], 71141060, [id number], 81844437, 89459396, 67353429, 37406084, 35796899, 15306206, 59744007, 69608955, [id number] #### [place] [address] COMPREHENSIVE METABOLIC PANE [place] 05-29-2023 Albumin [Mass/Vol] 4.3 g/dL Normal 3.5-5.0 [facility] Comment on above: Performed By: #### 4 2552955, [id number], 62294616, [id number], 16852484, 29679524, 59785492, 15276222, 31121325, 14120573, 42315464, 54664126, 99849115 #### [address] ALK PHOS 79 U/L Normal 24-126 [facility] Comment on above: Performed By: #### 4 [id number], [id number], 81887700, [id number], 77626674, 07467943, 03952846, 64973078, 07193375, 41121337, 46895310, 49312237, 93647765 #### [address] ALT [Catalytic activity/Vol] 30 U/L Normal 4-35 [facility] Comment on above: Performed By: #### 4 5972342, 48509251, [id number], [id number], 59527846, 09041668, 49079947, 85378757, 13971951, 79414065, 09090130, 87602495, 52880915 #### [address] AST [Catalytic activity/Vol] 24 U/L Normal 3-47 [facility] Comment on above: Performed By: #### 4 0431784, 16710697, 07646257, [id number], 02402359, 48298116, 66732253, 88387600, 51796530, 08033353, 32681762, 50538232, 41818773 #### [address] Bilirubin [Mass/Vol] 0.1 mg/dL Low 0.2-1.6 [facility] Comment on above: Performed By: #### 4 6235037, 50870258, 89952767, [id number], 45555157, 95675094, 87964416, 41660830, 75197245, 17663063, 20330010, 98631180, 92236826 #### [address] Calcium [Mass/Vol] 9.6 mg/dL Normal 8.4-10.4 [facility] Comment on above: Performed By: #### 4 4121341, 97418342, 43508595, [id number], 80328142, 95209007, 08819397, 69244878, 57287171, 28979826, 91570302, 93042039, 90855479 #### [address] Chloride [Moles/Vol] 105 mmol/L Normal 96-109 [facility] Comment on above: Performed By: #### 4 2351773, 80703889, 24211561, [id number], 63630720, 34829522, 94446805, 18443003, 02889818, 35172216, 21547704, 42198995, 90578050 #### [place] [address] CO2 [Moles/Vol] 23 mmol/L Normal 22-30 [facility] Comment on above: Performed By: #### 4 4417080, 71647997, 46857230, [id number], 40305652, 28277101, 19876444, 91988743, 52039183, 50761274, 86278537, 31306904, 18372643 #### [address] Creatinine [Mass/Vol] 0.74 mg/dL Normal 0.52-1.04 [facility] Comment on above: Performed By: #### 4 [id number], 20745315, 41603647, [id number], 90740044, 21996616, 12252474, 84036687, 55930450, 90095928, 62069417, 45839063, 62441555 #### [address] GLOMERULAR FILTRATION RATE ML/MIN/1.73 SQ M.PREDICTED 109.0 mL/min/1.73m*2 Normal >=60.0 [facility] Comment on above: Result Comment: eGFR calculation based on the Chronic Kidney Disease Epidemiology Collaboration (CKD-EPI) equation refit without adjustment for race. Categories in Chronic Kidney Disease (CKD) Category: GFR(mL/min/1.73m^2) Interpretation: G1* 90 or greater Normal or high G2* 60-89 Mild decrease G3a 45-59 Mild to moderate decrease G3b 30-44 Moderate to severe decrease G4 15-29 Severe decrease G5 14 or less Kidney failure *G1&G2: In the absence of evidence of kidney damage, neither GFR category G1 nor G2 fulfill the criteria for CKD Kidney Int Suppl.2013;3:1-150 Performed By: #### 4 [id number], [id number], 96674178, [id number], 35319713, 38318428, 12853377, 31804729, 46317476, 51945537, 82371136, 97566566, 12967720 #### [address] [address] Glucose [Mass/Vol] 102 mg/dL High 65-100 [facility] Comment on above: Performed By: #### 4 [id number], 88260571, 68180625, [id number], 12134460, 49713831, 11946906, 48674752, 29569642, 85539500, 31229941, 61700253, 71560413 #### [address] [address] Potassium [Moles/Vol] 4.1 mmol/L Normal 3.6-5.1 [facility] Comment on above: Performed By: #### 4 2428494, 50975639, 86510705, [id number], 30383057, 29323240, 80640703, 53157985, 85555026, 32435919, 00427523, 53694956, 39674636 #### [address] [address] [facility] Protein [Mass/Vol] 7.3 g/dL Normal 6.3-8.2 [facility] Comment on above: Performed By: #### 4 5707191, 55227003, 47952250, [id number], 42376056, 22256190, 57981775, 83859101, 17014366, 66111870, 12418901, 01774784, 53216925 #### [address] [address] [facility] Sodium [Moles/Vol] 136 mmol/L Normal 135-147 [facility] Comment on above: Performed By: #### 4 4246460, 26798467, 80193336, [id number], 67290885, 00501088, 41287809, 88811474, 16233869, 10123037, 75179383, 48392432, 17120093 #### [facility] [address] [place] [address] [facility] Urea nitrogen [Mass/Vol] 13 mg/dL Normal 8-26 [facility] Comment on above: Performed By: #### 4 8697503, 38092339, 62478259, [id number], 86696125, 47738678, 03070146, 13984124, 13990302, 96151891, 91095384, 08442788, 17420356 #### [facility] [address] DNA DOUBLE STRANDED AB IGGon 05-29-2023 ANTI-DNA DS AB 1 IU/mL Normal 0-9 [facility] Comment on above: Order Comment: Perfo rmed at: Lab[address] Director: Dave Renteria PhD, Phone: [phone] Result Comment: Nega tive <5 Equivocal 5 - 9 Positive >9 Performed By: #### 4 [id number] #### RASHIDA CASTELLANOS (2012) [facility] [address] [place] [address] HEPATITIS B SURFACE ANTIBODY on 05-29-2023 HEPATITIS B SURFACE ANTIBODY Non-Reactive Normal Nonreactive [facility] Comment on above: Performed By: #### 4 [id number] #### RASHIDA CASTELLANOS (2012) [facility] [address] [place] [address] HEPATITIS B SURFACE ANTIGENo n 05-29-2023 HEP B SURF AG Non-Reactive Normal [facility] Comment on above: Performed By: #### 4 [id number] #### RASHIDA CASTELLANOS (2012) [facility] [address] [place] [address] HEPATITIS C ANTIBODYon 05-29 HEPATITIS C ANTIBODY Non-Reactive Normal Nonreactive, Indeterminate [facility] Comment on above: Performed By: #### 4 [id number] #### RASHIDA CASTELLANOS (2012) [facility] [address] [place] [address] MAGNESIUMon 05-29-2023 Magnesium [Mass/Vol] 1.9 mg/dL Normal 1.6-2.3 [facility] Comment on above: Performed By: #### 4 7044367, 89674938, 68799444, [id number], 40089696, 19222198, 48379713, 99837480, 12570880, 43866937, 45531865, 64811744, 65464999 #### [address] [place] [address] [place] PHOSPHORUSon 05-29-2023 Phosphate [Mass/Vol] 3.9 mg/dL Normal 2.5-4.5 [facility] Comment on above: Performed By: #### 4 1743345, 66316258, 51078704, [id number], 00765568, 39383945, 32087032, 34033656, 82652582, 08510623, 09458171, 07326036, 20759281 #### [address] [place] [address] [facility] PROTEIN / CREATININE RATIO, URINEon 05-29-2023 PROT/CREAT RATIO, UR Normal [facility] Comment on above: Result Comment: Unab le to calculate. Value outside instrument linearity. Performed By: #### 4 [id number] #### RASHIDA CASTELLANOS (2012) [facility] [address] [place] [address] UR CRE-RANDOM 229.10 mg/dL Normal [facility] Comment on above: Performed By: #### 4 8677094 #### RASHIDA CASTELLANOS (2012) [facility] [address] [place] [address] UR PROTEIN-RAN <5 Normal <=12 [facility] Comment on above: Performed By: #### 4 [id number] #### RASHIDA CASTELLANOS (2012) [facility] [address] [place] [address] PROTEIN ELECTROPHORESIS, SER UMon 05-29-2023 Albumin [Mass/Vol] 3.9 g/dL Normal 2.9-4.4 [facility] Comment on above: Order Comment: Perfo rmed at: 01 - [facility] [place], [place] [id number] Director: Dave Renteria PhD, Phone: [phone] Performed By: #### 4 [id number] #### RASHIDA CASTELLANOS (2012) [facility] [address] [facility] [place] [address] Albumin/Globulin [Mass ratio] 1.3 {ratio} Normal 0.7-1.7 [facility] Comment on above: Order Comment: Perfo rmed at: 01 - [facility] [address] [place] [address] [id number] Director: Dave Renteria PhD, Phone: [phone] Performed By: #### 4 [id number] #### RASHIDA CASTELLANOS (2012) [facility] [address] [facility] [place] [address] ALPHA1 GLOB 0.2 g/dL Normal 0.0-0.4 [facility] Comment on above: Order Comment: Perfo rmed at: 01 - [facility] [address] [id number] Director: Dave Renteria PhD, Phone: [phone] Performed By: #### 4 [id number] #### RASHIDA CASTELLANOS (2012) [facility] [address] [facility] [address] ALPHA2 GLOB 0.8 g/dL Normal 0.4-1.0 [facility] Comment on above: Order Comment: Perfo rmed at: 01 - [facility] [address] [place] [address] [id number] Director: Dave Renteria PhD, Phone: [phone] Performed By: #### 4 [id number] #### RASHIDA CASTELLANOS (2012) [facility] [address] [place] [address] BETA GLOB 1.1 g/dL Normal 0.7-1.3 [facility] Comment on above: Order Comment: Perfo rmed at: 01 - [facility] [address] [place] [address] [id number] Director: Dave Renteria PhD, Phone: [phone] Performed By: #### 4 [id number] #### RASHIDA CASTELLANOS (2012) [facility] [address] [place] [address] GAMMA GLOB 1.0 g/dL Normal 0.4-1.8 [facility] Comment on above: Order Comment: Perfo rmed at: 01 - [facility] [address] [place], [place] [id number] Director: Dave Renteria PhD, Phone: [phone] Performed By: #### 4 [id number] #### RASHIDA CASTELLANOS (2012) [facility] [address] [place] [address] Globulin (S) [Mass/Vol] 3.1 g/dL Normal 2.2-3.9 [facility] Comment on above: Order Comment: Perfo rmed at: 01 - [facility] [address] [place] [address] [id number] Director: Dave Renteria PhD, Phone: [phone] Performed By: #### 4 [id number] #### RASHIDA CASTELLANOS (2012) [facility] [address] [place] [address] MSPIKE Not Observed Normal Not Observed [facility] Comment on above: Order Comment: Perfo rmed at: 01 - [facility] [address] [place] [address] [id number] Director: Dave Renteria PhD, Phone: [phone] Performed By: #### 4 [id number] #### RASHIDA CASTELLANOS (2012) [facility] [address] [place] [address] PE NOTE Comment Normal [facility] Comment on above: Order Comment: Perfo rmed at: 01 - [facility] [address] [place] [address] [id number] Director: Dave Renteria PhD, Phone: [phone] Result Comment: Prot ein electrophoresis scan will follow via computer, mail, or wrecking supervisor delivery. Performed By: #### 4 [id number] #### RASHIDA CASTELLANOS (2012) [facility] [address] [place] [address] Protein [Mass/Vol] 7.0 g/dL Normal 6.0-8.5 [facility] Comment on above: Order Comment: Perfo rmed at: 01 - [facility] [address] [place] [address] [id number] Director: Dave Renteria PhD, Phone: [phone] Performed By: #### 4 [id number] #### RASHIDA CASTELLANOS (2012) [facility] [address] [place] [address] PTH, INTACTon 05-29-2023 PTH-INTACT 68.3 pg/mL Normal 8.7-77.1 [facility] Comment on above: Performed By: #### 4 [id number] #### RASHIDA CASTELLANOS (2012) [facility] [address] [place] [address] SEDIMENTATION RATEon 024 SED RATE 23 mm/hr High 0-20 [facility] Comment on above: Performed By: #### 4 [id number], [id number] #### [address] [place] [address] THYROID CASCADE PANELon 05-07 TSH CASCADE 1.170 uIU/mL Normal 0.465-4.[address] [facility] Comment on above: Performed By: #### 4 [id number] #### RASHIDA CASTELLANOS (2012) [facility] [address] [place] [address] URINALYSIS WITH REFLEX CULTU REon 05-29-2023 Appearance (U) Clear Normal [facility] Comment on above: Performed By: #### 4 [id number] #### RASHIDA CASTELLANOS (2012) [facility] [address] [place] [address] BILIRUBIN UA Negative Normal Negative [facility] Comment on above: Performed By: #### 4 [id number] #### RASHIDA CASTELLANOS (2012) [facility] [address] [place] [address] Color (U) Yellow Normal [facility] Comment on above: Performed By: #### 4 [id number] #### RASHIDA CASTELLANOS (2012) [facility] [address] [place] [address] Glucose Ql (U) Negative Normal Negative [facility] Comment on above: Performed By: #### 4 [id number] #### RASHIDA CASTELLANOS (2012) [facility] [address] [place] [address] Ketones Ql (U) Trace Abnormal Negative [facility] Comment on above: Performed By: #### 4 [id number] #### RASHIDA CASTELLANOS (2012) [facility] [address] [place] [address] LEUKOESTERASE Negative Normal Negative [facility] Comment on above: Performed By: #### 4 [id number] #### RASHIDA CASTELLANOS (2012) [facility] [address] [place] [address] MUCOUS-URINE Rare Normal [facility] Comment on above: Performed By: #### 4 [id number] #### RASHIDA CASTELLANOS (2012) [facility] [address] [place] [address] Nitrite Ql (U) Negative Normal Negative [facility] Comment on above: Performed By: #### 4 [id number] #### RASHIDA CASTELLANOS (2012) [facility] [address] [place] [address] OCCULT BLD Negative Normal Negative [facility] Comment on above: Performed By: #### 4 [id number] #### RASHIDA CASTELLANOS (2012) [facility] [address] [place] [address] PH, URINE 6.0 Normal [facility] Comment on above: Performed By: #### 4 [id number] #### RASHIDA CASTELLANOS (2012) [facility] [address] [place] [address] Protein Ql (U) Negative Normal Negative [facility] Comment on above: Performed By: #### 4 [id number] #### RASHIDA CASTELLANOS (2012) [facility] [address] [place] [address] RBC LM.HPF (Urine sed) [#/Area] 14 /[HPF] High <=5 [facility] Comment on above: Performed By: #### 4 [id number] #### RASHIDA CASTELLANOS (2012) [facility] [address] [place] [address] SPECIFIC GRAVITY, URINE 1.028 Normal [facility] Comment on above: Performed By: #### 4 [id number] #### RASHIDA CASTELLANOS (2012) [facility] [address] [place] [address] SQUAMOUS EPI CELLS 24 /LPF Normal [facility] Comment on above: Performed By: #### 4 [id number] #### RASHIDA CASTELLANOS (2012) [facility] [address] [place] [address] UROBILINOGEN UA Negative Normal <2.0 [facility] Comment on above: Performed By: #### 4 4683839 #### RASHIDA CASTELLANOS (2012) [facility] [address] [place] [address] WBC LM.HPF (Urine sed) [#/Area] 1 /[HPF] Normal <=5 [facility] Comment on above: Performed By: #### 4 [id number] #### RASHIDA CASTELLANOS (2012) [facility] [address] [place] [address] VITAMIN D 25 HYDROXYon 05-29 VITAMIN D 25 HYDROXY 48.6 ng/mL Normal [facility] Comment on above: Result Comment: Refe rence Range: Deficiency: <20 ng/mL Insufficiency: 21-29 ng/mL Optimal Level: >=30 ng/mL Possible Toxicity: >80 ng/mL 80 ng/mL is the lowest reported level associated with toxicity in patients without primary hyperthyroidism who have normal renal function. Performed By: #### 4 [id number] #### RASHIDA CASTELLANOS (2012) [facility] [address] [place] [address] C-REACTIVE PROTEINon 024 CRP [Mass/Vol] 9.8 mg/L High <8.0 [facility] Comment on above: Performed By: #### 8 , 3740, 457 #### [facility] [address], [address] [place] [address] Mixer Helper: Kaz Cannon MD FERRITINon 05-24-2023 Ferritin [Mass/Vol] 27 ng/mL Normal 16-154 [facility] Comment on above: Performed By: #### 8 , 3692, 457 #### [facility] [address], [address] [place] [address] Mixer Helper: Kaz Cannon MD SED RATE BY MODIFIED WESTERG RENon 05-24-2023 SED RATE BY MODIFIED WESTERGREN 6 mm/h Normal < OR = 20 [facility] Comment on above: Performed By: #### 8 09, 8574, 457 #### [facility] [address] [facility], [address] [place] [address] Mixer Helper: Kaz Cannon MD Laboratory - Chemistry and C hemistry - challengeon 05-23-2023 CRP [Mass/Vol] 9.8 mg/L Abnormal [facility] Ferritin [Mass/Vol] 27 ng/mL Normal 16 - 154 ng/mL [facility] No Panel Informationon 05-23 SED RATE BY MODIFIED WESTERGREN 6 mm/h Normal [facility], [employer] [facility] US THYROIDon 05-16-2023 [place] [address] Patient: ROSSY HAYES Phone#: : 1990 Age: 33 Gender: F Pt. Type: Out Account: [id number] Location: Ordering: [facility] Exam Date: 05/16/2023/8:47 Family Phys: Charge Code: [id number] Physician: [place] Order #: [id number] Dose#: PROCEDURE: THYROID ULTRASOUND COMPARISON: None. INDICATIONS: Enlarged thyroid TECHNIQUE: High-resolution ultrasound was performed of the thyroid gland. FINDINGS: RIGHT LOBE: Normal. No visible mass, cyst, calcification, enlargement, or abnormal echotexture. Right lobe measures 4.8 x 1.5 x 1.8 cm. LEFT LOBE: Normal. No visible mass, cyst, calcification, enlargement, or abnormal echotexture. Left lobe measures 4.5 x 1.5 x 1.9 cm. ISTHMUS: Normal. No visible mass, cyst, calcification, enlargement, or abnormal echotexture. Isthmus measures 0.4 cm. OTHER: None. CONCLUSION: 1. Unremarkable thyroid ultrasound. Dictated by: Brianda Florez MD on 05/16/2023 at 17:12 Approved by: Brianda Florez MD on 05/16/2023 at 17:14 Normal [facility] CLYDE SCREEN, IFA, W/REFL CHANTAL MELOon 05-07-2023 CLYDE SCREEN, IFA Negative Normal NEGATIVE [facility] Comment on above: Result Comment: CLYDE IFA is a first line screen for detecting the presence of up to approximately 150 autoantibodies in various autoimmune diseases. A negative CLYDE IFA result suggests an CLYDE-associated autoimmune disease is not present at this time, but is not definitive. If there is high clinical suspicion for Sjogren's syndrome, testing for anti-SS-A/Ro antibody should be considered. Anti-Madiha-1 antibody should be considered for clinically suspected inflammatory myopathies. AC-0: Negative International Consensus on CLYDE Patterns (https://doi.org/10.1515/fujd-1859-3510) For additional information, please refer to http://education.WeHostels.Sendbloom/faq/JVO334 (This link is being provided for informational/ educational purposes only.) Performed By: #### 4 418, 249, 8593, 59792, 6399 #### [facility] [place] [address] Mixer Helper: Kaz Cannon MD CBC (INCLUDES DIFF/PLT)on Basophils (Bld) [#/Vol] 0.023 10*3/uL Normal 0-200 [facility] Comment on above: Performed By: #### 4 418, 249, 8593, 23614, 6399 #### [facility] [place] [address] Mixer Helper: Kaz Cannon MD Basophils/100 WBC (Bld) 0.2 % Normal [facility] Comment on above: Performed By: #### 4 418, 249, 8593, 31445, 6399 #### [facility] [place] [address] Mixer Helper: Kaz Cannon MD Eosinophils (Bld) [#/Vol] 0 10*3/uL Low 15-500 [facility] Comment on above: Performed By: #### 4 418, 249, 8593, 03817, 6399 #### [facility] [address] [place] [address] Mixer Helper: Kaz Cannon MD Eosinophils/100 WBC (Bld) 0.0 % Normal [facility] Comment on above: Performed By: #### 4 418, 249, 8593, 29187, 6399 #### [facility] of [place] [address] Mixer Helper: Kaz Cannon MD Erythrocyte distribution width (RBC) [Ratio] 13.8 % Normal 11.0-15.0 [facility] Comment on above: Performed By: #### 4 418, 249, 8593, 42656, 6399 #### [facility] of [place] [address] Mixer Helper: Kaz Cannon MD Hematocrit (Bld) [Volume fraction] 39.9 % Normal 35.0-45.0 [facility] Comment on above: Performed By: #### 4 418, 249, 8593, 93549, 6399 #### [facility] of [place] [address] Mixer Helper: Kaz Cannon MD Hemoglobin (Bld) [Mass/Vol] 13.0 g/dL Normal 11.7-15.5 [facility] Comment on above: Performed By: #### 4 418, 249, 8593, 48543, 6399 #### [facility] of [place] [address] Mixer Helper: Kaz Cannon MD Lymphocytes (Bld) [#/Vol] 1.22 10*3/uL Normal 850-3900 [facility] Comment on above: Performed By: #### 4 418, 249, 8593, 73075, 6399 #### [facility] of [place] [address] Mixer Helper: Kaz Cannon MD Lymphocytes/100 WBC (Bld) 10.7 % Normal [facility] Comment on above: Performed By: #### 4 418, 249, 8593, 22908, 6399 #### [facility] [place] [address] [place] [address] Mixer Helper: Kaz Cannon MD MCH (RBC) [Entitic mass] 27.1 pg Normal 27.0-33.0 [facility] Comment on above: Performed By: #### 4 418, 249, 8593, 63749, 6399 #### [facility] of [place] [address] Mixer Helper: Kaz Cannon MD MCHC (RBC) [Mass/Vol] 32.6 g/dL Normal 32.0-36.0 [facility] Comment on above: Performed By: #### 4 418, 249, 8593, 00827, 6399 #### [facility] of [place] [address] Mixer Helper: Kaz Cannon MD MCV (RBC) [Entitic vol] 83.1 fL Normal 80.0-100.0 [facility] Comment on above: Performed By: #### 4 418, 249, 8593, 65160, 6399 #### [facility] of [place] [address] Mixer Helper: Kaz Cannon MD Monocytes (Bld) [#/Vol] 0.296 10*3/uL Normal 200-950 [facility] Comment on above: Performed By: #### 4 418, 249, 8593, 58466, 6399 #### [facility] [place] [address] Mixer Helper: Kaz Cannon MD Monocytes/100 WBC (Bld) 2.6 % Normal [facility] Comment on above: Performed By: #### 4 418, 249, 8593, 36808, 6399 #### [facility] of [place] [address] Mixer Helper: Kaz Cannon MD Neutrophils (Bld) [#/Vol] 9.861 10*3/uL High 4716-1071 [facility] Comment on above: Performed By: #### 4 418, 249, 8593, 34591, 6399 #### [facility] of [place] [address] Mixer Helper: Kaz Cannon MD Neutrophils/100 WBC (Bld) 86.5 % Normal [facility] Comment on above: Performed By: #### 4 418, 249, 8593, 44089, 6399 #### [facility] of [address], [address] [place] [address] Mixer Helper: Kaz Cannon MD Platelet mean volume (Bld) [Entitic vol] 9.4 fL Normal 7.5-12.5 [facility] Comment on above: Performed By: #### 4 418, 249, 8593, 80578, 6399 #### [facility] of [place] [address] Mixer Helper: Kaz Cannon MD Platelets (Bld) [#/Vol] 354 10*3/uL Normal 140-400 [facility] Comment on above: Performed By: #### 4 418, 249, 8593, 34148, 6399 #### [facility] of [place] [address] Mixer Helper: Kaz Cannon MD RBC (Bld) [#/Vol] 4.80 10*6/uL Normal 3.80-5.10 [facility] Comment on above: Performed By: #### 4 418, 249, 8593, 77760, 6399 #### [facility] of [place] [address] Mixer Helper: Kaz Cannon MD WBC (Bld) [#/Vol] 11.4 10*3/uL High 3.8-10.8 [facility] Comment on above: Performed By: #### 4 418, 249, 8593, 94994, 6399 #### [facility] of [place] [address] Mixer Helper: Kaz Cannon MD COMPREHENSIVE METABOLIC PANE [facility] 05-07-2023 Albumin [Mass/Vol] 4.1 g/dL Normal 3.6-5.1 [facility] Comment on above: Performed By: #### 4 418, 249, 8593, 78816, 6399 #### [facility] of [place] [address] Mixer Helper: Kaz Cannon MD Albumin/Globulin [Mass ratio] 1.6 {ratio} Normal 1.0-2.5 [facility] Comment on above: Performed By: #### 4 418, 249, 8593, 94577, 6399 #### [facility] of [place] [address] Mixer Helper: Kaz Cannon MD ALP [Catalytic activity/Vol] 61 U/L Normal 31-125 [facility] Comment on above: Performed By: #### 4 418, 249, 8593, 65127, 6399 #### [facility] of [place] [address] Mixer Helper: Kaz Cannon MD ALT [Catalytic activity/Vol] 36 U/L High 6-29 [facility] Comment on above: Performed By: #### 4 418, 249, 8593, 89406, 6399 #### [facility] of [place] [address] Mixer Helper: Kaz Cannon MD AST [Catalytic activity/Vol] 16 U/L Normal 10-30 [facility] Comment on above: Performed By: #### 4 418, 249, 8593, 85517, 6399 #### [facility] of [place] [address] Mixer Helper: Kaz Cannon MD Bilirubin [Mass/Vol] 0.3 mg/dL Normal 0.2-1.2 [facility] Comment on above: Performed By: #### 4 418, 249, 8593, 81063, 6399 #### [facility] of [place] [address] Mixer Helper: Kaz Cannon MD BUN/CREATININE RATIO SEE NOTE: Normal 6-22 [facility] Comment on above: Result Comment: Not Reported: BUN and Creatinine are within reference range. Performed By: #### 4 418, 249, 8593, 50764, 6399 #### [facility] of [place] [address] Mixer Helper: Kaz Cannon MD Calcium [Mass/Vol] 9.1 mg/dL Normal 8.6-10.2 [facility] Comment on above: Performed By: #### 4 418, 249, 8593, 91877, 6399 #### [facility] of [place] [address] Mixer Helper: Kaz Cannon MD Chloride [Moles/Vol] 106 mmol/L Normal 98-110 [facility] Comment on above: Performed By: #### 4 418, 249, 8593, 06701, 6399 #### [facility] [place] [address] Mixer Helper: Kaz Cannon MD CO2 [Moles/Vol] 22 mmol/L Normal 20-32 [facility] Comment on above: Performed By: #### 4 418, 249, 8593, 88037, 6399 #### [facility] of [place] [address] Mixer Helper: Kaz Cannon MD Creatinine [Mass/Vol] 0.68 mg/dL Normal 0.50-0.97 [facility] Comment on above: Performed By: #### 4 418, 249, 8593, 99103, 6399 #### [facility] [place] [address] Mixer Helper: Kaz Cannon MD GFR/1.73 sq M.predicted among non-blacks MDRD (S/P/Bld) [Vol rate/Area] 117 mL/min/{1.73_m2} Normal > OR = 60 [facility] Comment on above: Performed By: #### 4 418, 249, 8593, 42870, 6399 #### [facility] of [place] [address] Mixer Helper: Kaz Cannon MD Globulin (S) [Mass/Vol] 2.5 g/dL Normal 1.9-3.7 [facility] Comment on above: Performed By: #### 4 418, 249, 8593, 43584, 6399 #### [facility] [place] [address] Mixer Helper: Kaz Cannon MD Glucose [Mass/Vol] 126 mg/dL High 65-99 [facility] Comment on above: Result Comment: Fasting reference interval For someone without known diabetes, a glucose value >125 mg/dL indicates that they may have diabetes and this should be confirmed with a follow-up test. Performed By: #### 4 418, 249, 8593, 41137, 6399 #### [facility] [place] [address] Mixer Helper: Kaz Cannon MD Potassium [Moles/Vol] 3.9 mmol/L Normal 3.5-5.3 [facility] Comment on above: Performed By: #### 4 418, 249, 8593, 89795, 6399 #### [facility] [place] [address] Mixer Helper: Kaz Cannon MD Protein [Mass/Vol] 6.6 g/dL Normal 6.1-8.1 [facility] Comment on above: Performed By: #### 4 418, 249, 8593, 05110, 6399 #### [facility] [place] [address] Mixer Helper: Kaz Cannon MD Sodium [Moles/Vol] 139 mmol/L Normal 135-146 [facility] Comment on above: Performed By: #### 4 418, 249, 8593, 36467, 6399 #### [facility] [place] [address] Mixer Helper: Kaz Cannon MD Urea nitrogen [Mass/Vol] 15 mg/dL Normal 7-25 [facility] Comment on above: Performed By: #### 4 418, 249, 8593, 28521, 6399 #### [facility] [place] [address] Mixer Helper: Kaz Cannon MD LYME AB SCREENon 05-07-2023 LYME AB SCREEN 1.74 index [facility] Comment on above: Result Comment: Inde x Interpretation ----- < 0.90 Negative 0.90-1.09 Equivocal > 1.09 Positive As recommended by the Food and Drug Administration (FDA), all samples with positive or equivocal results in a Borrelia burgdorferi antibody screen will be tested using a blot method. Positive or equivocal screening test results should not be interpreted as truly positive until verified as such using a supplemental assay (e.g., B. burgdorferi blot). The screening test and/or blot for B. burgdorferi antibodies may be falsely negative in early stages of Lyme disease, including the period when erythema migrans is apparent. Performed By: #### 4 418, 249, 8593, 21569, 6399 #### [facility] [place] [address] Mixer Helper: Kaz Cannon MD LYME DISEASE ANTIBODIES (IGG ,IGM), IMMUNOBLOTon 05-07-2023 18 KD (IGG) BAND Non-Reactive Normal [facility] Comment on above: Performed By: #### 4 418, 249, 8593, 14937, 6399 #### [facility] [place] [address] Mixer Helper: Kaz Cannon MD 23 KD (IGG) BAND Non-Reactive Normal [facility] Comment on above: Performed By: #### 4 418, 249, 8593, 34939, 6399 #### [facility] [place] [address] Mixer Helper: Kaz Cannon MD 23 KD (IGM) BAND Non-Reactive Normal [facility] Comment on above: Performed By: #### 4 418, 249, 8593, 81701, 6399 #### [facility] [place] [address] Mixer Helper: Kaz Cannon MD 28 KD (IGG) BAND Non-Reactive Normal [facility] Comment on above: Performed By: #### 4 418, 249, 8593, 29608, 6399 #### [facility] of [address], [address] [place] [address] Mixer Helper: Kaz Cannon MD 30 KD (IGG) BAND Non-Reactive Normal [facility] Comment on above: Performed By: #### 4 418, 249, 8593, 45204, 6399 #### [facility] [address], [address] [place] [address] Mixer Helper: Kaz Cannon MD 39 KD (IGG) BAND Non-Reactive Normal [facility] Comment on above: Performed By: #### 4 418, 249, 8593, 86607, 6399 #### [facility] [place] [address] Mixer Helper: Kaz Cannon MD 39 KD (IGM) BAND Non-Reactive Normal [facility] Comment on above: Performed By: #### 4 418, 249, 8593, 27725, 6399 #### [facility] [place] [address] Mixer Helper: Kaz Cannon MD 41 KD (IGG) BAND Non-Reactive Normal [facility] Comment on above: Performed By: #### 4 418, 249, 8593, 77189, 6399 #### [facility] [place] [address] Mixer Helper: Kaz Cannon MD 41 KD (IGM) BAND Non-Reactive Normal [facility] Comment on above: Result Comment: Lyme immunoblot testing should only be performed on samples from patients who have had a Positive or Equivocal result in a screening assay. As per CDC criteria, a Lyme disease IgG Immunoblot must show reactivity to at least 5 of 10 specific borrelial proteins to be considered positive; similarly, a positive Lyme disease IgM immunoblot requires reactivity to 2 of 3 specific borrelial proteins. Although considered negative, IgG reactivity to fewer specific borrelial proteins or IgM reactivity to only 1 protein may indicate recent B. burgdorferi infection and warrant testing of a later sample. A positive IgM but negative IgG result obtained more than a month after onset of symptoms likely represents a false- positive IgM result rather than acute Lyme disease. In rare instances, Lyme disease immunoblot reactivity may represent antibodies induced by exposure to other spirochetes. Performed By: #### 4 418, 249, 8593, 65267, 6399 #### [facility] [place] [address] Mixer Helper: Kaz Cannon MD 45 KD (IGG) BAND Non-Reactive Normal [facility] Comment on above: Performed By: #### 4 418, 249, 8593, 30778, 6399 #### [facility] of [place] [address] Mixer Helper: Kaz Cannon MD 58 KD (IGG) BAND Reactive Abnormal [facility] Comment on above: Performed By: #### 4 418, 249, 8593, 87410, 6399 #### [facility] [place] [address] Mixer Helper: Kaz Cannon MD 66 KD (IGG) BAND Non-Reactive Normal [facility] Comment on above: Performed By: #### 4 418, 249, 8593, 60638, 6399 #### [facility] [place] [address] Mixer Helper: Kaz Cannon MD 93 KD (IGG) BAND Non-Reactive Normal [facility] Comment on above: Performed By: #### 4 418, 249, 8593, 46124, 6399 #### [facility] [place] [address] Mixer Helper: Kaz Cannon MD LYME DISEASE AB(IGG),BLOT Negative Normal NEGATIVE [facility] Comment on above: Performed By: #### 4 418, 249, 8593, 18312, 6399 #### [facility] [place] [address] Mixer Helper: Kaz Cannon MD LYME DISEASE AB(IGM),BLOT Negative Normal NEGATIVE [facility] Comment on above: Performed By: #### 4 418, 249, 8593, 89616, 6399 #### [facility] of [address], [address] [place] [address] Mixer Helper: Kaz Cannon MD RHEUMATOID FACTORon 05-07-19 RHEUMATOID FACTOR <14 Normal <14 [facility] Comment on above: Performed By: #### 4 418, 447, 1649, 82274, 5835 #### [facility] [address], [address] [place] [address] Mixer Helper: Kaz Cannon MD Laboratory - Chemistry and C hemistry - challengeon 05-02-2023 Albumin [Mass/Vol] 4.1 g/dL Normal 3.6 - 5.1 g/dL [facility], [facility].; [place] [facility], [facility]. Albumin/Globulin [Mass ratio] 1.6 {ratio} Normal 1.0 - 2.5 [facility], [facility].; [place] [employer] ALP [Catalytic activity/Vol] 61 U/L Normal 31 - 125 U/L [facility], [facility].; [employer] ALT [Catalytic activity/Vol] 36 U/L Abnormal 6 - 29 U/L [place] [facility], [facility].; [employer] AST [Catalytic activity/Vol] 16 U/L Normal 10 - 30 U/L [place] [facility], [facility].; [employer] Bilirubin [Mass/Vol] 0.3 mg/dL Normal 0.2 - 1.2 mg/dL [place] [facility], [facility].; [employer] Calcium [Mass/Vol] 9.1 mg/dL Normal 8.6 - 10. 2 mg/dL [place] [facility], [facility].; [employer] Chloride [Moles/Vol] 106 mmol/L Normal 98 - 110 mmol/L [place] [facility], [facility].; [employer] CO2 [Moles/Vol] 22 mmol/L Normal 20 - 32 mmol/L [facility], [facility].; [employer] Creatinine [Mass/Vol] 0.68 mg/dL Normal 0.50 - 0.97 mg/dL [facility], [facility].; [employer] GFR/1.73 sq M.predicted among non-blacks MDRD (S/P/Bld) [Vol rate/Area] 117 mL/min/{1.73_m2} Normal [facility].; [facility], [facility] Glucose [Mass/Vol] 126 mg/dL Abnormal 65 - 99 mg/dL [facility].; [facility], [facility] Potassium [Moles/Vol] 3.9 mmol/L Normal 3.5 - 5.3 mmol/L [facility]; [facility], [facility] Protein [Mass/Vol] 6.6 g/dL Normal 6.1 - 8.1 g/dL [facility]; [facility], [facility] Sodium [Moles/Vol] 139 mmol/L Normal 135 - 146 mmol/L [facility]; [facility], [facility] Urea nitrogen [Mass/Vol] 15 mg/dL Normal 7 - 25 mg/dL [facility]; [facility], [facility] Laboratory - Hematology and Cell countson 05-02-2023 Basophils (Bld) [#/Vol] 0.023 10*3/uL Normal 0 - 200 {cells/uL} [facility].; [facility], [facility] Basophils/100 WBC (Bld) 0.2 % Normal [facility]; [facility], [facility] Eosinophils (Bld) [#/Vol] 0 10*3/uL Abnormal 15 - 500 {cells/uL} [facility].; [facility], [facility] Eosinophils/100 WBC (Bld) 0.0 % Normal [facility]; [facility], [facility] Erythrocyte distribution width (RBC) [Ratio] 13.8 % Normal 11.0 - 15.0 % [facility].; [facility], [facility] Hematocrit (Bld) [Volume fraction] 39.9 % Normal 35.0 - 45.0 % [facility].; [facility], [facility] Hemoglobin (Bld) [Mass/Vol] 13.0 g/dL Normal 11.7 - 15.5 g/dL [facility], [facility].; [facility], [facility] Lymphocytes (Bld) [#/Vol] 1.22 10*3/uL Normal 850 - 3900 {cells/uL} [facility].; [place] [employer] [facility]. Lymphocytes/100 WBC (Bld) 10.7 % Normal [facility].; [place] [facility], [facility]. MCH (RBC) [Entitic mass] 27.1 pg Normal 27.0 - 33.0 pg [facility].; [place] [employer], [facility]. MCHC (RBC) [Mass/Vol] 32.6 g/dL Normal 32.0 - 36.0 g/dL [facility].; [place] [employer], [facility]. MCV (RBC) [Entitic vol] 83.1 fL Normal 80.0 - 100.0 fL [facility].; [place] [facility], [facility]. Monocytes (Bld) [#/Vol] 0.296 10*3/uL Normal 200 - 950 {cells/uL} [facility].; [place] [employer], [facility]. Monocytes/100 WBC (Bld) 2.6 % Normal [facility].; [place] [employer] [facility]. Neutrophils (Bld) [#/Vol] 9.861 10*3/uL Abnormal 1500 - 7800 {cells/uL} [facility].; [place] [employer], [facility]. Neutrophils/100 WBC (Bld) 86.5 % Normal [facility].; [place] [employer], [facility]. Platelet mean volume (Bld) [Entitic vol] 9.4 fL Normal 7.5 - 12.5 fL [facility].; [place] [employer], [facility]. Platelets (Bld) [#/Vol] 354 10*3/uL Normal 140 - 400 [facility].; [place] [employer], [facility]. RBC (Bld) [#/Vol] 4.80 10*6/uL Normal 3.80 - 5.1 0 {Million/uL} [place] [facility].; [place] [employer], [facility]. WBC (Bld) [#/Vol] 11.4 10*3/uL Abnormal 3.8 - 10.[address] [facility] [address].; [place] SHER[employer] assistant. No Panel Informationon 05-02 18 KD (IGG) BAND Non-Reactive Normal [facility].; [employer]. 23 KD (IGG) BAND Non-Reactive Normal [place] [employer]ER[employer] assistant.; [employer], [employer]. 23 KD (IGM) BAND Non-Reactive Normal [place] [employer]ER[employer] assistant.; [employer] 28 KD (IGG) BAND Non-Reactive Normal [facility] [employer].; [employer] 30 KD (IGG) BAND Non-Reactive Normal [facility] [employer].; [employer] 39 KD (IGG) BAND Non-Reactive Normal [facility] [employer].; [employer] 39 KD (IGM) BAND Non-Reactive Normal [facility] [employer]ER[employer] assistant.; [employer]. 41 KD (IGG) BAND Non-Reactive Normal [place] [employer]ER[employer] assistant.; [employer], [employer]. 41 KD (IGM) BAND Non-Reactive Normal [facility] [employer]ER[employer] assistant.; [employer], [employer]. 45 KD (IGG) BAND Non-Reactive Normal [facility] [employer]ER[employer] assistant.; [employer]. 58 KD (IGG) BAND Reactive Abnormal [employer].; [employer]. 66 KD (IGG) BAND Non-Reactive Normal [employer].; [employer]. 93 KD (IGG) BAND Non-Reactive Normal [facility] [employer]ER[employer] assistant.; [employer]. CLYDE SCREEN, IFA Negative Normal [facility] [employer]ER[employer] assistant.; [employer]. BUN/CREATININE RATIO SEE NOTE: Normal 6 - 22 [employer].; [employer]. GLOBULIN 2.5 Normal 1.9 - 3.7 [employer].; [employer]. LYME DISEASE AB(IGG),BLOT Negative Normal [employer].; [employer]. LYME DISEASE AB(IGM),BLOT Negative Normal [employer].; [employer]. RHEUMATOID FACTOR <14 Normal [employer].; [employer]. Estradiol SerPl-ncon 09-12 E2 [Mass/Vol] pg/mL Normal [facility] Comment on above: Order Comment: Speci men Type: BLOOD SPECIMEN Ordering Facility: [facility] Address: [address] [place] [address] Result Comment: This test is not suitable for patients receiving treatment with the drug Fulvestrant (Faslodex). The drug causes an interference leading to falsely elevated estradiol results. Menstrual cycle Estradiol reference ranges: Follicular : < 234 pg/mL Ovulation : 41 to 398 pg/mL Luteal : < 342 pg/mL Estradiol reference ranges vary by gestational period: First trimester : 154 to 3243 pg/mL Second trimester : 1561 to 33237 pg/mL Third trimester : 8285 to >05823 pg/mL Post-menopausal Estradiol reference range: < 41 pg/mL Reference: 1. Estradiol - E2 (Estradiol III) [package insert V 3.0 Venezuelan]. [facility], [place], [place], October 2015. Performed By: #### 2 243-4 #### [facility] CLIA [id number] [address] [place] [address] [place] FSH SerPl-aCncon 09-12-2022 Follitropin Qn 3.8 m[IU]/mL Normal See comment [facility] Comment on above: Order Comment: Speci men Type: BLOOD SPECIMEN Ordering Facility: [facility] Address: [address] [place] [address] Result Comment: Refe rence range: Follicular: 3.5-12.5 mIU/mL Ovulation: 4.7-21.5 mIU/mL Luteal: 1.7-7.7 mIU/mL Postmenopausal: 25.8-134.8 mIU/mL Performed By: #### 2 839-9, 2842-3, 14229-7, 2986-8, 18938-5 #### [facility] CLIA [id number] [address] [place] [address] [place] LH SerPl-aCncon 09-12-2022 Lutropin Qn 7.0 m[IU]/mL Normal See comment [facility] Comment on above: Order Comment: Speci men Type: BLOOD SPECIMEN Ordering Facility: [facility] Address: [address] [place] [address] Result Comment: Refe rence range: Follicular: 2.4-12.6 mIU/mL Midcycle: 14.0-95.6 mIU/mL Luteal: 1.0-11.4 mIU/mL [place]: 7.7-58.5 mIU/mL Performed By: #### 2 839-9, 2842-3, 29170-4, 2986-8, 59998-0 #### [facility] CLIA [id number] [address] [place], [place] [id number] [place] Progest SerPl-mCncon 023 Progesterone [Mass/Vol] 0.5 ng/mL Normal See comment [facility] Comment on above: Order Comment: Speci men Type: BLOOD SPECIMEN Ordering Facility: [facility] Address: [address] [place] [address] Result Comment: Mens trual Cycle Progesterone Reference Ranges: Follicular: <1.0 ng/mL Ovulation: <12.1 ng/mL Luteal: 1.8 to 23.9 ng/mL. Progesterone Reference Ranges vary by gestational period: First Trimester: 11.0 to 44.3 ng/mL Second Trimester: 25.4 to 83.3 ng/mL Third Trimester: 58.7 to 214 ng/mL Post menopausal Progesterone: <0.5 ng/mL Reference: 1. Progesterone (Progesterone III) [package insert V 1.0 Venezuelan]. [facility] [employer], [place], [place]. February 2015. Performed By: #### 2 839-9, 2842-3, 68184-2, 2986-8, 06762-4 #### [facility] CLIA [id number] [address] [place], [place] [id number] [place] Prolactin SerPl-mCncon 09-12 Prolactin [Mass/Vol] 8.4 ng/mL Normal 4.5-26.8 [facility] Comment on above: Order Comment: Speci men Type: BLOOD SPECIMEN Ordering Facility: [facility] Address: [address] [place] [address] Result Comment: Prol actin test is performed using the [facility] Electrochemiluminescence Immunoassay method. Results obtained with different methods or kits cannot be used interchangeably. Performed By: #### 2 839-9, 2842-3, 48028-8, 2986-8, 64718-8 #### [facility] CLIA [id number] [address] [place] [id number] [place] Testost SerPl-mCncon 023 Testosterone [Mass/Vol] 35 ng/dL Normal <40 [facility] Comment on above: Order Comment: Speci men Type: BLOOD SPECIMEN Ordering Facility: [facility] Address: [address] [place] [address] Performed By: #### 2 839-9, 2842-3, 77057-3, 2986-8, 67359-2 #### [facility] CLIA [id number] [address] [place] [address] [place] Laboratory - Chemistry and C hemistry - challengeon 11-01-2021 CRP [Mass/Vol] 5.10 mg/dL Abnormal 0.00 - 0.90 mg/dL [facility], [facility].; [facility] Laboratory - Hematology and Cell countson 11-01-2021 Basophils (Bld) [#/Vol] 0.00 {3/UL} Normal 0.00 - 0.10 {3/UL} [facility], [facility].; [facility], Inc[employer] Basophils/100 WBC (Bld) 0.6 % Normal 0.0 - 2.0 % [facility], [facility].; [employer] CBC W Auto Differential panel (Bld) CBC + DIFF Normal [place] [facility], [facility].; [facility], Inc[facility] Eosinophils (Bld) [#/Vol] 0.00 {3/UL} Normal 0.00 - 0.50 {3/UL} [place] [facility], [facility].; [place] [facility], Inc[facility] Eosinophils/100 WBC (Bld) 0.1 % Normal 0.0 - 7.0 % [facility], Inc.; [employer] Erythrocyte distribution width (RBC) [Ratio] 14.4 % Normal 12.0 - 15.6 % [facility] [employer].; [employer]. Hematocrit (Bld) [Volume fraction] 43.1 % Normal 34.0 - 46.0 % [place] [employer].; [employer]. Hemoglobin (Bld) [Mass/Vol] 14.3 g/dL Normal 12.0 - 16.0 g/dL [place] [employer] assistant.; [employer], [employer]. Lymphocytes (Bld) [#/Vol] 1.20 {3/UL} Normal 0.80 - 2.80 {3/UL} [place] [employer] assistant.; [employer]. Lymphocytes/100 WBC (Bld) 16.3 % Abnormal 20.0 - 45.0 % [place] [employer].; [employer]. MCH (RBC) [Entitic mass] 28 pg Normal 27 - 33 pg [place] [employer] assistant.; [employer], [employer]. MCHC (RBC) [Mass/Vol] 33 {X10_3} Normal 32 - 36 {X10_3} [place] [employer].; [employer], [employer]. MCV (RBC) [Entitic vol] 83 fL Normal 80 - 99 fL [facility] [employer].; [employer], [employer]. Monocytes (Bld) [#/Vol] 0.90 {3/UL} Normal 0.20 - 1.00 {3/UL} [employer].; [employer], [employer]. Monocytes/100 WBC (Bld) 11.7 % Abnormal 0.0 - 10.0 % [place] [employer].; [employer]. Morphology Ramin (Bld) [Interp] N/A Normal [place] [employer].; [employer]. Neutrophils (Bld) [#/Vol] 5.30 {3/UL} Normal 1.50 - 7.10 {3/UL} [employer].; [employer], [employer]. Neutrophils/100 WBC (Bld) 71.3 % Normal 46.0 - 76.0 % [facility] [employer].; [employer], [employer]. Platelet mean volume (Bld) [Entitic vol] 7.1 fL Normal 6.6 - 10.5 fL [employer].; [employer]. Platelets (Bld) [#/Vol] 230 {3/UL} Normal 150 - 450 {3/UL} [employer], [employer].; [employer] RBC (Bld) [#/Vol] 5.20 {6/UL} Normal 4.10 - 5.3 0 {6/UL} [employer].; [employer] WBC (Bld) [#/Vol] 7.4 {3/UL} Normal 4.5 - 10.8 {3/UL} [employer], [employer]. Laboratory - Microbiology an d Antimicrobial susceptibilityon 11-01-2021 Bacteria identified Cx Nom (Bld) CULTURE BLOOD Normal [employer], [employer]. No Panel Informationon 11-01 24HOUR REPORT Negative Normal [employer].; [employer] 48HOUR REPORT Negative Normal [employer].; [employer], [employer]. 72HOUR REPORT Negative Normal [employer].; [employer] MANUAL DIFF N/A Normal [employer].; [employer], [employer]. Normal [employer].; [employer], [employer]. SET: 1 of 1 Normal [employer].; [employer] No Panel Informationon 09-13 CULTURE, AEROBIC BACTERIA SEE NOTE Normal [employer].; [employer], [employer]. GC/Chlamydia Amp, Uron 06-01 Chlamydia Amplif, Ur Normal [facility] Comment on above: Result Comment: Nega tive for For screening asymptomatic women, a vaginal swab specimen (APTIMA vaginal swab [id number]) is optimal. Urine specimens have reduced sensitivity for Chlamydia trachomatis or Neisseria gonorrhoeae infection in female patients without symptoms. This test was developed and its performance characteristics determined by [facility]'s [facility] [facility] [place] ([facility]). It has not been cleared or approved by the FDA. [facility] is regulated under CLIA as qualified to perform high complexity testing. This test is used for clinical purposes. It should not be regarded as investigational or for research. Chlamydia For screening asymptomatic women, a vaginal swab specimen (APTIMA vaginal swab 632594) is optimal. Urine specimens have reduced sensitivity for Chlamydia trachomatis or Neisseria gonorrhoeae infection in female patients without symptoms. This test was developed and its performance characteristics determined by [facility] [place] ([facility]). It has not been cleared or approved by the FDA. [facility] is regulated under CLIA as qualified to perform high complexity testing. This test is used for clinical purposes. It should not be regarded as investigational or for research. trachomatis by For screening asymptomatic women, a vaginal swab specimen (APTIMA vaginal swab 443957) is optimal. Urine specimens have reduced sensitivity for Chlamydia trachomatis or Neisseria gonorrhoeae infection in female patients without symptoms. This test was developed and its performance characteristics determined by [facility] [place] ([facility]). It has not been cleared or approved by the FDA. [facility] is regulated under CLIA as qualified to perform high complexity testing. This test is used for clinical purposes. It should not be regarded as investigational or for research. amplification. For screening asymptomatic women, a vaginal swab specimen (APTIMA vaginal swab 507687) is optimal. Urine specimens have reduced sensitivity for Chlamydia trachomatis or Neisseria gonorrhoeae infection in female patients without symptoms. This test was developed and its performance characteristics determined by [facility] [place] ([facility]). It has not been cleared or approved by the FDA. [facility] is regulated under CLIA as qualified to perform high complexity testing. This test is used for clinical purposes. It should not be regarded as investigational or for research. Performed By: #### U GCCT #### [facility] Routine Lab [address] [place], [place] [address] GC Amplification, Ur NGNEG Normal [facility] Reference Lab Comment on above: Performed By: #### U GCCT #### [facility] Routine Lab [address] [place], [place] [address] Hemoglobin A1con 10-03-2019 HbA1c (Bld) [Mass fraction] 5.4 % Normal 4.3-5.6 [facility] Reference Lab Comment on above: Performed By: #### H BA1C #### [facility] Laboratories Routine Lab [address] [place], [place] [id number] HbA1c (Bld) [Mass fraction] 108 mg/dL Normal [facility] Reference Lab Comment on above: Performed By: #### H BA1C #### [facility] Laboratories Routine Lab [address] [place], [place] [address] Vital Signs Date Time Vital Sign Value Performing Clinician Facility 12-13-2023 08:52-0400 Body height 158.75 cm [facility], [facility].; [employer] [facility], [employer]. 12-13-2023 08:52-0400 Body mass index (BMI) [Ratio] 37.44 kg/m2 [facility], [facility].; [employer] [facility], [facility]. 12-13-2023 08:52-0400 Body surface area Derived from formula 1.96 m2 [facility], [facility].; [employer], [employer]. 12-13-2023 08:52-0400 Body weight 94.35 kg [facility], [facility].; [employer], [facility]. 08-09-2023 09:04-0400 Body height 158.75 cm [facility], [facility].; [employer] [facility], [facility]. 08-09-2023 09:04-0400 Body mass index (BMI) [Ratio] 37.98 kg/m2 [facility], [facility].; [employer] 08-09-2023 09:04-0400 Body surface area Derived from formula 1.97 m2 [facility], [facility].; [employer]. 08-09-2023 09:04-040 Body temperature 98.6 [degF] [facility], [facility].; [employer]. Comment on above: Method: Tympanic 08-09-2023 09:040400 Body weight 95.71 kg [facility], [facility].; [employer]. 08-09-2023 09:04-0400 Diastolic blood pressure 84 mm[Hg] [facility], [facility].; [facility], [employer]. Comment on above: Patient Position: Sitting; Cuff Location : Left Arm; Cuff Size: Standard 08-09-2023 09:04-0400 Heart rate 72 /min [facility], [facility].; [facility], [employer]. Comment on above: Pattern: Regular 08-09-2023 09:04-0400 Inhaled oxygen concentration 21 % [facility], [facility].; [employer] [facility], [employer]. Comment on above: Room air 08-09-2023 09:040400 SaO2% (BldA) [Mass fraction] 98 % [facility].; [facility], [employer]. 08-09-2023 09:04-0400 Systolic blood pressure 119 mm[Hg] Jenny Garcia [facility], [facility].; [employer] [facility] [facility], [employer]. Comment on above: Patient Position: Sitting; Cuff Location : Left Arm; Cuff Size: Standard 06-14-2023 13:42-0500 Body height 158.75 cm [facility], [facility].; [facility], [facility]. 06-14-2023 13:42-0500 Body mass index (BMI) [Ratio] 37.26 kg/m2 [facility], [facility].; [facility], [employer]. 06-14-2023 13:42-0500 Body surface area Derived from formula 1.95 m2 [facility].; [facility] [facility], [employer]. 06-14-2023 13:42-0500 Body temperature 98.7 [degF] [facility], [facility].; [employer] [facility], [employer]. Comment on above: Method: Tympanic 06-14-2023 13:42-0500 Body weight 93.9 kg Jenny Garcia FRE[employer]HER [facility], [facility].; [employer] [facility] [facility], [employer]. 06-14-2023 13:42-0500 Diastolic blood pressure 72 mm[Hg] Jenny Garcia [facility].; [employer] [facility]. Comment on above: Patient Position: Sitting; Cuff Location : Left Arm; Cuff Size: Standard 06-14-2023 13:42-0500 Heart rate 82 /min Jenny Garcia LPN [facility], [employer].; [employer], [employer]. Comment on above: Pattern: Regular 06-14-2023 13:42-0500 Systolic blood pressure 113 mm[Hg] Jenny Garcia LPN [facility], [employer].; [employer], [employer]. Comment on above: Patient Position: Sitting; Cuff Location : Left Arm; Cuff Size: Standard 05-02-2023 13:27-0500 Body height 158.75 cm Chelsi Graves [employer] [facility], [facility].; [place] [facility] [facility], [employer] 05-02-2023 13:27-0500 Body mass index (BMI) [Ratio] 37.08 kg/m2 Chelsi Barlow Ely [facility], Inc.; [place] [facility], Inc[employer] 05-02-2023 13:27-0500 Body surface area Derived from formula 1.95 m2 Chelsi Graves [facility], [facility].; [employer], [employer] 05-02-2023 13:27-0500 Body weight 93.44 kg Chelsi Barlow E[employer] [facility], [facility].; [employer], [employer] 05-02-2023 13:27-0500 Diastolic blood pressure 86 mm[Hg] Chelsi Garves [employer] [facility], [facility].; [employer]. Comment on above: Patient Position: Sitting; Cuff Location : Left Arm; Cuff Size: Standard 05-02-2023 13:27-0500 Heart rate 92 /min Chelsi Graves F[employer]HER [facility], [employer].; [employer], [employer]. Comment on above: Pattern: Regular 05-02-2023 13:27-0500 Systolic blood pressure 122 mm[Hg] Chelsi Graves LPN [facility], Inc.; [employer]. Comment on above: Patient Position: Sitting; Cuff Location : Left Arm; Cuff Size: Standard 02-19-2022 13:09-0400 Body height 158.75 cm Chelsi Graves [facility], Inc.; [employer] [facility], Inc[employer] 02-19-2022 13:09-0400 Body mass index (BMI) [Ratio] 35.82 kg/m2 Cehlsi Graves [facility], Inc.; [employer] 02-19-2022 13:090400 Body surface area Derived from formula 1.92 m2 Chelsi Graves [facility], Inc.; [employer] 02-19-2022 13:090400 Body weight 90.27 kg Chelsi Graves [facility], [facility].; [employer], [employer]. 02-19-2022 13:09-0400 Diastolic blood pressure 77 mm[Hg] Chelsi Graves [facility], Inc.; [employer] Comment on above: Patient Position: Sitting; Cuff Location : Left Arm; Cuff Size: Standard 02-19-2022 13:09-0400 Heart rate 64 /min Chelsi Graves [facility], Inc.; [employer], [employer]. Comment on above: Pattern: Regular 02-19-2022 13:09-0400 Systolic blood pressure 116 mm[Hg] Chelsi Graves [facility], [facility].; [employer], [employer] Comment on above: Patient Position: Sitting; Cuff Location : Left Arm; Cuff Size: Standard 11-01-2021 13:44-0400 Body height 158.75 cm Anna Nelida [facility], Inc.; [employer], [employer] 11-01-2021 13:44-0400 Body mass index (BMI) [Ratio] 36 kg/m2 Anna Nelida [facility], Inc.; [employer], [employer] 11-01-2021 13:44-0400 Body surface area Derived from formula 1.92 m2 Anna Nelida [facility], Inc.; [employer], [employer] 11-01-2021 13:44-0400 Body temperature 101.4 [degF] Anna Nelida [facility], [employer].; [employer]. Comment on above: Method: Tympanic 11-01-2021 13:44-0400 Body weight 90.72 kg Anna Krause [facility], Inc.; [employer] 11-01-2021 13:44-0400 Diastolic blood pressure 77 mm[Hg] Anna Krause [facility].; [employer] Comment on above: Patient Position: Sitting; Cuff Location : Left Arm; Cuff Size: Large 11-01-2021 13:44-0400 Heart rate 105 /min Anna Krause [facility].; [employer]. Comment on above: Pattern: Regular 11-01-2021 13:44-0400 Systolic blood pressure 109 mm[Hg] Anna Krause [facility].; [employer]. Comment on above: Patient Position: Sitting; Cuff Location : Left Arm; Cuff Size: Large 09-13-2021 08:110400 Body height 158.75 cm Chelsi Graves [facility], [facility].; [employer]. 09-13-2021 08:110400 Body mass index (BMI) [Ratio] 35.82 kg/m2 Chelsi Graves [facility].; [employer]. 09-13-2021 08:110400 Body surface area Derived from formula 1.92 m2 Chelsi Graves [facility], [facility].; [employer] [facility]. 09-13-2021 08:110400 Body weight 90.27 kg Chelsi Graves [facility].; [employer]. 09-13-2021 08:110400 Diastolic blood pressure 80 mm[Hg] Chelsi Graves [facility] [employer].; [employer]. Comment on above: Patient Position: Sitting; Cuff Location : Left Arm; Cuff Size: Standard 09-13-2021 08:110400 Heart rate 82 /min Chelsi Graves [facility].; [employer]. Comment on above: Pattern: Regular 09-13-2021 08:11-0400 Systolic blood pressure 114 mm[Hg] Chelsi Graves LPN [facility] [employer].; [facility] [employer]. Comment on above: Patient Position: Sitting; Cuff Location : Left Arm; Cuff Size: Standard 02-28-2021 13:29040 Body height 160 cm Paramjit Langford MD Work Phone: [facility] 02-28-2021 13:040 Body weight 91.13 kg Paramjit Langford MD Work Phone: [facility] 02-28-2021 13:040 Diastolic blood pressure 69 mm[Hg] Paramjit Langford MD Work Phone: [facility] 02-28-2021 13:040 Heart rate 82 /min Paramjit Langford MD Work Phone: [facility] 02-28-2021 13:29-0400 Systolic blood pressure 102 mm[Hg] Paramjit Langford MD Work Phone: [facility] Encounters Encounter Date Encounter Type Care Provider Facility Start: 12-23-2023 ambulatory SEAN Drake BENNETT [facility] Start: 12-13-2023 End: 12-13-2023 Office outpatient visit 15 minutes Sean Ortizer PA-C Work Phone: [employer] Start: 12-13-2023 Review Sean Bennett PA-C Work Phone: [employer] Start: 08-09-2023 End: 08-09-2023 Office outpatient visit 15 minutes Sean Bennett PA-C Work Phone: [employer]. Start: 06-21-2023 End: 06-21-2023 ambulatory SEAN Drake BENNETT [facility] Start: 06-20-2023 ambulatory SEAN Drake BENNETT [facility] Start: 06-19-2023 End: 06-19-2023 Orders Sean Bennett PA-C Work Phone: [employer]. Start: 06-14-2023 End: 06-14-2023 Office outpatient visit 15 minutes Sean Bennett PA-C Work Phone: [employer]. Start: 06-10-2023 End: 06-11-2023 ambulatory SEAN BENNETT [facility] Start: 06-10-2023 End: 06-10-2023 Subsequent hospital visit by physician Seth Lima DO Work Phone: [facility] Comment on above: Polyarthralgia; Fibromyalgia Start: 05-29-2023 ambulatory SETH LIMA [facility] Start: 05-29-2023 End: 05-29-2023 ambulatory SETH LIMA [facility] Start: 05-24-2023 ambulatory SETH LIMA [facility] Start: 05-17-2023 End: 05-17-2023 Medication Sean Bennett PA-C Work Phone: [employer]. Start: 05-16-2023 End: 05-16-2023 ambulatory SEAN BENNETT [facility] Start: 05-15-2023 End: 05-15-2023 Orders Sean Bennett PA-C Work Phone: [employer]. Start: 05-08-2023 End: 05-08-2023 Orders Sean Bennett PA-C Work Phone: [employer]. Start: 05-08-2023 End: 05-08-2023 Medication Sean Bennett PA-C Work Phone: [employer]. Start: 05-02-2023 End: 05-02-2023 Office outpatient visit 25 minutes Sean Bennett PA-C Work Phone: [employer]. Start: 02-18-2023 End: 02-19-2023 Telephone follow-up Sean Bennett PA-C Work Phone: [employer] Start: 02-19-2022 End: 02-19-2022 Office outpatient visit 5 minutes Sean Bennett PA-C Work Phone: [employer] Start: 11-01-2021 End: 11-01-2021 Patient encounter procedure Sean Bennett PA-C Work Phone: [employer] Start: 09-18-2021 End: 09-18-2021 Orders Sean Bennett PA-C Work Phone: [employer] Start: 09-13-2021 End: 09-13-2021 Patient encounter procedure Sean Bennett PA-C Work Phone: [employer] Start: 02-28-2021 End: 02-28-2021 Patient encounter procedure Paramjit Langford MD Work Phone: Neurology Comment on above: Chronic migraine wit hout aura, with intractable migraine, so stated, with status migrainosus (Primary Dx); Neck pain Procedures Date Procedure Procedure Detail Performing Clinician Start: 05-02-2023 End: 05-17-2023 soft tissue head & neck real time imge docm Sean Bennett PA-C Work Phone: Start: 02-19-2022 End: 02-19-2022 Removal sutures under anesthesia same surgeon Sean Bennett PA-C Work Phone: Start: 05-06-2021 End: 05-06-2021 Mass removed from Head Anna Krause [employer] Comment on above: Done in [place] H/O: surgery History of ear surgery hCelsi Graves LPN H/O: surgery History of ear surgery Yvonne Bennett PA-C Work Phone: H/O: surgery History of ear surgery Re Garcia LPN H/O: surgery History of ear surgery Re Garcia LPN H/O: surgery History of ear surgery Re Garcia LPN Plan of Treatment Date Care Activity Detail Author Start: 08-09-2023 Sedimentation rate r bc automated ESR (SED RATE) (99089) Start: 09-Aug-2023 09:45-04:00 Request [employer]; [employer] Start: 08-09-2023 C-reactive protein C-REACTIVE PROTEIN (09497) Start: 09-Aug-2023 09:45-04:00 Request [employer]. Start: 08-09-2023 Blood count complete auto&auto difrntl wbc CBC, PLATELETS & AUT DIFF (F) ([id number]) Start: 09-Aug-2023 09:45-04:00 Request [employer]. Start: 06-21-2023 End: 06-21-2023 Patient encounter procedure 06/21/2023 1:40 PM EST Office Visit [facility] [address] [place] [id number] Seth Lima DO [address] [place] [phone] Discharge Disposition: Home or Self Care [facility] Start: 06-19-2023 Ova&parasites direct smears concentration & id OVA & PARASITES ([id number]) Start: 19-Jun-2023 13:51 Request [employer].; [employer], [employer]. Start: 06-19-2023 Iaad ia giardia Giardia Antige n ([id number]) Start: 19-Jun-2023 13:51 Request [employer], [employer]. Start: 06-19-2023 Cul bact stool aerob ic addl pathogens&id ea Stool Culture (09048) Start: 19-Jun-2023 13:51 Request [employer].; [employer], [employer]. Start: 06-19-2023 Iaad ia mult step me thod nos each organism Clostridium difficile Toxin/GDH with Reflex to PCR ([id number]) Start: 19-Jun-2023 13:50 Request [employer], [employer]. Start: 06-19-2023 Comprehensive metabo lic panel CMP w/ GFR* ([id number]) Start: 19-Jun-2023 13:50 Request [employer].; [employer], [employer]. Start: 06-19-2023 Blood count complete auto&auto difrntl wbc CBC, PLATELETS & AUT DIFF (F) ([id number]) Start: 19-Jun-2023 13:50 Request [employer]; [employer]. Start: 05-23-2023 Nursing evaluation o f patient and report Medical; Nurse visit - labs [employer]. Start: 23-May-2023 14:00 NURSE, FLOAT Appointment Request [employer] Start: 05-15-2023 Assay of ferritin FERRITIN (82 728) Start: 15-May-2023 15:24 Request [employer]; [employer]. Start: 05-15-2023 Sedimentation rate r bc automated ESR (SED RATE) ([id number]) Start: 15-May-2023 15:24 Request [employer]; [employer]. Start: 05-15-2023 C-reactive protein C-REACTIVE PROTEIN (31371) Start: 15-May-2023 15:24 Request [employer]; [employer]. Start: 05-02-2023 Comprehensive metabo lic panel CMP w/ GFR* ([id number]) Start: 02-May-2023 14:11 Request [employer]; [employer]. Start: 05-02-2023 Blood count complete auto&auto difrntl wbc CBC, PLATELETS & AUT DIFF (F) ([id number]) Start: 02-May-2023 14:11 Request [employer]; [employer]. Start: 05-02-2023 Rheumatoid factor quantitative RHEUMATOID FACTOR-QUANT (09879) Start: 02-May-2023 14:11 Request [employer]; [employer]. Start: 05-02-2023 Antibody borrelia burgdorferi lyme disease Lyme Titer/EIA, reflex IgM and IgG (59768) Start: 02-May-2023 14:11 Request [employer]. Start: 05-02-2023 Antinuclear antibodi es clyde CLYDE TITER AND PATTERN (13932) Start: 02-May-2023 14:11 Request [employer]; [employer]. Start: 05-02-2023 Us soft tissue head & neck real time imge docm Thyroid Ultrasound (92098) Start: 02-May-2023 Intent [facility], [facility].; [facility], [facility]. Start: 01-04-2023 Influenza vaccinatio n given INFLUENZA VACCINE (#1) [facility] Start: 01-04-2021 Influenza vaccination INFLUENZA (#1) [facility] Start: 2019 HPV TESTING HPV TESTING [facility] Start: 2010 PAP TESTING PAP TESTING [facility] Start: 01-22-2008 Urine microalbumin profile DTAP,TDAP,TD (1 - Tdap) [facility] Start: 2007 ANNUAL WELLNESS VISIT ANNUAL WELLNES S VISIT [facility] Start: 2007 HEPATITIS C SCREENING HEPATITIS C SC REENING [facility] Start: 2007 HIV SCREENING HIV SCREENING [facility] Start: 2001 Adult depression screening assessment DEPRESSION SCREENING [facility] Start: 2001 COVID-19 VACCINE (1) COVID-19 VACCIN E (1) [facility] Start: 2001 Depression screening using PHQ-9 (Patient Health Questionnaire 9) score DEPRESSION SCREENING [facility] Start: 01-22-2000 Administration of diphtheria + tetanus + acellular pertussis vaccine DTAP/TDAP/TD VACCINE (1 - Tdap) [facility] Start: 1989 COVID-19 VACCINE (#1) COVID-19 VACCI NE (#1) [facility] Start: 1989 [facility] Start: 1989 Screening for malign ant neoplasm of cervix [facility] End: 06-10-2023 XR [facility] Comment on above: 1 Occurrences starti ng 06/10/2023 until 06/10/2023 End: 06-10-2023 XR Foot - right 3 Views [employer] Comment on above: 1 Occurrences starti ng 06/10/2023 until 06/10/2023 End: 06-10-2023 XR Hand - bilateral 2 Views [facility] Work Phone: Comment on above: 1 Occurrences starti ng 06/10/2023 until 06/10/2023 Payers Date Payer Category Payer Unknown [employer] P AY [employer] PAY GENERIC [id number] 2020-Present Other [id number] 1989 Unknown [id number] 1989 Unknown [id number] Unknown 22 3 Unknown Social History Date Type Detail Facility Start: 02-28-2021 End: 05-29-2023 Tobacco smoking status NHIS Never smoker [facility] Start: 02-28-2021 End: 05-29-2023 Tobacco use and exposure Never used [facility] Start: 1990 Sex Assigned At Not on file [facility] Start: 05-29-2023 Caffeine Use Caffeine Use [facility] [employer]; [employer]. Tobacco Use: Tobacco Use: ; N ever smoker. [employer]. Female [facility] [employer]; [employer]. Work Phone: Start: 05-29-2023 Alcohol intake Lifetime non-d paulina (finding) [facility] [facility] Start: 05-29-2023 Tobacco use panel [facility] Instructions 02-28-2021 Patient Instructions Note Date & Type Note Facility 02-28-2021 Instructions Paramjit Langford MD - 02/28/2021 1:55 PM EDT Cymbalta daily for migraine prevention Maxalt as needed for migraine rescue Continue massage therapy as needed Follow up in 4 months documented in this encounter [facility] History of Present illness Narrative 02-28-2021 [...] hit with a softball in the left cheondoism. No obvious worsening of headaches at that [...] in rate, volume and articulation. 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 documented in this encounter [facility] Evaluation note Note Date & Type Note Facility Evaluation note Diagnosis Chronic migraine without aura, with intractable migraine, so stated, with status migrainosus- Primary Neck pain Cervicalgia documented in this encounter [facility] Evaluation note Note Date & Type Note Facility Evaluation note Diagnosis Polyarthralgia Pain in joint, multiple sites Fibromyalgia Mylagia and myositis, unspecified documented in this encounter [facility] Summary Purpose Family History No Family History Records FoundNo Family History Records FoundNo Family History Records FoundNo Family History Records FoundNo Family History Records Found Advance Directives No Advanced Directives Records FoundNo Advanced Directives Records FoundNo Advanced Directives Records FoundNo Advanced Directives Records FoundNo Advanced Directives Records Found Additional Source Comments INFORMATION SOURCE (unrecogn ized section and content) DATE CREATED AUTHOR 06/02/2020 [facility] DATE CREATED AUTHOR AUTHOR'S ORGANIZ ATION 09/14/2022 [facility] DATE CREATED AUTHOR AUTHOR'S ORGANIZ ATION 07/05/2023 [facility] DATE CREATED AUTHOR AUTHOR'S ORGANIZ ATION 08/13/2023 [facility] DATE CREATED AUTHOR AUTHOR'S ORGANIZ ATION 12/23/2023 [facility] Source Comments (unrecognize d section and content) In the event this informatio n is protected by the Federal Confidentiality of Alcohol and Drug Abuse Patient Records regulations: The Federal rules restrict any use of the information to criminally investigate or prosecute any alcohol or drug abuse patient.[facility] Reason for Visit (unrecogniz ed section and content) Reason Comments Headaches Status Reason Specialty Diagnoses / Procedures Referred By Contact Referred To Contact Closed 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 [employer] provides no warranty or guarantee of the accuracy or completeness of information in this document.
== END | disposition home or self-care (01) ==
PROVIDERS: PCP Physician Assistant; Referring Provider Urology; Visit Provider Urology
DX: R10.9 Unspecified abdominal pain (principal); N39.0 Urinary tract infection, site not specified; Z87.442 Personal history of urinary calculi
CPT/HCPCS: 74176

== ENCOUNTER 2024-04-05 19:00 | Emergency (ER) | payer OTHER, SELFPAY ==
[2024-04-05 19:01] VITALS: BP 126/87; PULSE 95; RESP 18; TEMP 36.2; O2SAT 96; BMI 38.7
[2024-04-05 19:15] VITALS: BMI 38.9
[2024-04-05 19:39] LABS: Bedside Glucose 95 mg/dL (74-106)
--- NOTE | 2024-04-05 20:17 | CT_ITS ---
EXAM: CT HEAD WITHOUT INTRAVENOUS CONTRAST CLINICAL INDICATION: Paresthesias TECHNIQUE: Multiple axial images were obtained of the head without intravenous contrast. This CT exam was performed using one or more of the following dose reduction techniques: automated exposure control, adjustment of the mA and/or kV according to patient size, and/or use of iterative reconstruction technique. COMPARISON: No relevant prior studies available. FINDINGS: BRAIN AND EXTRA-AXIAL SPACES: Perivascular space rather than chronic lacunar infarct adjacent to the left basal ganglia. Otherwise, no significant abnormality. No intra- or extra-axial hemorrhage. No evidence of acute infarct. No intracranial mass or mass effect. There is preservation of the cavazos/white matter interface. Ventricles are appropriate for age. Basal cisterns are patent. BONES/JOINTS: No significant abnormality. No discrete lytic or blastic abnormalities. SOFT TISSUES: Occipital parietal scalp scarring. SINUSES: No significant findings. MASTOID AIR CELLS: No significant effusion. ORBITS: No acute findings. CT/Brain/Head without Contrast IMPRESSION: 1. Occipital parietal scalp scarring. 2. No CT evidence of acute intracranial pathology. Electronically Signed: Larry Morfin DO at 20:48 EST ,
[2024-04-05 20:20] LABS: Absolute Lymphocyte Count 2.76 X10^3/uL (0.83-4.51); Absolute Neutrophil Count 4.2 X10^3/uL (2.0-7.7); Basophil# 0.06 X10^3/uL; Basophil% 0.8 % (0-1); Eosinophil# 0.14 X10^3/uL; Eosinophils% 1.8 % (0-5); Hematocrit 39.8 % (37-47); Hemoglobin 12.8 g/dL (12.0-15.0); Lymphocyte # 2.76 X10^3/ul (0.83-4.51); Lymphocyte % 35.2 % (19-41); Mean Corp Hgb Conc 32.2 g/dL (32-36); Mean Corpuscular Hgb 26.1 pg (27.0-32.0); Mean Corpuscular Volume 81.2 fL (81-99); Mean Platelet Vol. 8.7 fl (6.2-12.0); Monocyte# 0.64 X10^3/uL; Monocyte% 8.2 % (0-10); NRBC Flagged by Analyzer 0 % (0-5); Neutrophil # 4.22 X10^3/uL (2.7-7.7); Neutrophil % 53.7 % (47-70); Platelet Count 256 K/mm3 (150-450); RBC Distribution Width CV 14.6 % (11.6-14.6); RBC Distribution Width SD 42.9 fl (35.1-43.9); White Blood Count 7.8 K/mm3 (4.4-11.0)
--- NOTE | 2024-04-05 20:25 | EX.ED.DYSGE1 ---
HPI <SAM Newell - Last Filed: 04/05/24 21:27> History of Present Illness Chief Complaint: Neuro S/Sx Narrative Narrative: Patient presenting today with paresthesias to the left side of her face, left hand, and bottom of the left foot and intermittent twitching to her left eye that started earlier today. She reports that she has had the same symptoms 3-4 times this year, they usually last a few days and then they go away. She does report a history of Lyme's disease and Crohn's disease. She denies any history of diabetes, fevers, chills, and weakness. PFSH <SAM Newell - Last Filed: 04/05/24 21:27> [facility] Medical History Hx: UTI (urinary tract infection) Gross hematuria Endometriosis Wears glasses Anxiety Bladder disease Fatty liver Easy bruising Back pain Migraine headache Injury of head and neck Syncope Dietary restriction History of GI bleed Gastric reflux History of Crohn's disease Non-smoker Shortness of breath on exertion Leg cramps History of pain when walking History of edema Hx of Lyme disease Home Medications ?Medication ?Instructions ?Recorded ?Last Taken ?Type duloxetine 30 mg capsule,delayed 30 mg PO DAILY 12/21/22 Unknown History release omeprazole 20 mg tablet,delayed 20 mg PO DAILY PRN GERD 12/21/22 Unknown History release Allergy/AdvReac Type Severity Reaction Status Date / Time succinylcholine Allergy Unknown Other Verified 04/05/24 19:01 adhesive tape AdvReac Rash Verified 04/05/24 19:01 Surgical History History of cystoscopy History of surgery Hx of oral surgery Hx of local excision of skin lesion History of stapedectomy History of removal of Port-a-Cath History of esophagogastroduodenoscopy (EGD) Hx of colonoscopy Social History Smoking Status: Never smoker ROS <SAM Newell - Last Filed: 04/05/24 21:27> ROS ED Constitutional Constitutional ED: Denies chills or fever(s) Eyes Eyes: Denies change in vision Cardiovascular Cardiovascular: Denies chest pain Respiratory/Chest Respiratory/Chest: Denies dyspnea Gastrointestinal Gastrointestinal: Denies abdominal pain, nausea or vomiting Genitourinary Genitourinary ED: Denies dysuria, hematuria or urinary frequency Musculoskeletal Musculoskeletal: Denies arthralgias or myalgias Integumentary Denies rash Neurologic Neurologic: Reports paresthesias EXAM <SAM Newell - Last Filed: 04/05/24 21:27> Physical Exam Const Vital Signs: 04/05/24 19:01 04/05/24 21:00 04/05/24 21:23 Temperature 97.1 F L 98.3 F Temperature Source Temporal Pulse Rate 95 69 69 Respiratory Rate 18 16 16 Blood Pressure 126/87 H 112/73 112/73 Blood Pressure Mean 100 86 86 Pulse Ox 96 97 97 Oxygen Delivery Method Room Air Room Air Positive well nourished, well developed and no apparent distress General Appearance ED: well developed HEENT Reports normocephalic and head/scalp atraumatic Mouth ED: Yes moist mucous membranes normal Eyes PERRL and EOMs intact bilaterally Neck full ROM and supple Chest Wall inspection of chest normal Resp normal respiratory effort and clear to auscultation bilaterally Cardio regular rate and regular rhythm GI soft to palpation, non-tender, non-distended and no masses Back/Spine normal ROM and normal to inspection Extremity normal to inspection and full ROM Neuro oriented x3, CN's II-XII intact bilaterally, moves all extremities, no focal motor deficits and no sensory deficits noted Neuro Narrative: Patient reports slightly diminished sensation to the left side of her face, left hand, and bottom of the left foot in comparison with the right side. Otherwise sensation is intact. The remainder of her neurological exam is unremarkable. Sensorium / Orientation: awake and alert Speech: speech normal Gait (Neuro): normal gait Motor Exam: strength 5/5 throughout Psych mental status grossly normal and thought process normal Skin no rashes or lesions noted and no wounds <Dr. Alexey Boss DO - Last Filed: 04/06/24 01:34> Physical Exam Const Vital Signs: 04/05/24 19:01 04/05/24 21:00 04/05/24 21:23 Temperature 97.1 F L 98.3 F Temperature Source Temporal Pulse Rate 95 69 69 Respiratory Rate 18 16 16 Blood Pressure 126/87 H 112/73 112/73 Blood Pressure Mean 100 86 86 Pulse Ox 96 97 97 Oxygen Delivery Method Room Air Room Air [facility] <SAM Newell - Last Filed: 04/05/24 21:27> [facility] Narrative Medical decision making narrative: Patient presenting today with paresthesias to the left side of her face, left hand, and bottom of her left foot that started today. She has had similar episodes 3-4 times this year. She has never seen her PCP for this. She is nontoxic-appearing and in no acute distress, her vitals are unremarkable. On exam, she reports slight decreased sensation on the left side of her face and bottom of her left foot in comparison to the right side. Otherwise her strength and sensation is intact. The remainder of her neurological exam is within normal limits. Low suspicion for stroke. Basic labs were obtained to assess for electrolyte abnormality, CBC, BMP, and magnesium are unremarkable. POC glucose is 95. Head CT obtained to rule out intracranial abnormality and is negative. Given her age, I did consider MS. I will refer her to a neurologist for outpatient follow-up. Return instructions were discussed and patient discharged home in stable condition. Lab Data Attestation: I reviewed the patient's lab results. Labs: Laboratory Results - last 24 hr 04/05/24 04/05/24 19:22 20:12 WBC 7.8 RBC 4.90 Hgb 12.8 Hct 39.8 MCV 81.2 MCH 26.1 L MCHC 32.2 RDW Std Deviation 42.9 RDW Coeff of Anita 14.6 Plt Count 256 MPV 8.7 Immature Gran % (Auto) 0.300 Neut % (Auto) 53.7 Lymph % (Auto) 35.2 [place] % (Auto) 8.2 Eos % (Auto) 1.8 Baso % (Auto) 0.8 Absolute Neuts (auto) 4.2 Absolute Lymphs (auto) 2.76 Nucleated RBC % 0 Sodium 140 Potassium 3.7 Chloride 106 Carbon Dioxide 27.0 Anion Gap 7 BUN 14 Creatinine 0.70 Estim Creat Clear Calc 126.44 Est GFR (MDRD) Af Amer 123 Est GFR (MDRD) Non-Af 102 BUN/Creatinine Ratio 20.1 H Glucose 109 H Calcium 9.0 Magnesium 1.9 POC Glucose 95 Radiography Diagnostic Testing: Clinical Impression(s) from Imaging Studies Brain CT 04/05/24 20:17 IMPRESSION: 1. Occipital parietal scalp scarring. 2. No CT evidence of acute intracranial pathology. Electronically Signed: Larry Morfin, DO at 20:48 EST , <Dr. Alexey Boss, DO - Last Filed: 04/06/24 01:34> [facility] Narrative Medical decision making narrative: Patient presenting today with paresthesias to the left side of her face, left hand, and bottom of her left foot that started today. She has had similar episodes 3-4 times this year. She has never seen her PCP for this. She is nontoxic-appearing and in no acute distress, her vitals are unremarkable. On exam, she reports slight decreased sensation on the left side of her face and bottom of her left foot in comparison to the right side. Otherwise her strength and sensation is intact. The remainder of her neurological exam is within normal limits. Low suspicion for stroke. Basic labs were obtained to assess for electrolyte abnormality, CBC, BMP, and magnesium are unremarkable. POC glucose is 95. Head CT obtained to rule out intracranial abnormality and is negative. Given her age, I did consider MS. I will refer her to a neurologist for outpatient follow-up. Return instructions were discussed and patient discharged home in stable condition. Supervisory Physician Note Patient was seen and examined with the Advanced Practice Provider. Nursing notes and vital signs have been reviewed. Pertinent old records have been reviewed. I agree with the essential elements of the LIDIA's history, physical exam, assessment, and plan. The differential diagnosis and management options were discussed with the LIDIA. I participated in determining and agree with the management, procedures, final impression and disposition as documented. See changes noted by me. Please see addendum or separate note for any additional details. 34-year-old female with history of Lyme disease, Crohn's disease presents for evaluation of intermittent paresthesias. Patient states for the past year she has been having intermittent paresthesias. She states they come and go and develop all over the body. She states earlier today she developed some intermittent twitching of the left eye and then developed paresthesias in the left cheek, left hand, and bottom of the left foot. She states she talked to her friend about it today and they told her to present to the ED. She denies any weakness, headache, vision changes, eye pain, photophobia, fever, URI symptoms, neck pain, chest pain, shortness of breath, abdominal pain, nausea, vomiting, dysuria, aphasia, dysarthria. Gen: A&O x3, NAD Head: Normocephalic, atraumatic Eyes: No sclera icterus, conjunctiva clear, PERRL, EOMI ENT: Moist mucous membranes, No facial asymmetry, patient states she can feel my touch but that it is decreased only in the left cheek and nowhere else on the face Neck: Trachea midline, No JVD, full range of motion, no meningismus, nontender CV: RRR, no murmurs, no peripheral edema Resp: Lungs CTA BL, no w/r/c GI: Abd soft, non-distended, non-tender, no r/r/g Musc: Full ROM, no deformity, strength +5/5 in all extremities, no pronator drift, no ataxia, patient endorses decreased, touch to the left hand and bottom of the left foot although can feel me touch her Skin: Warm, dry, intact Neuro: Alert, oriented, grossly intact, no focal deficits, no aphasia, no dysarthria Psych: Cooperative, flat affect Differential diagnosis includes but is not limited to electrolyte abnormality, intracranial abnormality. Not a CVA. Patient endorses intermittent paresthesias for the past year. They come and go. She currently endorses left cheek, left hand, and bottom of left foot paresthesias. This is not consistent with a CVA. She denies any infectious or associated symptoms. Vitals are stable. Patient is nontoxic. Her neurological exam is unremarkable other than her reported paresthesias. Basic labs ordered to assess for electrolyte abnormalities. CT head ordered to assess for intracranial abnormality. CBC without leukocytosis or anemia. BMP unremarkable without electrolyte abnormality or JOSUE. Magnesium level unremarkable. Calcium level unremarkable. Glucose mildly elevated. CT head shows no acute intracranial pathology. At this point in time, no clear etiology for patient's symptoms. She states that this feels similar to her previous paresthesias. Patient stable to discharge home. Return precautions explained. Patient needs to follow-up with PCP and we will refer her to neurology. She confirmed understanding of plan. Impression: 1. Intermittent paresthesias 2. Paresthesias of the left cheek, left hand, bottom of left foot Lab Data Labs: Laboratory Results - last 24 hr 04/05/24 04/05/24 19:22 20:12 WBC 7.8 RBC 4.90 Hgb 12.8 Hct 39.8 MCV 81.2 MCH 26.1 L MCHC 32.2 RDW Std Deviation 42.9 RDW Coeff of Anita 14.6 Plt Count 256 MPV 8.7 Immature Gran % (Auto) 0.300 Neut % (Auto) 53.7 Lymph % (Auto) 35.2 [place] % (Auto) 8.2 Eos % (Auto) 1.8 Baso % (Auto) 0.8 Absolute Neuts (auto) 4.2 Absolute Lymphs (auto) 2.76 Nucleated RBC % 0 Sodium 140 Potassium 3.7 Chloride 106 Carbon Dioxide 27.0 Anion Gap 7 BUN 14 Creatinine 0.70 Estim Creat Clear Calc 126.44 Est GFR (MDRD) Af Amer 123 Est GFR (MDRD) Non-Af 102 BUN/Creatinine Ratio 20.1 H Glucose 109 H Calcium 9.0 Magnesium 1.9 POC Glucose 95 Radiography Diagnostic Testing: Clinical Impression(s) from Imaging Studies Brain CT 04/05/24 20:17 IMPRESSION: 1. Occipital parietal scalp scarring. 2. No CT evidence of acute intracranial pathology. Electronically Signed: Larry Morfin DO at 20:48 EST , Discharge Plan Triage Chief Complaint: Neuro S/Sx ED Midlevel Provider: Susan Meraz ED Provider: Alexey Boss Dx/Rx/DC Orders Clinical Impression: Paresthesia Instructions: ED Paraesthesias Prescriptions: No Action duloxetine 30 mg capsule,delayed release(DR/EC) 30 mg PO DAILY Patient Comments: TAKE ONE CAPSULE BY MOUTH DAILY omeprazole 20 mg tablet,delayed release (DR/EC) 20 mg PO DAILY PRN (Reason: GERD) Primary Care Provider: Didi Bennett Referrals: Willian Salcedo MD [Non-Staff -Ordering Privileges] - 5-7 Days Didi Bennett, PA [Primary Care Provider] - Activity Restrictions/Additional Instructions: Follow-up with neurology, return for any other concerns/worsening symptoms. Print Language: Uzbek Disposition Disposition: Home, Self Care Discharge Date/Time: 04/05/24 21:25
[2024-04-05 20:44] LABS: Anion Gap 7 (5-15); BUN 14 mg/dL (7-18); BUN/Creat Ratio 20.1 RATIO (10-20); Chloride 106 mmol/L (98-107); EST Glomerular Filtration Rate 102 mL/min (>60); Est Glom Filt Rate - Afr Amer 123 mL/min (>60); Estimated Creatinine Clearance 126.44 ml/min; Glucose 109 mg/dL (74-106); Magnesium 1.9 mg/dL (1.6-2.6); Potassium 3.7 mmol/L (3.5-5.1); Sodium Level 140 mmol/L (136-145)
[2024-04-05 21:00] VITALS: BP 112/73; PULSE 69; RESP 16; O2SAT 97
[2024-04-05 21:23] VITALS: BP 112/73; PULSE 69; RESP 16; TEMP 36.8; O2SAT 97
== END 2024-04-05 21:25 | disposition home or self-care (01) ==
PROVIDERS: Physician Assistant; Emergency Provider Surgery; PCP Physician Assistant; Visit Provider Surgery
DX: R20.2 Paresthesia of skin (principal)
CPT/HCPCS: 70450; 80048; 82962; 83735; 85025; 99283; A4216

== ENCOUNTER → 2024-06-24 | Outpatient (CLI) | payer OTHER, SELFPAY ==
--- NOTE | 2024-06-24 10:26 | MRI_ITS ---
PROCEDURE: MRI brain without and with IV contrast REASON FOR EXAM: Multiple sclerosis, numbness, visual changes, headaches TECHNIQUE: Multisequence multiplanar MR images of the brain were obtained before and after the administration of intravenous contrast. Imaging sequences were performed to best displaced suspected pathology. COMPARISON: 04/05/2024 CT FINDINGS: No diffusion restriction to suggest acute/subacute ischemia. No evidence of acute intracranial hemorrhage, midline shift or mass effect. No parenchymal signal abnormalities. Prominent perivascular space along the inferior left basal ganglia. Globes and optic nerves are intact. Paranasal sinuses and mastoid air cells are relatively clear. No pathologic enhancement. High right posterior scalp scarring. MRI/Brain W/WO Contrast IMPRESSION: No acute intracranial process, parenchymal signal abnormality or pathologic enh ancement. Reading Location: [facility]
--- NOTE | 2024-06-24 10:31 | MRI_ITS ---
PROCEDURE: MRI right shoulder without IV contrast REASON FOR EXAM: Pain TECHNIQUE: Multisequence multiplanar MR images of the right shoulder were obtained without the administration of intravenous contrast. COMPARISON: None FINDINGS Mild supraspinatus tendinopathy without tear. Infraspinatus, subscapularis and teres minor tendons are intact. No significant rotator cuff muscle atrophy or edema. Intact long head biceps tendon. No displaced labral tear or paralabral cysts. No glenohumeral joint effusion or focal chondral defects. No periarticular edema. Acromioclavicular joint alignment is maintained and there are no significant degenerative changes. Negative for acute fracture or marrow replacement. Tiny enthesopathic cysts along the posterior aspect of the greater humeral tuberosity. No significant fluid in the subacromial/subdeltoid bursa. MRI/Upper Ext Joint Only(Routine) IMPRESSION: Mild supraspinatus tendinopathy without tear. Reading Location: [facility]
== END | disposition home or self-care (01) ==
LOC: MRI 10:21
PROVIDERS: PCP Physician Assistant; Referring Provider Chiropractor; Visit Provider Chiropractor
DX: G50.1 Atypical facial pain (principal); R20.2 Paresthesia of skin; M25.512 Pain in left shoulder
CPT/HCPCS: 70553; 73221; A9575

== ENCOUNTER 2024-11-08 01:45 | Emergency (ER) | payer OTHER, SELFPAY ==
[2024-11-08 01:46] VITALS: BP 121/80; PULSE 89; RESP 16; TEMP 36.8; O2SAT 98; BMI 38.2
[2024-11-08 02:34] LABS: Hematocrit 39.0 % (37-47); Hemoglobin 12.7 g/dL (12.0-15.0); Immature Granulocytes Count 0.010 X10^3/uL (0.0-0.0); Mean Corp Hgb Conc 32.6 g/dL (32-36); Mean Corpuscular Volume 82.6 fL (81-99); Mean Platelet Vol. 8.8 fl (6.2-12.0); NRBC Flagged by Analyzer 0 % (0-5); Platelet Count 258 K/mm3 (150-450); RBC Distribution Width CV 13.7 % (11.6-14.6); RBC Distribution Width SD 41.3 fl (35.1-43.9); Red Blood Count 4.72 M/mm3 (4.2-5.4); White Blood Count 7.4 K/mm3 (4.4-11.0)
[2024-11-08 03:03] LABS: Internal QC Validated? YES +Cl - CLEAR BKGD; Pregnancy, Urine Negative Negative; Record Kit Lot#,Urine Preg 0000947241
[2024-11-08 03:46] VITALS: RESP 16; O2SAT 100
[2024-11-08] MEDS: 0.9% Normal Saline (1000mL) 1,000 ML 999 ML IV (03:47)
[2024-11-08 04:46] LABS: Anion Gap 12 (5-15); BUN 15 mg/dL (4-19); BUN/Creat Ratio 19.4 RATIO (10-20); Calcium,Total 9.2 mg/dL (7.6-11.0); Carbon Dioxide 21.6 mmol/L (21.0-32.0); Chloride 104 mmol/L (98-108); Estimated Creatinine Clearance 113.72 ml/min (50-250); Glucose 92 mg/dL (70-99); Potassium 3.6 mmol/L (3.3-5.1)
[2024-11-08 04:58] VITALS: BP 115/67; PULSE 71; RESP 16; TEMP 36.7; O2SAT 100
== END 2024-11-08 05:00 | disposition home or self-care (01) ==
PROVIDERS: Emergency Provider Emergency Medicine; PCP Physician Assistant; Visit Provider Emergency Medicine
DX: K92.2 Gastrointestinal hemorrhage, unspecified (principal); K21.9 Gastro-esophageal reflux disease without esophagitis; Z79.899 Other long term (current) drug therapy
CPT/HCPCS: 80048; 81025; 82274; 85025; 93005; 96360; 99282; A4216

== ENCOUNTER → 2024-11-26 | Outpatient (CLI) | payer OTHER, SELFPAY ==
[2024-11-26 11:49] LABS: AST(SGOT) 17 U/L (<=31); Alanine Aminotransfer ALT/SGPT 14 U/L (<=34); Albumin, Serum 4.3 g/dL (3.5-5.0); Alkaline Phosphatase 66 U/L (35-104); Bilirubin, Direct 0.15 mg/dL (0.00-0.30); CRP 6.00 mg/L (0.0-3.0); Globulin 3.1 g/dL (2.2-4.2)
[2024-11-27 14:09] LABS: ANTINUCLEAR ANTIBODIES DIRECT Negative (Negative)
[2024-11-30 16:08] LABS: ACCA 8 units (0-90); ALCA 27 units (0-60); AMCA 20 units (0-100)
== END | disposition home or self-care (01) ==
LOC: LAB 10:53
PROVIDERS: PCP Physician Assistant
DX: R19.7 Diarrhea, unspecified (principal); R10.9 Unspecified abdominal pain; K92.1 Melena
CPT/HCPCS: 36415; 80076; 83516; 86036; 86038; 86140; 86225; 86671

== ENCOUNTER 2024-12-16 17:51 | Outpatient (CLI) | payer SELFPAY, OTHER ==
--- NOTE | 2024-12-16 18:08 | CT_ITS ---
PROCEDURE: ABDOMEN/PELVIS WITH CONTRAST 12/16/2024 REASON FOR EXAM: ABDOMINAL PAIN TECHNIQUE: ABDOMEN/PELVIS WITH CONTRAST Coronal and Sagittal reconstruction series were provided. CONTRAST: Isovue 370 VOLUME: 78 mL One or more dose reduction techniques were used (e.g., Automated exposure control, adjustment of the mA and/or kV according to patient size, use of iterative reconstruction technique. RADIATION DOSE SUMMARY: CTDlvol: 40 mGy DLP: 976 mGycm COMPARISON: 03/05/2024 FINDINGS: Clear lung bases. Normal heart size. Possible tiny gallstone. Unremarkable liver, pancreas, spleen, adrenal glands, kidneys. No hydronephrosis. Normal. Normal uterus and ovaries. No retroperitoneal or pelvic adenopathy. No free air. Nondistended bowel. Normal appendix. No acute large bowel findings. No acute abdominal wall findings. CT/Abdomen/Pelvis WITH Contrast IMPRESSION: No acute findings Reading Location: [place] [address]
== END 2024-12-16 23:59 | disposition home or self-care (01) ==
LOC: CT 17:52
PROVIDERS: PCP Physician Assistant
DX: K92.1 Melena (principal); R10.9 Unspecified abdominal pain; R19.7 Diarrhea, unspecified
CPT/HCPCS: 74177; Q9967; A4216

== ENCOUNTER 2025-01-19 12:11 | Day surgery (SDC) | payer SELFPAY, OTHER ==
--- NOTE | 2025-01-14 19:43 | PAT.ANESEVAL ---
Pre-Assessment Diagnosis/Proposed Procedure Planned Operative Procedure(s): EGD, COLONOSCOPY Anesthesia History Anesthesia History - fancy sewer: Anesthesia History - fancy sewer Hx Hospitalization Yes: 07/2024 SPINAL TAP; 01/14/25 17:10 NEUROLOGICAL ISSUES Any Problems With Anesthesia Yes: DIFFICULT TIME WAKING 01/14/25 17:10 Cholinesterase deficiency No 01/14/25 17:10 You/Your Family Experience No 01/14/25 17:10 fever (hyperthermia) with Relationship Recent Exposure to Contagious No 02/28/23 10:20 Disease Does patient have nerve No 01/14/25 17:10 stimulator Patient instructed to have device shut off --Does patient have Pacemaker or ICD? When Was Last Pacemaker Check QUESTION #4 FULL TEXT: You/Your Family Experience fever (hyperthermia) with Anesthesia Last Oral Intake Last Oral intake: Last Oral Intake NPO since Meds taken in AM with sips of water? Meds patient instructed to take am of surgery PONV PONV - fancy sewer: PONV - fancy sewer Female Yes 01/14/25 17:10 HX of Motion Sickness Yes 01/14/25 17:10 HX of N/V After Surgery No 01/14/25 17:10 Non-Smoker Yes 01/14/25 17:10 Duration of Surgery greater No 01/14/25 17:10 than 60 minutes Number of Risk Factors 3 01/14/25 17:10 PONV Score Moderate Risk 01/14/25 17:10 Height & Weight Height & Weight: Anesthesia: Height & Weight Height 5 ft 3 in 12/07/24 13:54 Respiratory Assessment Respiratory Assessment - fancy sewer: Respiratory Tract Infection Hx - fancy sewer Hx Respiratory Tract Infection No 01/14/25 17:10 STOP Sleep Apnea STOP Sleep Apnea - fancy sewer: STOP Sleep Apnea - fancy sewer Hx Hypertension No 01/14/25 17:10 Hx Sleep Apnea Yes: MOUTH APPARATUS 01/14/25 17:10 CPAP No 01/14/25 17:10 BIPAP No 01/14/25 17:10 Do you snore loudly (louder than talking or can be heard Do you often feel tired/ fatigued/ sleepy during daytime? Has anyone observed you stop breathing during sleep? STOP Results Positive 01/14/25 17:10 QUESTION #5 FULL TEXT : Do you snore loudly (louder than talking or can be heard through closed doors)? 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 Specify any problems Hx of Preganancy in last 3 No 01/14/25 17:10 Months Nurse Filling Out Transfusion [email or web address] 01/14/25 17:10 & Questions: Date: 01/14/25 01/14/25 17:10 Time: 17:14 01/14/25 17:10 Patient unable to answer at this time (ie. confused, unrespo /Reproduction History /Reproductive History - fancy sewer: /Reproductive Hx- fancy sewer Hx Now No 01/14/25 17:10 Gestational Age (in weeks): EDC: Hx Hx Para Hx Section SAB No 01/14/25 17:10 [facility] Medical History (Updated 01/14/25 @ 17:28 by Daisy Gaona) Difficult intravenous access Wears hearing aid High cholesterol Sleep apnea Chronic cough History of echocardiogram Nocturia Overactive bladder Hx: UTI (urinary tract infection) Gross hematuria Endometriosis Wears glasses Anxiety Bladder disease Fatty liver Easy bruising Back pain Migraine headache Injury of head and neck Syncope Dietary restriction History of GI bleed Gastric reflux History of Crohn's disease Non-smoker Shortness of breath on exertion Leg cramps History of pain when walking History of edema Hx of Lyme disease Home Medications ?Medication ?Instructions ?Recorded ?Last Taken ?Type duloxetine 60 mg capsule,delayed 60 mg PO DAILY 11/08/24 Unknown History release omeprazole 20 mg capsule,delayed 20 mg PO DAILY 11/08/24 Unknown History release Saccharomyces boulardii 250 mg 250 mg PO BID 12/07/24 Unknown History capsule (Daily Probiotic (S. boulardii)) methenamine hippurate 1 gram tablet 1 g PO BID #180 tabs 12/15/24 Unknown Rx BIO HPF 2 cap PO TID 01/14/25 Unknown History IMMUNO COLOSTRUM 2 tab PO TID 01/14/25 Unknown History INT ENZYME 1 cap PO TID 01/14/25 Unknown History LIPID FACTORS 1 cap PO 4X/DAY 01/14/25 Unknown History Allergy/AdvReac Type Severity Reaction Status Date / Time succinylcholine Allergy Unknown Other Verified 01/14/25 17:04 adhesive tape AdvReac Rash Verified 01/14/25 17:04 Family History Mother No problems noted. Father Asthma Adrenal abnormality Surgical History (Updated 01/14/25 @ 17:25 by Daisy Gaona) History of hysteroscopy History of cystoscopy History of surgery Hx of oral surgery Hx of local excision of skin lesion History of stapedectomy History of removal of Port-a-Cath History of esophagogastroduodenoscopy (EGD) Hx of colonoscopy Social History Smoking Status: Never smoker alcohol intake: never caffeine: Yes (occasional) do you feel safe at home: Yes Audit: Pertinent Findings Pertinent Findings EKG Perinent findings: 11/08/2024. Normal sinus rhythm. Echo (EF%) pertinent findings: 08/15/2023. EF of 55%. No aortic stenosis. Recommendation Anesthesia Recommendation Anesthesia recommendation: OPTIMIZED for anesthesia
[2025-01-19] VITALS (8 sets, daily range): BP systolic 95–115; BP diastolic 52–67; PULSE 51–72; RESP 16; TEMP 36.2–36.6; O2SAT 95–100; BMI 37.5
[2025-01-19 12:45] LABS: Internal QC Validated? YES +Cl - CLEAR BKGD; Pregnancy, Urine Negative Negative; Record Kit Lot#,Urine Preg 0000964736
--- NOTE | 2025-01-19 12:46 | PCM.PRE.AN2 ---
ASA Classification* ASA Classification ASA Classification: 2 Assessment & Plan Anesthesia* Anesthesia Assessment Anesthesia Assessment: Discussed sedation and/or anesthesia options, risks, benefits, and alternatives with patient/parents/legal guardian/POA. Questions invited. The patient/parents/legal guardian/POA seems to understand and agrees to proceed with anesthesia plan. Reviewed the physical assessment, medical history, allergy history and patient home medications list prior to surgery/procedure/anesthetic and documented any changes. Performed airway and anesthesia risk assessments. Anesthesia Type Anesthesia Type: MAC History Source History Obtained from:: Patient and Chart Anesthesia Focused Assessment* Temperature: 97.8 F Pulse Rate: 72 Blood Pressure: 115/67 Respiratory Rate: 16 Pulse Ox: 99 Oxygen Delivery Method: Room Air Airway Assessment Mouth opens: >3 cm Mallampati Score: I Teeth Condition: Intact Neck Range of motion (ROM): Full ROM Labs Anesthesia Preop lab: CBC WBC 7.4 K/mm3 (4.4-11.0) 11/08/24 02:11/08/24 RBC 4.72 M/mm3 (4.2-5.4) 11/08/24 02:30 11/08/24 Hgb 12.7 g/dL (12.0-15.0) 11/08/24 02:30 11/08/24 Hct 39.0 % (37-47) 11/08/24 02:30 11/08/24 Plt Count 258 K/mm3 (150-450) 11/08/24 02:30 11/08/24 CHEMISTRY Potassium 3.6 mmol/L (3.3-5.1) 11/08/24 02:30 11/08/24 Sodium 138 mmol/L (133-145) 11/08/24 02:30 11/08/24 Magnesium 1.9 mg/dL (1.6-2.6) 04/05/24 20:12 04/05/24 BUN 15 mg/dL (4-19) 11/08/24 02:30 11/08/24 Creatinine 0.77 mg/dL (0.70-1.20) 11/08/24 02:30 11/08/24 Glucose 92 mg/dL (70-99) 11/08/24 02:11/08/24 POC Glucose 95 mg/dL (74-106) 04/05/24 19:22 04/05/24 TSH 0.91 uIU/mL (0.358-3.74) 12/10/22 14:14 12/10/22 COAG PT 13.5 SECONDS (11.7-14.9) 02/14/23 13:19 02/14/23 Urine Test Negative Negative 01/19/25 12:28 01/19/25 Pre-Assessment Diagnosis/Proposed Procedure Planned Operative Procedure(s): EGD, COLONOSCOPY Anesthesia History Anesthesia History - pattern technician: Anesthesia History - pattern technician Hx Hospitalization Yes: 07/2024 SPINAL TAP; 01/14/25 17:10 NEUROLOGICAL ISSUES Any Problems With Anesthesia Yes: DIFFICULT TIME WAKING 01/14/25 17:10 Cholinesterase deficiency No 01/14/25 17:10 You/Your Family Experience No 01/14/25 17:10 fever (hyperthermia) with Relationship Recent Exposure to Contagious No 01/19/25 12:35 Disease Does patient have nerve No 01/14/25 17:10 stimulator Patient instructed to have device shut off --Does patient have Pacemaker No 01/19/25 12:35 or ICD? When Was Last Pacemaker Check QUESTION #4 FULL TEXT: You/Your Family Experience fever (hyperthermia) with Anesthesia Last Oral Intake Last Oral intake: Last Oral Intake NPO since 09:00 01/19/25 12:35 Meds taken in AM with sips of No 01/19/25 12:35 water? Meds patient instructed to take am of surgery PONV PONV - pattern technician: PONV - pattern technician Female Yes 01/14/25 17:10 HX of Motion Sickness Yes 01/14/25 17:10 HX of N/V After Surgery No 01/14/25 17:10 Non-Smoker Yes 01/14/25 17:10 Duration of Surgery greater No 01/14/25 17:10 than 60 minutes Number of Risk Factors 3 01/14/25 17:10 PONV Score Moderate Risk 01/14/25 17:10 Height & Weight Height & Weight: Anesthesia: Height & Weight Height 5 ft 3 in 01/19/25 12:35 Weight: 96.3 kg 01/19/25 12:35 Body Mass Index (BMI) 37.5 01/19/25 12:35 Respiratory Assessment Respiratory Assessment - pattern technician: Respiratory Tract Infection Hx - pattern technician Hx Respiratory Tract Infection No 01/14/25 17:10 STOP Sleep Apnea STOP Sleep Apnea - pattern technician: STOP Sleep Apnea - pattern technician Hx Hypertension No 01/14/25 17:10 Hx Sleep Apnea Yes: MOUTH APPARATUS 01/14/25 17:10 CPAP No 01/14/25 17:10 BIPAP No 01/14/25 17:10 Do you snore loudly (louder than talking or can be heard Do you often feel tired/ fatigued/ sleepy during daytime? Has anyone observed you stop breathing during sleep? STOP Results Positive 01/14/25 17:10 QUESTION #5 FULL TEXT : Do you snore loudly (louder than talking or can be heard through closed doors)? 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 Specify any problems Hx of Preganancy in last 3 No 01/14/25 17:10 Months Nurse Filling Out Transfusion [email or web address] 01/14/25 17:10 & Questions: Date: 01/14/25 01/14/25 17:10 Time: 17:14 01/14/25 17:10 Patient unable to answer at this time (ie. confused, unrespo /Reproduction History /Reproductive History - pattern technician: /Reproductive Hx- pattern technician Hx Now No 01/14/25 17:10 Gestational Age (in weeks): EDC: Hx Hx Para Hx Section SAB No 01/14/25 17:10 Active Medications Active Medications: Current Medications Generic Name Dose Route Start Last Admin Trade Name Freq PRN Reason Stop Dose Admin Lactated Ringer's 1,000 mls @ 15 mls/hr 01/19/25 12:15 IV .Q48H SYBIL PFSH Medical History (Updated 01/18/25 @ 10:[address] Kacy Mullen MD) Dysuria Difficult intravenous access Wears hearing aid High cholesterol Sleep apnea Chronic cough History of echocardiogram Nocturia Overactive bladder Hx: UTI (urinary tract infection) Gross hematuria Endometriosis Wears glasses Anxiety Bladder disease Fatty liver Easy bruising Back pain Migraine headache Injury of head and neck Syncope Dietary restriction History of GI bleed Gastric reflux History of Crohn's disease Non-smoker Shortness of breath on exertion Leg cramps History of pain when walking History of edema Hx of Lyme disease Home Medications ?Medication ?Instructions ?Recorded ?Last Taken ?Type duloxetine 60 mg capsule,delayed 60 mg PO DAILY 11/08/24 Unknown History release omeprazole 20 mg capsule,delayed 20 mg PO DAILY 11/08/24 Unknown History release Saccharomyces boulardii 250 mg 250 mg PO BID 12/07/24 Unknown History capsule (Daily Probiotic (S. boulardii)) BIO HPF 2 cap PO TID 01/14/25 Unknown History IMMUNO COLOSTRUM 2 tab PO TID 01/14/25 Unknown History INT ENZYME 1 cap PO TID 01/14/25 Unknown History LIPID FACTORS 1 cap PO 4X/DAY 01/14/25 Unknown History Allergy/AdvReac Type Severity Reaction Status Date / Time succinylcholine Allergy Unknown Other Verified 01/19/25 12:35 adhesive tape AdvReac Rash Verified 01/19/25 12:35 Family History Mother No problems noted. Father Asthma Adrenal abnormality Surgical History History of hysteroscopy History of cystoscopy History of surgery Hx of oral surgery Hx of local excision of skin lesion History of stapedectomy History of removal of Port-a-Cath History of esophagogastroduodenoscopy (EGD) Hx of colonoscopy Social History Smoking Status: Never smoker alcohol intake: never caffeine: Yes (occasional) do you feel safe at home: Yes Review of Systems (Anesthesia) ROS Narrative System reviewed and no additional complaints, except as documented.
--- NOTE | 2025-01-19 12:49 | PCM.HP.STD ---
HPI - General General Date of Admission: 01/19/25 Date of Service: 01/19/25 Chief Complaint: Crohn's disease HPI Narrative JW JOHNSON, is a 34 F who presents regarding concerns for a presumed flare of Crohn's disease. She presented to [facility] ER on 11.08.24 for rectal bleeding that stopped before assessment and she agreed to FU with us. She reports having been diagnosed with Crohn's disease by a steel sampler in [place] about 3 years ago. She began noting blood in her stools accompanied by blood. She had seen multiple medical specialists in [place] who couldn't figure out what was wrong with me. My friend recommended a medical clinic in [place]. I go twice a year for check ups usually for my Lyme disease. She states that on her second trip to [place] in 2022, they diagnosed Crohn's and performed a fecal transplant. She reports that the transplant was curative for all of her symptoms until a few weeks ago. She is not unable to return to [place] at this time, so she is seeking care here. She denies chronic medication use for CD. She had been on sulfasalazine for a brief time. She reports her abdominal cramping and blood in stool started in October, she did a stool GI Mapping test that showed excess lactobacillus and anibal. Her last colonoscopy was in 2023 in [place], they did remove polyps but unknown number, size or pathology. She reports fatigue, frequent UTIs, loose watery stools 3 times daily with tenesmus and hematochezia. She states that she has a gluten allergy, it causes mouth sores. She has gone genetic testing at [facility]. She denies change in water supply, difficulty chewing and swallowing, cough, throat clearing, heartburn, reflux, excess gas, constipation, and melena. [facility] Medical History Dysuria Difficult intravenous access Wears hearing aid High cholesterol Sleep apnea Chronic cough History of echocardiogram Nocturia Overactive bladder Hx: UTI (urinary tract infection) Gross hematuria Endometriosis Wears glasses Anxiety Bladder disease Fatty liver Easy bruising Back pain Migraine headache Injury of head and neck Syncope Dietary restriction History of GI bleed Gastric reflux History of Crohn's disease Non-smoker Shortness of breath on exertion Leg cramps History of pain when walking History of edema Hx of Lyme disease Home Medications ?Medication ?Instructions ?Recorded ?Last Taken ?Type duloxetine 60 mg capsule,delayed 60 mg PO DAILY 11/08/24 Unknown History release omeprazole 20 mg capsule,delayed 20 mg PO DAILY 11/08/24 Unknown History release Saccharomyces boulardii 250 mg 250 mg PO BID 12/07/24 Unknown History capsule (Daily Probiotic (S. boulardii)) BIO HPF 2 cap PO TID 01/14/25 Unknown History IMMUNO COLOSTRUM 2 tab PO TID 01/14/25 Unknown History INT ENZYME 1 cap PO TID 01/14/25 Unknown History LIPID FACTORS 1 cap PO 4X/DAY 01/14/25 Unknown History Allergy/AdvReac Type Severity Reaction Status Date / Time succinylcholine Allergy Unknown Other Verified 01/19/25 12:35 adhesive tape AdvReac Rash Verified 01/19/25 12:35 Family History Mother No problems noted. Father Asthma Adrenal abnormality Surgical History History of hysteroscopy History of cystoscopy History of surgery Hx of oral surgery Hx of local excision of skin lesion History of stapedectomy History of removal of Port-a-Cath History of esophagogastroduodenoscopy (EGD) Hx of colonoscopy Social History Smoking Status: Never smoker alcohol intake: never caffeine: Yes (occasional) do you feel safe at home: Yes ROS Constitutional Constitutional: Denies fatigue, fever(s), poor appetite, weight gain or weight loss Gastrointestinal Gastrointestinal: Denies belching, bloating, change in bowel habits, change in stool character, chewing difficulty, coffee ground emesis, constipation, cramping, diarrhea, dyspepsia, dysphagia, early satiety, excessive flatus, fecal incontinence, heartburn, hematemesis, hematochezia, hemorrhoids, loose stools, melena, nausea, odynophagia, rectal bleeding, tenesmus, vomiting or weight changes Vital Signs Vital Signs Vital Signs: 01/19/25 12:35 01/19/25 12:35 Temperature 97.8 F Temperature Source Temporal Pulse Rate 72 Respiratory Rate 16 Respiratory Pattern Normal Blood Pressure 115/67 Blood Pressure Mean 83 Blood Pressure Source Monitor Blood Pressure Position Semi-Fowlers Blood Pressure Location Right Arm Pulse Ox 99 Oxygen Delivery Method Room Air Weight Weight: 212 lb 4.882 oz Body Mass Index (BMI) 37.5 Physical Exam Const alert, oriented x3, no apparent distress and healthy appearing General Appearance: cooperative GI normal to inspection, nondistended, normoactive bowel sounds, soft to palpation, non-tender and non-distended Percussion: normal to percussion Rectal Exam: deferred Results Lab / Micro Data Labs: Laboratory Results - last 24 hr 01/19/25 12:28: Urine Test Negative Assessment & Plan Assessment/Plan (1) Diarrhea: QUALIFIERS: Diarrhea type: unspecified type Qualified Code(s): R19.7 - Diarrhea, unspecified (2) Abdominal pain: QUALIFIERS: Abdominal location: generalized Qualified Code(s): R10.84 - Generalized abdominal pain (3) Hematochezia: PLAN: Assessment and Plan Assessment and Plan (1) Hematochezia: Status: Acute (2) Diarrhea: Status: Acute Qualifiers: Diarrhea type: unspecified type Qualified Code(s): R19.7 - Diarrhea, unspecified (3) Abdominal pain: Status: Acute Qualifiers: Abdominal location: generalized Qualified Code(s): R10.84 - Generalized abdominal pain Orders: Orders Calprotectin, Stool 11/26/24 K92.1 - Melena, R10.9 - Unspecified abdominal pain, R19.7 - Diarrhea, unspecified IBD Expanded Profile 11/26/24 K92.1 - Melena, R10.9 - Unspecified abdominal pain, R19.7 - Diarrhea, unspecified CLYDE w/ Reflex Mult Confirm 11/26/24 K92.1 - Melena, R10.9 - Unspecified abdominal pain, R19.7 - Diarrhea, unspecified CRP 11/26/24 K92.1 - Melena, R10.9 - Unspecified abdominal pain, R19.7 - Diarrhea, unspecified Liver Profile 11/26/24 K92.1 - Melena, R10.9 - Unspecified abdominal pain, R19.7 - Diarrhea, unspecified Abdomen/Pelvis WITH Contrast 11/26/24 K92.1 - Melena, R10.9 - Unspecified abdominal pain, R19.7 - Diarrhea, unspecified Plan JW JOHNSON, is a 34 F who presents to the office today for establishment with [facility] regarding concerns for a presumed flare of Crohn's disease. She presented to [facility] ER on 11.08.24 for rectal bleeding that stopped before assessment and she agreed to FU with us. She reports having been diagnosed with Crohn's disease by a steel sampler in [place] about 3 years ago. With the increased difficulty of obtaining her medical records from the clinic in [place], I advised starting with biochemical testing to help confirm her diagnosis of CD. She is in agreement. Discussed testing and care plan with her. stool for calprotectin blood for IBD CT abd/pelvis consider colonoscopy office FU with results
[2025-01-19] MEDS: Lactated Ringers 1,000 ML 15 ML IV (13:01)
--- NOTE | 2025-01-19 13:30 | COLBX_PTH ---
PATIENT: JW JOHNSON LOC: EN U#:[id number] AGE/SX: 34/F ROOM: RE01/19/[address]: Dr. Neal Moreno DO : 1990 BED: DIS: 01/19/2025 SPEC #: [id number] RECD: 01/19/25 15:59 STATUS: CARLOS MANUEL REBlane #: [id number] SHIN: 01/19/25 13:[address]: Neal Moreno DEPT: SURGICAL PATHOLOGY RECD BY: Tonio Almendarez ENTERED: 01/20/25 11:42 SP TYPE: COLON BX OTHR DR: SAM Bond Tissues: A - Duodenum, NOS B - Gastric mucous membrane C - Ileum, NOS D - COLON BIOPSY Procedures: Immunohistochemical Stains Surgery Specimen Level IV HEADER OPERATION: Colonoscopy, EGD with biopsy PRE-OP DIAGNOSIS: Diarrhea, abdominal pain, hematochezia TISSUE SUBMITTED: A- Duodenum biopsy, B- Gastric body biopsy, C- Terminal ileum biopsy, D- Random colon biopsy MICROSCOPIC DIAGNOSIS A. Small intestine, duodenum, biopsies: - Benign without active inflammation or architectural distortion B. Stomach, body: - Oxyntic mucosa with slight chronic inflammation - An immunohistochemical stain for Helicobacter pylori is negative C. Small intestine, terminal ileum: - Benign ileal mucosa without active inflammation or architectural distortion D. Large intestine, random: - Benign without active inflammation or architectural distortion MICROSCOPIC DESCRIPTION Slides are reviewed. All matched controls reacted appropriately. These tests were developed and their performance characteristics determined by [facility]. They may not have been cleared or approved by the U.S. Food and Drug Administration. The FDA has determined that such clearance or approval is not necessary. The above immunohistochemical/dualISH markers are viewed by the Pathologist. GROSS DESCRIPTION A. Received in fixative is one container labeled with the patient's name and designated Duodenum biopsy. The specimen consists of three irregular fragments of light alvarez tissue that measure 0.3 to 0.4 cm. The specimen is totally submitted in one cassette. B. Received in fixative is one container labeled with the patient's name and designated Gastric body biopsy. The specimen consists of two irregular fragments of light alvarez tissue that measure 0.6 and 1 cm. The specimen is totally submitted in one cassette. C. Received in fixative is one container labeled with the patient's name and designated Terminal ileum biopsy. The specimen consists of two irregular fragments of light alvarez tissue, each measuring 0.4 cm. The specimen is totally submitted in one cassette. D. Received in fixative is one container labeled with the patient's name and designated Random colon biopsy. The specimen consists of multiple irregular fragments of light alvarez tissue that in aggregate measure 1.3 x 0.8 x 0.1 cm. The specimen is totally submitted in one cassette. LA 01/20/2025 CPT:[id number]
--- NOTE | 2025-01-19 14:31 | PCM.POST.ANE ---
Anesthesia: Postop Eval I Current Vital Signs Temperature: 97.2 F Pulse Rate: 53 Blood Pressure: 105/61 Respiratory Rate: 16 Pulse Ox: 97 Oxygen Delivery Method: Room Air Assessment Airway patent: Yes Spontaneous unlabored respirations: Yes Mental status: Asleep nausea: No Vomiting: No Anesthesia Complication: No Fluid Hydration Crystalloid volume administer (ml): 700 Total IV fluid infused: 700 Progress Note Anesthesia document: Postop Eval 1 completed: Yes
--- NOTE | 2025-01-19 14:38 | OP.PROVAT_ITS ---
01/19/2025 Didi Bennett Re : Upper GI endoscopy procedure for Rossy Alva Donald This procedure was performed on Sunday, January 19, 2025. My impressions and recommendations are as follows: Impressions : - Normal esophagus. - Erythematous mucosa in the gastric body. Biopsied. - Erythematous duodenopathy. Biopsied. Recommendations : - Await pathology results. - Continue present medications. My findings are described in the full procedure note, which is enclosed. If I can be of further assistance, please feel free to contact me at . Sincerely, Neal Moreno, 01/19/2025 2:38:06 PM This report has been signed electronically.
--- NOTE | 2025-01-19 14:38 | OP.EGD_ITS ---
Patient Name: Rossy Hayes Procedure Date: 01/19/2025 1:51 PM Date of : 1990 Age: 34 Procedure: Upper GI endoscopy Indications: Epigastric abdominal pain, Abdominal pain in the left upper quadrant Providers: Neal Moreno DO Referring MD: Didi Bennett Medicines: Monitored Anesthesia Care Patient Profile: This is a 34 year old female. Refer to note in patient chart for documentation of history and physical. Patient has symptoms of acute abdominal cramping, acute left upper quadrant abdominal pain, chronic epigastric abdominal pain, acute dyspepsia and acute nausea. Complications: No immediate complications. Procedure: Pre-Anesthesia Assessment: - Prior to the procedure, a History and Physical was performed, and patient medications and allergies were reviewed. The patient is competent. The risks and benefits of the procedure and the sedation options and risks were discussed with the patient. All questions were answered and informed consent was obtained. Patient identification and proposed procedure were verified by the physician in the pre-procedure area. Mental Status Examination: alert and oriented. Airway Examination: normal oropharyngeal airway and neck mobility. Respiratory Examination: clear to auscultation. CV Examination: normal. Prophylactic Antibiotics: The patient does not require prophylactic antibiotics. Prior Anticoagulants: The patient has taken no anticoagulant or antiplatelet agents except for NSAID medication. ASA Grade Assessment: II - A patient with mild systemic disease. After reviewing the risks and benefits, the patient was deemed in satisfactory condition to undergo the procedure. The anesthesia plan was to use monitored anesthesia care (MAC). Immediately prior to administration of medications, the patient was re-assessed for adequacy to receive sedatives. The heart rate, respiratory rate, oxygen saturations, blood pressure, adequacy of pulmonary ventilation, and response to care were monitored throughout the procedure. The physical status of the patient was re-assessed after the procedure. After obtaining informed consent, the endoscope was passed under direct vision. Throughout the procedure, the patient's blood pressure, pulse, and oxygen saturations were monitored continuously. The pediatric colonoscope was introduced through the mouth, and advanced to the third part of the duodenum. Small bowel enteroscopy was deemed necessary. The upper GI endoscopy was accomplished without difficulty. The patient tolerated the procedure well. Scope In: 2:02:16 PM Scope Out: 2:06:36 PM Total Procedure Duration Time 0 hours 4 minutes 20 seconds Findings: The examined esophagus was normal. Patchy mildly erythematous mucosa without bleeding was found in the gastric body. Biopsies were taken with a cold forceps for histology. Biopsies were taken with a cold forceps for Helicobacter pylori testing. Verification of patient identification for the specimen was done. Patchy mildly erythematous mucosa without active bleeding and with no stigmata of bleeding was found in the entire duodenum. Biopsies were taken with a cold forceps for histology. Impression: - Normal esophagus. - Erythematous mucosa in the gastric body. Biopsied. - Erythematous duodenopathy. Biopsied. Recommendation: - Await pathology results. - Continue present medications. Procedure Code(s): --- Professional --- 74125, Small intestinal endoscopy, enteroscopy beyond second portion of duodenum, not including ileum; with biopsy, single or multiple CPT copyright 2021 [employer]. All rights reserved. The codes documented in this report are preliminary and upon pantry chef review may be revised to meet current compliance requirements. Neal Moreno DO 01/19/2025 2:38:06 PM This report has been signed electronically. Number of Addenda: 0 Note Initiated On: 01/19/2025 1:51 PM
--- NOTE | 2025-01-19 14:41 | OP.COLON_ITS ---
Patient Name: Rossy Hayes Procedure Date: 01/19/2025 2:06 PM Date of : 1990 Age: 34 Procedure: Colonoscopy Indications: Generalized abdominal pain, Chronic diarrhea Providers: Neal Moreno DO Referring MD: Didi Bennett Medicines: Monitored Anesthesia Care Patient Profile: This is a 34 year old female. Refer to note in patient chart for documentation of history and physical. Patient has symptoms of acute abdominal cramping, acute left upper quadrant abdominal pain, chronic epigastric abdominal pain, acute dyspepsia and acute nausea. Last Colonoscopy: date unknown. Unable to locate last colonoscopy report. Complications: No immediate complications. Procedure: Pre-Anesthesia Assessment: - Prior to the procedure, a History and Physical was performed, and patient medications and allergies were reviewed. The patient is competent. The risks and benefits of the procedure and the sedation options and risks were discussed with the patient. All questions were answered and informed consent was obtained. Patient identification and proposed procedure were verified by the physician in the pre-procedure area. Mental Status Examination: alert and oriented. Airway Examination: normal oropharyngeal airway and neck mobility. Respiratory Examination: clear to auscultation. CV Examination: normal. Prophylactic Antibiotics: The patient does not require prophylactic antibiotics. Prior Anticoagulants: The patient has taken no anticoagulant or antiplatelet agents except for NSAID medication. ASA Grade Assessment: II - A patient with mild systemic disease. After reviewing the risks and benefits, the patient was deemed in satisfactory condition to undergo the procedure. The anesthesia plan was to use monitored anesthesia care (MAC). Immediately prior to administration of medications, the patient was re-assessed for adequacy to receive sedatives. The heart rate, respiratory rate, oxygen saturations, blood pressure, adequacy of pulmonary ventilation, and response to care were monitored throughout the procedure. The physical status of the patient was re-assessed after the procedure. After I obtained informed consent, the scope was passed under direct vision. Throughout the procedure, the patient's blood pressure, pulse, and oxygen saturations were monitored continuously. The pediatric colonoscope was introduced through the anus and advanced to the terminal ileum. The colonoscopy was performed without difficulty. The patient tolerated the procedure well. Scope In: 2:11:41 PM Scope Withdrawal Time 0 hours 8 minutes 27 seconds Scope Out: 2:20:13 PM Total Procedure Duration Time 0 hours 8 minutes 32 seconds Findings: The perianal and digital rectal examinations were normal. An area of mildly congested mucosa was found in the sigmoid colon, in the transverse colon and in the ascending colon. Biopsies were taken with a cold forceps for histology. Verification of patient identification for the specimen was done. Estimated blood loss was minimal. A patchy area of the terminal ileum was congested. Biopsies were taken with a cold forceps for histology. Verification of patient identification for the specimen was done. Estimated blood loss was minimal. Impression: - Congested mucosa in the sigmoid colon, in the transverse colon and in the ascending colon. Biopsied. - Congested mucosa in the terminal ileum. Biopsied. Recommendation: - Discharge patient to home. - Resume previous diet. - Continue present medications. - Await pathology results. - Repeat colonoscopy in 5 years for surveillance based on pathology results. Procedure Code(s): --- Professional --- 02527, Colonoscopy, flexible; with biopsy, single or multiple CPT copyright 2021 [employer]. All rights reserved. The codes documented in this report are preliminary and upon industrial coffee grinder review may be revised to meet current compliance requirements. Neal Moreno DO 01/19/2025 2:41:18 PM This report has been signed electronically. Number of Addenda: 0 Note Initiated On: 01/19/2025 2:06 PM
--- NOTE | 2025-01-19 14:41 | OP.PROVAT_ITS ---
01/19/2025 Didi Bennett Re : Colonoscopy procedure for Rossy Landeroskeenan Bennett This procedure was performed on Sunday, January 19, 2025. My impressions and recommendations are as follows: Impressions : - Congested mucosa in the sigmoid colon, in the transverse colon and in the ascending colon. Biopsied. - Congested mucosa in the terminal ileum. Biopsied. Recommendations : - Discharge patient to home. - Resume previous diet. - Continue present medications. - Await pathology results. - Repeat colonoscopy in 5 years for surveillance based on pathology results. My findings are described in the full procedure note, which is enclosed. If I can be of further assistance, please feel free to contact me at . Sincerely, Neal Moreno, 01/19/2025 2:41:18 PM This report has been signed electronically.
--- NOTE | 2025-01-19 15:07 | PCM.POSTANE2 ---
Anesthesia Postop Eval I Sum Postop Eval Completion status Anesthesia document: Postop Eval 1 completed: Yes Anesthesia Postop Eval I Summary Anesthesia Postop Eval I Summary: Anesthesia Postop Eval I: Assessment Summary Airway patent Yes 01/19/25 14:32 [email or web address] Spontaneous unlabored Yes 01/19/25 14:32 [email or web address] respirations Mental status Asleep 01/19/25 14:32 [email or web address] nausea No 01/19/25 14:32 [email or web address] Vomiting No 01/19/25 14:32 [email or web address] Anesthesia Postop Eval I: Fluid Summary Crystalloid volume administer 700 01/19/25 14:32 [email or web address] (ml) Colloids volume administered ( ml) Blood Product volume administered (ml) Total IV fluid infused 700 01/19/25 14:32 [email or web address] Anesthesia Postop Eval I: Summary Notes Anesthesia Complication No 01/19/25 14:32 [email or web address] Anesthesia Complication Comment: Post-operative progress note Anesthesia: Postop Eval II Evaluation Mental status: Awake and Calm Pain Level: 0 nausea: No Vomiting: No Complications Anesthesia Complication: No
== END 2025-01-19 15:52 | disposition home or self-care (01) ==
LOC: EN 12:12 → AC 12:13
PROVIDERS: Anesthesiology; PCP Physician Assistant; Referring Provider Physician Assistant; Visit Provider Internal Medicine Gastroenterology
PROC: 0DJD8ZZ Inspection of Lower Intestinal Tract, Via Natural or Artificial Opening Endoscopic (ICD-10-PCS; CPT 45378; principal; 2025-01-19 13:25)
DX: K50.90 Crohn's disease, unspecified, without complications (principal); R10.84 Generalized abdominal pain; A69.20 Lyme disease, unspecified; E78.00 Pure hypercholesterolemia, unspecified; K21.9 Gastro-esophageal reflux disease without esophagitis; K63.89 Other specified diseases of intestine; K92.1 Melena
CPT/HCPCS: 45380; 44361; 81025; 88305; 88342; J2405